=== PATIENT | male | born 1990 | race African-American/Black ===

== ENCOUNTER 2020-02-14 10:02 | Inpatient (IN) | payer OTHER, SELFPAY ==
[2020-02-14] VITALS (10 sets, daily range): BP systolic 96–140; BP diastolic 58–75; PULSE 72–121; RESP 16–28; TEMP 37.3–40.2; O2SAT 95–99
--- NOTE | ~2020-02-14 | XR_ITS ---
EXAMINATION: XR chest 1V portable EXAM DATE: 02/14/2020 11:43 INDICATION: Cough. TECHNIQUE: Portable AP frontal chest x-ray was obtained. Comparison is made to prior examination from 04/13/2018. FINDINGS: Small amount of linear left basilar subsegmental atelectasis. Possible small amount of righ t infrahilar less well-defined airspace disease. The lungs are otherwise clear. There are no pleural effusions. The cardiomediastinal silhouette is within normal limits. There is no pneumothorax susp ected. The bones and soft tissues are unremarkable. IMPRESSION: Small amount of infrahilar atelectasis and possibly developing infection. Reviewed, dictated and finalized at location A. RVISORY CBP OFFICER IMPRESSION: Small amount of infrahilar atelectasis and possibly developing infe ction.
--- NOTE | ~2020-02-14 | XR_ITS ---
EXAMINATION: XR chest 1V portable EXAM DATE: 02/17/2020 09:06 INDICATION: COVID-19, cough. TECHNIQUE: Portable AP frontal chest x-ray was obtained. Comparison is made to prior examination from 02/14/2020. FINDINGS: There is been progression in the mild amount of bilateral infrahilar acute airspace disease , likely acute infectious process. There is no pneumothorax suspected. There are no pleural effusions . Cardiomediastinal silhouette is normal. There are no osseous abnormalities identified. IMPRESSION: Mild bibasilar acute airspace disease, mild interval progression. Reviewed, dictated and finalized at location A. ER SKATES ASSEMBLER
--- NOTE | ~2020-02-14 | CT_ITS ---
EXAMINATION: CTA chest PE protocol DATE: 02/19/2020 15:40 INDICATION: Pleuritic chest pain. Blood tinged sputum. Tachycardia. TECHNIQUE: Computed tomography angiography (CTA) of the chest was performed with 100 mL Omnipaque-350 intravenous contrast timed to evaluate the pulmonary arteries. Coronal maximum intensity projection 3D-reconstructions were created by the technologist. Automated exposure control and iterative reconst ruction technique were employed. Exam dose: 325.64 mGy-cm total exam DLP. COMPARISON: 02/17/2020 portable AP chest FINDINGS: There is moderate opacification of the pulmonary arteries and no evidence of pulmonary embo lism. No thoracic aortic aneurysm or dissection. Normal heart size. The thyroid gland appears of normal size and homogeneous enhancement. Mild bilateral hilar gosia and mediastinal gosia prominence, likely reactive to bilateral pulmonary i nfiltrates. There are are prominent scattered bilateral patchy consolidating infiltrates involving al l lobes, most prominent in the right upper and lower lobes. The findings suggest bilateral pneumonia. Normal morphology of the adrenal glands. Included upper abdominal structures are unremarkable. IMPRESSION: Bilateral pneumonia with probable mild bilateral hilar and mediastinal reactive lymph no de prominence No evidence of pulmonary embolism Reviewed, dictated and finalized at Location A. Reviewed, dictated and finalized at location A. CH OPERATIONS COORDINATOR IMPRESSION: Bilateral pneumonia with probable mild bilateral hilar and mediast inal reactive lymph node prominence No evidence of pulmonary embolism
--- NOTE | ~2020-02-14 | XR_ITS ---
EXAMINATION: XR chest 1V portable INDICATION: Cough, COVID 19 pneumonia TECHNIQUE: Portable AP chest at 1437 hours COMPARISON: 02/19/2020, 02/17/2020 FINDINGS: Patchy bilateral airspace opacities persist with slight worsening in the left lung base. Th ere is no pleural effusion or pneumothorax. The cardiomediastinal silhouette is normal. The visualize d osseous structures are unremarkable. IMPRESSION: 1. Patchy bilateral airspace opacities, with slight worsening in the left lung base, consistent with COVID 19 pneumonia. Reviewed, dictated and finalized at location A. ATION MANAGERS
--- NOTE | 2020-02-14 11:01 | ECG_ITS ---
Measurements Intervals [place] Rate: 116 P: 40 NE: 139 QRS: 37 QRSD: 87 T: 37 QT: 289 QTc: 403 Interpretive Statements SINUS TACHYCARDIA NONSPECIFIC ST & T-WAVE ABNORMALITY- INFERIOR LEADS ABNORMAL ECG Electronically Signed On 02-14-2020 13:29:37 TIE CUTTER by Sarbjit Figueroa D.O.
--- NOTE | 2020-02-14 11:10 | ED.FEVER ---
HPI - Fever General Chief Complaint: Fever Stated Complaint: recurring fever, coughing up mucous Time Seen by Provider: 02/14/20 10:37 Source: patient Mode of arrival: ambulatory Limitations: no limitations History of Present Illness HPI Narrative: This patient is a 29 year old male with history of asthma who presents for evaluation of fever. He has been having a fever for the past 3 days. This morning he had a fever of 103 F at 7 am . He states he took tylenol 1000 mg and elliot seltzer at that time. He reports cough that is productive with yellow and green sputum. He denies chest pain or sob. He reports diarrhea but denies nausea or vomiting. He reports abdominal pain only when he coughs. He had a rapid covid test that was negative 2 days ago. Related Data Home Medications Medication Instructions Recorded Confirmed albuterol sulfate 1 inh INHALATION QID PRN 02/27/19 02/14/20 fluticasone propion-salmeterol 1 puff INHALATION BID 02/27/19 02/14/20 [AirDuo RespiClick] Allergies Allergy/AdvReac Type Severity Reaction Status Date / Time dog dander Allergy Unknown Unknown Verified 02/14/20 15:57 ibuprofen Allergy Unknown LIP Verified 02/14/20 15:57 SWELLING aspirin Allergy Swelling Verified 02/14/20 15:57 of Lip/Tongue/Throat Review of Systems Review of Systems: All systems reviewed & are unremarkable except as noted in HPI and below Constitutional: Constitutional: Reports chills and Reports fever(s) Cardiovascular: Cardiovascular: Denies chest pain Respiratory: Respiratory: Reports cough and Denies dyspnea Gastrointestinal: Gastrointestinal: Reports abdominal pain, Reports diarrhea and Denies nausea Neurologic: Reports headache(s) [facility] Past Medical History Medical History (Updated 02/14/20 @ 19:13 by Hui Villegas MD) Asthma Sickle cell trait Surgical History Surgical History (Updated 02/27/19 @ 18:35 by Pa Sawyer MD) No pertinent past surgical history Social History Social History (Updated 02/14/20 @ 15:23 by Kelly Ho PA-C) Social History: The patient lives in [place] with his . He works at [employer]. No alcohol, tobacco, or illicit substance use. He designates his is his surrogate decision maker and he wishes to be a full code. Smoking status: Never smoker Alcohol intake: current Drinks per week: 1 Substance use: never Substance use type: does not use Gender identity (if verbalized by the patient): Male Sexual Orientation (if Verbalized by the Patient): Straight or Heterosexual Spiritual care concerns: No Exam Const: General: no acute distress and alert Orientation/consciousness: patient oriented x3 HENMT: Head: atraumatic Face and sinus: face symmetric Eyes: EOM: EOMs intact bilaterally Resp: Effort & Inspection: normal respiratory effort and no retractions Auscultation: clear to auscultation bilaterally Cardio: Rate: tachycardic Rhythm: regular rhythm Heart sounds: no murmurs GI: GI Palp: Yes Soft to palpation, No Tenderness to palpation present (GI) and No Guarding due to palpation present (GI) Auscultation: normal bowel sounds Skin: General skin exam: normal color Rashes: no rashes Neuro: General: patient oriented x3 and moves all extremities Extrem: General: normal to inspection and no pedal edema Course Consultations Consultation #1: I Discussed case with Kelly ho who accepts patient to admission with pneumonia, sepsis. PUI covid. Date: 02/14/20 Time: 14:17 Vital Signs Vital signs: Vital Signs Temperature 104.3 F H 02/14/20 10:12 Pulse Rate 114 H 02/14/20 10:12 Respiratory Rate 22 H 02/14/20 10:12 Blood Pressure 140/75 02/14/20 10:12 Pulse Oximetry 97 02/14/20 10:12 Temperature 99.1 F 02/14/20 16:00 Pulse Rate 107 H 02/14/20 16:00 Respiratory Rate 18 02/14/20 16:00 Blood Pressure 124/63 02/14/20 16:00 Pulse Oximetry 99
[2020-02-14] MEDS: ALBUTEROL SULFATE (*SP) AEROSOL 1 PUFF 2 PUFF INHALATION (11:20)
[2020-02-14 11:24] LABS: Alveolar/Arterial O2 Gradient 62.3 mmHg; Base Excess ABG -0.4 mEq/l (+/-2.0); Carboxyhemoglobin 0.5 % THb (0-2.0); Fractional Inspired Oxygen 21 %; HCO3 ABG 21.8 mEq/l (22.0-26.0); Methemoglobin ABG 0.3 %THb (0-1.5); Oxygen Content ABG 18.1 %vol (16.0-22.0); Oxyhemoglobin 90.1 % THb (90.0-100.0); PCO2 ABG 29.4 mmHg (35.0-45.0); PO2 ABG 52.2 mmHg (80.0-100.0); PO2 FiO2 Ratio Arterial Blood 2.49 %; Reduced Hemoglobin 9.1 %THb (0-5.0); Total Hemoglobin 14.3 g/dL (12.0-18.0); pH ABG 7.488 (7.350-7.450)
[2020-02-14 11:25] LABS: Device ROOM AIR; Modified Allen's Test Pass; Site Drawn LEFT RADIAL
[2020-02-14] MEDS: ONDANSETRON INJ 4 MG/2 ML VIAL IV PUSH (11:47)
[2020-02-14] MEDS: SODIUM CHLORIDE 0.9% IV 1,000 ML 999 ML IV CONT ×3 (11:47→14:40)
[2020-02-14 11:50] LABS: Basophils Percent Auto 0.6 % (0.2-1.2); Eosinophils Percent Auto 0.4 % (0-4.4); Hematocrit 44.5 % (42.0-52.0); Hemoglobin 13.8 g/dL (14.0-18.0); Immature Granulocyte Absolute 0.02 K/mm3 (0.00-0.031); Immature Granulocyte Percent A 0.3 % (0-0.5); Lymphocytes Absolute Auto 0.41 K/mm3 (0.9-3.2); Lymphocytes Percent Auto 6.1 % (18.3-44.2); Mean Corpuscular Hemoglobin 22.3 pg (26-34); Mean Corpuscular Volume 71.9 fl (80-100); Mean Platelet Volume 10.3 fl (7.4-10.4); Monocytes Absolute Auto 0.9 K/mm3 (0.1-0.6); Monocytes Percent Auto 12.9 % (2.6-8.5); Neutrophils Absolute Auto 5.3 K/mm3 (1.3-6.7); Neutrophils Percent Auto 79.7 % (45.5-73.1); Platelet Count Result 201 k/mm3 (150-375); Red Blood Count 6.19 M/mm3 (4.6-6.20); Red Cell Distribution Width 15.8 % (11.5-14.5); White Blood Count 6.7 K/mm3 (4.5-10.0)
[2020-02-14 12:04] LABS: Alanine Aminotransferase 23 U/L (4-50); Albumin Level 4.2 g/dL (3.5-5.1); Alkaline Phosphatase 98 U/L (38-126); Anion Gap 9 mmol/L (8-16); Aspartate Amino Transferase 31 U/L (17-59); Bilirubin,Total 0.6 mg/dL (0.2-1.3); Blood Urea Nitrogen 13 mg/dL (9-20); CRP 1.6 mg/dL (<1.0); Carbon Dioxide 27 mmol/L (22-30); Chloride 100 mmol/L (98-107); Estimated CRCL calculation 95 ml/min; Estimated Glomerular Filt Rate > 60; Glucose 104 mg/dL (75-110); Potassium 4.1 mmol/L (3.4-5.0); Sodium 136 mmol/L (137-145)
[2020-02-14 12:28] LABS: Prothrombin Time 14.1 Seconds (11.1-14.7)
[2020-02-14 12:29] LABS: Partial Thromboplastin Time 31.1 SECONDS (22.3-36.8)
[2020-02-14 12:32] LABS: Lactic Acid Reflex 2.2 mmol/L (0.7-2.1)
[2020-02-14 14:59] LABS: Add Urine Microscopic? YES; Appearance Urine Clear (Clear); Bilirubin Urine Negative (Negative); Blood Urine Negative (Negative); Color Urine Yellow (Yellow); Glucose Urine UA Negative (Negative); Ketones Urine Negative (Negative); Leukocyte Esterase Ur Negative LEU/UL (Negative); Mucus Urine Rare /lpf; Nitrate Urine Negative (Negative); Protein Urine 1+ mg/dL (Negative); RBC Urine 0-2 /hpf (0-2); Specific Grav Ur 1.026 (1.001-1.035); Urobilinogen Urine Negative mg/dL (<2.0); WBC Urine 0-3 /hpf
[2020-02-14 15:16] LABS: Reflex Lactic Acid Yes or No Add Lactic
--- NOTE | 2020-02-14 15:48 | ADMGEN ---
This patient, Jose L Rivera, was admitted to 3 [facility] Surg Room 303-01. Patient/family oriented to hospital policies and general routines including ID bracelet, bed and alarms, visiting hours, pain management, procedures, bathroom and other care routines, personal items, smoking policy, room service/diet, and visiting hours. Information on how to activate the Rapid Response Team has been discussed. Patient/Family are encouraged to report perceived risks to care and to ask questions if they do not understand what they are told or what they should do.
[2020-02-14 16:37] LABS: Lactic Acid 1.6 mmol/L (0.7-2.1)
[2020-02-14] MEDS: SODIUM CHLORIDE 0.9% IV 1,000 ML 125 ML IV CONT (16:37)
--- NOTE | 2020-02-14 17:30 | PM.IMHP ---
H&P: HPI History of Present Illness Date/Time: 02/14/20 17:30 Chief Complaint: Fever, productive cough. Narrative: Jose L Rivera is a 29-year-old male with asthma who presented to the emergency department earlier today via private vehicle from home with multiple complaints including fever and productive cough. He began feeling poorly on Tuesday with generalized malaise and low-grade fever. The following day he developed chills, sweats, and cough productive of green/yellow phlegm. He also reports 1 to 2 loose stools per day in addition to fatigue, headache, sinus congestion, and body aches. Acetaminophen and Deanne-Epps have provided him with little benefit. He reportedly had a rapid COVID test at work on Tuesday which was negative although several of his coworkers have had COVID. The patient has been diligent about wearing his mask at work. He lives at home with his , and she has not had similar symptoms. Review of Systems Review of Systems: Narrative: Twelve systems were reviewed with pertinent positives and negatives as per HPI. He denies vomiting. No significant sore throat. No dysuria, urgency, or urinary hesitancy. It sounds as though he has hidradenitis suppurativa and within the last couple of weeks he has had to lumps pop up in the left axilla which are somewhat tender to palpation. There is been no drainage, erythema, or warmth at the site. Asthma is well controlled, he rarely has to use his rescue inhaler. Except as documented, all other systems were reviewed and are negative. [facility] Past Medical History Medical History Asthma Sickle cell trait Surgical History Surgical History No pertinent past surgical history Family History Family History (Updated 02/14/20 @ 22:43 by Kelly Ho PA-C) Father Sickle cell disease Sibling Sickle cell trait Mother Drug overdose Social History Social History (Updated 02/14/20 @ 22:43 by Kelly Ho PA-C) Social History: The patient lives in [place] with his . He has no children. He works at [employer]. Lifelong nonsmoker. Consumes perhaps 1 alcoholic beverage a week. No illicit substance use. He designates his as his surrogate decision maker and he wishes to be a full code. Gender identity (if verbalized by the patient): Male Sexual Orientation (if Verbalized by the Patient): Straight or Heterosexual Spiritual care concerns: No Meds Home Medications and Allergies Home Medications Medication Instructions Recorded Confirmed Type albuterol sulfate 1 inh INHALATION QID PRN 02/27/19 02/14/20 History fluticasone propion-salmeterol 1 puff INHALATION BID 02/27/19 02/14/20 History [AirDuo RespiClick] Allergies Allergy/AdvReac Type Severity Reaction Status Date / Time dog dander Allergy Unknown Unknown Verified 02/14/20 15:57 ibuprofen Allergy Unknown LIP Verified 02/14/20 15:57 SWELLING aspirin Allergy Swelling Verified 02/14/20 15:57 of Lip/Tongue/Throat Vital Signs Vital Signs - 24 hr 02/14/20 10:12 02/14/20 10:15 02/14/20 11:00 Temperature 104.3 F H Pulse Rate 114 H 72 Respiratory Rate 22 H 22 H 18 Blood Pressure 140/75 Pulse Oximetry 97 97 97 02/14/20 13:37 02/14/20 14:00 02/14/20 14:43 Temperature 102.8 F H 100.8 F H Pulse Rate 121 H 112 H Respiratory Rate 17 28 H Blood Pressure 96/63 L 112/58 L Pulse Oximetry 95 97 Exam Narrative: Exam Narrative: General: Mildly ill-appearing male sitting up bed in no distress. Weight: 87.1 kg. BMI: 20.7. HEENT: PERRL, EOMI. Sclerae anicteric. Oral mucosa tacky. Neck: Supple. No lymphadenopathy. Respiratory: Scattered rhonchi which improved with coughing. Cardiovascular: Tachycardic with S1-S2. Heart rate around 105 at the time my evaluation. Gastrointestinal: Abdomen
[2020-02-14] MEDS: ACETAMINOPHEN 325 MG TABLET 650 MG PO ×2 (18:31→22:50)
--- NOTE | 2020-02-14 22:47 | PC.NURSE ---
Ice packs applied to pt armpits, neck, and legs for fever.
[2020-02-15] VITALS (12 sets, daily range): BP systolic 120–139; BP diastolic 57–89; PULSE 85–102; RESP 16–20; TEMP 37.1–38.2; O2SAT 94–100
[2020-02-15] MEDS: SODIUM CHLORIDE 0.9% IV 1,000 ML 125 ML IV CONT (00:19)
[2020-02-15] MEDS: ACETAMINOPHEN 325 MG TABLET 650 MG PO ×4 (03:30→21:10)
[2020-02-15 06:10] LABS: Basophils Percent Auto 0.5 % (0.2-1.2); Hematocrit 39.7 % (42.0-52.0); Hemoglobin 12.4 g/dL (14.0-18.0); Immature Granulocyte Absolute 0.01 K/mm3 (0.00-0.031); Immature Granulocyte Percent A 0.2 % (0-0.5); Lymphocytes Absolute Auto 1.11 K/mm3 (0.9-3.2); Lymphocytes Percent Auto 25.6 % (18.3-44.2); Mean Corpuscular HGB Conc 31.2 g/dl (32-36); Mean Corpuscular Hemoglobin 22.7 pg (26-34); Mean Corpuscular Volume 72.6 fl (80-100); Monocytes Absolute Auto 0.6 K/mm3 (0.1-0.6); Monocytes Percent Auto 14.3 % (2.6-8.5); Neutrophils Absolute Auto 2.6 K/mm3 (1.3-6.7); Neutrophils Percent Auto 59.4 % (45.5-73.1); Platelet Count Result 164 k/mm3 (150-375); Red Blood Count 5.47 M/mm3 (4.6-6.20); White Blood Count 4.3 K/mm3 (4.5-10.0)
[2020-02-15] MEDS: SODIUM CHLORIDE 0.9% IV 1,000 ML 85 ML IV CONT (08:24)
[2020-02-15 08:54] LABS: Alanine Aminotransferase 19 U/L (4-50); Albumin Level 3.2 g/dL (3.5-5.1); Alkaline Phosphatase 59 U/L (38-126); Anion Gap 7 mmol/L (8-16); Aspartate Amino Transferase 33 U/L (17-59); Bilirubin,Total 0.3 mg/dL (0.2-1.3); Blood Urea Nitrogen 10 mg/dL (9-20); Calcium 7.9 mg/dL (8.4-10.2); Carbon Dioxide 25 mmol/L (22-30); Chloride 102 mmol/L (98-107); Estimated CRCL calculation 95 ml/min; Estimated Glomerular Filt Rate > 60; Glucose 95 mg/dL (75-110); Magnesium 1.5 mg/dL (1.6-2.3); Potassium 3.4 mmol/L (3.4-5.0); Sodium 134 mmol/L (137-145)
[2020-02-15 09:20] LABS: CRP 5.6 mg/dL (<1.0); Lactate Dehydrogenase 477 U/L (313-618)
--- NOTE | 2020-02-15 09:43 | PM.IMPN ---
Progress Note: A&P Assessment and Plan (1) Sepsis: Code(s): A41.9 - Sepsis, unspecified organism Status: Acute Assessment and Plan: Patient met criteria for sepsis upon admission supported by fever, tachycardia, tachypnea, and elevated lactic acid level. Source is not entirely clear but CXR demonstrates possible developing infection and he does endorse respiratory symptoms. His lactic acid level normalized following IV fluid rehydration. He has been febrile with T-max of 104.3?. His fever seems to be improving and he had only a low-grade fever this morning. CRP is elevated. He has mild leukopenia. Continue with gentle IV fluids Continue IV antibiotics at this time Blood culture and sputum culture pending Monitor vital signs and electrolytes closely (2) Community acquired pneumonia: Code(s): J18.9 - Pneumonia, unspecified organism Status: Acute Assessment and Plan: CXR concerning for development of infection. Patient is febrile. He reports he yellow sputum production and cough. He is maintaining adequate oxygen saturations on room air. Continue IV ceftriaxone and azithromycin Urine Legionella and pneumococcal antigens are pending Sputum culture is pending Supportive care to include acetaminophen as needed for fever, bronchodilators, expectorants. (3) Suspected COVID-19 virus infection: Code(s): Z20.828 - Contact with and (suspected) exposure to other viral communicable diseases Status: Acute Assessment and Plan: Patient reports contact with coworkers who have had COVID who reports compliance with asking and distance thing. He reportedly had a negative rapid COVID test on 02/10. Continue isolation precautions while awaiting COVID test results If patient is positive for COVID, will discontinue antibiotics. At this time, he is not a candidate for dexamethasone or remdesivir as he has no oxygen requirements. Supportive care as above Trend acute phase reactants. (4) Asthma: Code(s): J45.909 - Unspecified asthma, uncomplicated Status: Inactive Assessment and Plan: Mild. Not in acute exacerbation. He denies wheezing. Lungs are clear to auscultation. Continue bronchodilators as needed Additional Plan Magnesium slightly low and will be supplemented. Will continue to monitor magnesium. Subjective Date/time seen: 02/15/20 09:43 Interval history: Date of service: 02/15/2020 Jose L Rivera is a 29-year-old male with history of asthma and sickle cell trait who is seen in follow-up for sepsis of unspecified origin, likely pneumonia. He reports he is feeling better today. He is still having fevers and endorsing chills but this seems to be improving. Denies sweats. He reports occasional cough productive of yellowish sputum. He denies shortness of breath, chest pain, or palpitations. He denies sore throat, and nausea, or dysgeusia. He has been able to ambulate without difficulty and denies HOLM. He had previously been endorsing headaches and body aches. His headaches have resolved and his body aches seem to be improving. He denies nausea or vomiting. He has been eating well. He denies abdominal pain. He had a loose stool yesterday. He denies any urinary symptoms. He has no additional concerns at this time. Review of Systems Review of Systems: All systems reviewed & are unremarkable except as noted in HPI and below Exam Narrative: Exam Narrative: Mr. Rivera is a well-nourished, well-appearing 29-year-old male who is lying semi-recumbent in bed. He appears comfortable and is in NARD. HR 88, BP 128/61, RR 16, T 99.8?, 96% on room air Neuro: awake, alert and oriented x4, speech clear, no focal neuro deficits noted HEENMT: normocephalic, atraumatic, EOMI, sclerae anicteric, moist oral mucosa, tongue midline, nares patent Neck: supple, no lymphadenopathy Respiratory: clear to auscultation bilaterally without crackl
[2020-02-15] MEDS: MAGNESIUM SULF 1 GM/D5W 100 ML 1 GM/100 ML BAG IVPB (10:41)
[2020-02-15] MEDS: guaiFENesin 12 HR 600 MG TABCR PO ×2 (10:41→21:11)
[2020-02-16] VITALS (7 sets, daily range): BP systolic 111–137; BP diastolic 62–78; PULSE 94–105; RESP 20; TEMP 37.5–39.4; O2SAT 93–100
[2020-02-16] MEDS: SODIUM CHLORIDE 0.9% IV 1,000 ML 85 ML IV CONT (02:22)
[2020-02-16 06:17] LABS: Hematocrit 39.6 % (42.0-52.0); Hemoglobin 12.5 g/dL (14.0-18.0); Mean Corpuscular HGB Conc 31.6 g/dl (32-36); Mean Corpuscular Hemoglobin 22.2 pg (26-34); Mean Corpuscular Volume 70.3 fl (80-100); Mean Platelet Volume 9.6 fl (7.4-10.4); Platelet Count Result 180 k/mm3 (150-375); Red Blood Count 5.63 M/mm3 (4.6-6.20); Red Cell Distribution Width 14.6 % (11.5-14.5); White Blood Count 4.9 K/mm3 (4.5-10.0)
[2020-02-16 07:18] LABS: Alanine Aminotransferase 20 U/L (4-50); Albumin Level 3.5 g/dL (3.5-5.1); Alkaline Phosphatase 61 U/L (38-126); Anion Gap 9 mmol/L (8-16); Aspartate Amino Transferase 39 U/L (17-59); Bilirubin,Total 0.3 mg/dL (0.2-1.3); Blood Urea Nitrogen 10 mg/dL (9-20); CRP 5.3 mg/dL (<1.0); Calcium 8.5 mg/dL (8.4-10.2); Carbon Dioxide 24 mmol/L (22-30); Chloride 103 mmol/L (98-107); Estimated CRCL calculation 113 ml/min; Estimated Glomerular Filt Rate > 60; Glucose 106 mg/dL (75-110); Magnesium 1.7 mg/dL (1.6-2.3); Potassium 3.7 mmol/L (3.4-5.0); Sodium 136 mmol/L (137-145)
[2020-02-16] MEDS: ENOXAPARIN 40 MG/0.4 ML SYRINGE SUB-Q (08:26)
[2020-02-16] MEDS: guaiFENesin 12 HR 600 MG TABCR PO ×2 (08:27→20:15)
--- NOTE | 2020-02-16 11:01 | PM.IMPN ---
Progress Note: A&P Assessment and Plan (1) Sepsis: Code(s): A41.9 - Sepsis, unspecified organism Status: Acute Assessment and Plan: Patient met criteria for sepsis upon admission supported by fever, tachycardia, tachypnea, and elevated lactic acid level. Source is not entirely clear but CXR demonstrates possible developing infection and he does endorse respiratory symptoms. His lactic acid level normalized following IV fluid rehydration. He has been febrile with T-max of 104.3?. He is mildly tachycardic. CRP is elevated. He is feeling well. Will administer 500 ml fluid bolus and then will continue with maintenance fluids. Continue IV antibiotics at this time Blood culture pending. Sputum culture not performed due to oropharyngeal contamination and will be repeated Patient reporting watery stools therefore will check stool culture for C. diff or other GI infection. COVID-19 test pending Monitor vital signs and electrolytes closely Acetaminophen for fever (2) Fever: Code(s): R50.9 - Fever, unspecified Status: Acute Assessment and Plan: Patient presented with fevers; Tmax 104.3. He had low grade fevers yesterday and his temp was 103.0? this morning. Fevers seem to be responding to Tylenol and then return. Related to sepsis as above. Continue PO acetaminophen as needed for fever. Can consider transition to IV ofirmev if needed. Cannot supplement with ibuprofen or other NSAID due to allergy. Monitor temperature closely Ice packs as needed (3) Community acquired pneumonia: Code(s): J18.9 - Pneumonia, unspecified organism Status: Acute Assessment and Plan: CXR concerning for development of infection. Patient is febrile. He reports he has white sputum production and cough. He is maintaining adequate oxygen saturations on room air. Influenza negative. Covid-19 pending. Continue IV ceftriaxone and azithromycin Urine Legionella and pneumococcal antigens are pending Repeat sputum culture has been ordered as above Supportive care to include acetaminophen as needed for fever, bronchodilators, expectorants. (4) Suspected COVID-19 virus infection: Code(s): Z20.828 - Contact with and (suspected) exposure to other viral communicable diseases Status: Acute Assessment and Plan: Patient reports contact with coworkers who have had COVID but reports compliance with masking and distancing. He reportedly had a negative rapid COVID test on 02/10. Continue isolation precautions while awaiting COVID test results If patient is positive for COVID, will discontinue antibiotics. At this time, he is not a candidate for dexamethasone or remdesivir as he has no oxygen requirements. Supportive care as above Trend acute phase reactants. (5) Asthma: Code(s): J45.909 - Unspecified asthma, uncomplicated Status: Inactive Assessment and Plan: Mild. Not in acute exacerbation. He denies wheezing. Lungs are clear to auscultation. Continue bronchodilators as needed Resume home AirDuo inhaler per patient request (6) DVT prophylaxis: Code(s): Z29.9 - Encounter for prophylactic measures, unspecified Status: Acute Assessment and Plan: Patient has refused Lovenox injections. Discussed risk for clotting, especially if patient has COVID-19. He adamantly denies Lovenox or other anticoagulant medications at this time. He states he prefers to wait until the results of COVID test are available. He reports that he would rather ambulate frequently. He has agreed to [facility] which will be employed. Subjective Date/time seen: 02/16/20 11:01 Interval history: Date of service: 02/16/2020 Jose L Rivera is a 29-year-old male with history of asthma and sickle cell trait who is seen in follow-up for sepsis secondary to suspected pneumonia. he is feeling well today. He denies shortness of breath, chest pain, palpitations. He is
[2020-02-16] MEDS: SODIUM CHLORIDE 0.9% IV 500 ML IV CONT (12:00)
[2020-02-16] MEDS: ACETAMINOPHEN 325 MG TABLET 650 MG PO ×2 (15:00→23:40)
[2020-02-16 19:30] LABS: SARS-CoV-2 RNA PCR Positive
[2020-02-17] VITALS (9 sets, daily range): BP systolic 116–135; BP diastolic 70–81; PULSE 82–102; RESP 18–20; TEMP 36.9–38.8; O2SAT 91–99
[2020-02-17 04:54] LABS: Pneumococcal Antigen Urine Not Detected (Not Detected)
[2020-02-17 06:34] LABS: Basophils Percent Auto 0.3 % (0.2-1.2); Hematocrit 44.1 % (42.0-52.0); Hemoglobin 13.9 g/dL (14.0-18.0); Lymphocytes Absolute Auto 0.99 K/mm3 (0.9-3.2); Lymphocytes Percent Auto 30.7 % (18.3-44.2); Mean Corpuscular HGB Conc 31.5 g/dl (32-36); Mean Corpuscular Hemoglobin 22.9 pg (26-34); Mean Corpuscular Volume 72.5 fl (80-100); Mean Platelet Volume 9.8 fl (7.4-10.4); Monocytes Absolute Auto 0.2 K/mm3 (0.1-0.6); Monocytes Percent Auto 7.4 % (2.6-8.5); Neutrophils Percent Auto 61.6 % (45.5-73.1); Platelet Count Result 146 k/mm3 (150-375); Red Blood Count 6.08 M/mm3 (4.6-6.20); Red Cell Distribution Width 15.2 % (11.5-14.5); White Blood Count 3.2 K/mm3 (4.5-10.0)
[2020-02-17 06:52] LABS: Alanine Aminotransferase 22 U/L (4-50); Albumin Level 3.7 g/dL (3.5-5.1); Alkaline Phosphatase 60 U/L (38-126); Anion Gap 10 mmol/L (8-16); Aspartate Amino Transferase 42 U/L (17-59); Bilirubin,Total 0.4 mg/dL (0.2-1.3); Blood Urea Nitrogen 8 mg/dL (9-20); Calcium 8.5 mg/dL (8.4-10.2); Carbon Dioxide 23 mmol/L (22-30); Chloride 103 mmol/L (98-107); Estimated CRCL calculation 113 ml/min; Estimated Glomerular Filt Rate > 60; Glucose 94 mg/dL (75-110); Potassium 4.1 mmol/L (3.4-5.0); Sodium 136 mmol/L (137-145)
[2020-02-17] MEDS: guaiFENesin 12 HR 600 MG TABCR PO ×2 (09:19→20:34)
[2020-02-17 09:24] LABS: Legionella pneumophila Ag Ur Not Detected (Not Detected)
--- NOTE | 2020-02-17 11:09 | P.PNIM_ITS ---
Progress Note: A&P Assessment and Plan (1) Sepsis: Code(s): A41.9 - Sepsis, unspecified organism Status: Acute Assessment and Plan: Patient met criteria for sepsis upon admission supported by fever, tachycardia, tachypnea, and elevated lactic acid level. Suspect secondary to viral infection. His lactic acid level normalized following IV fluid rehydration. He has been febrile with T-max of 104.3?. Tachycardia improving. Tachypnea resolved. He is feeling well. Influenza negative. * Continue normal saline 85 ml/hr * IV antibiotics have been discontinued as this is most likely viral * Blood culture pending with NGTD on prelim results. Sputum culture not performed due to oropharyngeal contamination and will be repeated * Monitor vital signs and electrolytes closely * Acetaminophen for fever (2) Fever: Code(s): R50.9 - Fever, unspecified Status: Acute Assessment and Plan: Patient presented with fevers; Tmax 104.3. He had temps up to 102 yesterday and today low grade 99.7. Fevers seem to be responding to Tylenol. Related to sepsis as above. * Continue PO acetaminophen as needed for fever. Can consider transition to IV ofirmev if needed. Cannot supplement with ibuprofen or other NSAID due to allergy. * Monitor temperature closely * Ice packs as needed (3) Pneumonia due to COVID-19 virus: Code(s): U07.1 - COVID-19; J12.89 - Other viral pneumonia Status: Acute Assessment and Plan: Initial CXR concerning for development of infection. He has been febrile complain of white sputum production and cough. He has been maintaining adequate oxygen saturations on room air. Repeat CXR today shows mild bibasilar acute airspace disease. * Continue isolation precautions * At this time, he is not a candidate for [facility] as he has no oxygen requirements * IV antibiotics have been discontinued as it was highly unlikely is a secondary bacterial pneumonia * Supportive care to include antipyretics, expectorants, and bronchodilators * Trend acute phase reactants (4) Community acquired pneumonia: Code(s): J18.9 - Pneumonia, unspecified organism Status: Acute Assessment and Plan: Symptom onset 02/10/2020. He reports a negative rapid COVID test on 02/10. CXR concerning for development of infection. Patient is febrile. He reports he has white sputum production and cough. He tested positive for COVID on 02/14/20. He is maintaining adequate oxygen saturations on room air. Influenza negative. Covid-19 pending. * Continue IV ceftriaxone and azithromycin * Urine Legionella and pneumococcal antigens are pending * Repeat sputum culture has been ordered as above * Supportive care to include acetaminophen as needed for fever, bronchodilators, expectorants. (5) Asthma: Code(s): J45.909 - Unspecified asthma, uncomplicated Status: Inactive Assessment and Plan: Mild. Not in acute exacerbation. He denies wheezing. Lungs are clear to auscultation. * Continue bronchodilators as needed * Resume home AirDuo inhaler per patient request (6) DVT prophylaxis: Code(s): Z29.9 - Encounter for prophylactic measures, unspecified Status: Acute Assessment and Plan: Patient has refused Lovenox injections. Discussed risk for clotting, especially with COVID-19. He adamantly denies Lovenox or other anticoagulant medications. He reports that he would rather ambulate frequently. He has agreed to [employer] which will be employed. Subjective Date/time seen: 01/22
--- NOTE | 2020-02-17 11:09 | PM.IMPN ---
Progress Note: A&P Assessment and Plan (1) Sepsis: Code(s): A41.9 - Sepsis, unspecified organism Status: Acute Assessment and Plan: Patient met criteria for sepsis upon admission supported by fever, tachycardia, tachypnea, and elevated lactic acid level. Suspect secondary to viral infection. His lactic acid level normalized following IV fluid rehydration. He has been febrile with T-max of 104.3?. Tachycardia improving. Tachypnea resolved. He is feeling well. Influenza negative. Continue normal saline 85 ml/hr IV antibiotics have been discontinued as this is most likely viral Blood culture pending with NGTD on prelim results. Sputum culture not performed due to oropharyngeal contamination and will be repeated Monitor vital signs and electrolytes closely Acetaminophen for fever (2) Fever: Code(s): R50.9 - Fever, unspecified Status: Acute Assessment and Plan: Patient presented with fevers; Tmax 104.3. He had temps up to 102 yesterday and today low grade 99.7. Fevers seem to be responding to Tylenol. Related to sepsis as above. Continue PO acetaminophen as needed for fever. Can consider transition to IV ofirmev if needed. Cannot supplement with ibuprofen or other NSAID due to allergy. Monitor temperature closely Ice packs as needed (3) Pneumonia due to COVID-19 virus: Code(s): U07.1 - COVID-19; J12.89 - Other viral pneumonia Status: Acute Assessment and Plan: Initial CXR concerning for development of infection. He has been febrile complain of white sputum production and cough. He has been maintaining adequate oxygen saturations on room air. Repeat CXR today shows mild bibasilar acute airspace disease. Continue isolation precautions At this time, he is not a candidate for [facility] as he has no oxygen requirements IV antibiotics have been discontinued as it was highly unlikely is a secondary bacterial pneumonia Supportive care to include antipyretics, expectorants, and bronchodilators Trend acute phase reactants (4) Community acquired pneumonia: Code(s): J18.9 - Pneumonia, unspecified organism Status: Acute Assessment and Plan: Symptom onset 02/10/2020. He reports a negative rapid COVID test on 02/10. CXR concerning for development of infection. Patient is febrile. He reports he has white sputum production and cough. He tested positive for COVID on 12/24/20. He is maintaining adequate oxygen saturations on room air. Influenza negative. Covid-19 pending. Continue IV ceftriaxone and azithromycin Urine Legionella and pneumococcal antigens are pending Repeat sputum culture has been ordered as above Supportive care to include acetaminophen as needed for fever, bronchodilators, expectorants. (5) Asthma: Code(s): J45.909 - Unspecified asthma, uncomplicated Status: Inactive Assessment and Plan: Mild. Not in acute exacerbation. He denies wheezing. Lungs are clear to auscultation. Continue bronchodilators as needed Resume home AirDuo inhaler per patient request (6) DVT prophylaxis: Code(s): Z29.9 - Encounter for prophylactic measures, unspecified Status: Acute Assessment and Plan: Patient has refused Lovenox injections. Discussed risk for clotting, especially with COVID-19. He adamantly denies Lovenox or other anticoagulant medications. He reports that he would rather ambulate frequently. He has agreed to SCDs which will be employed. Subjective Date/time seen: 02/17/20 11:09 Interval history: Date of service: 02/17/2020 Jose L Rivera is a 29-year-old male with history of asthma and sickle cell trait who is seen in follow-up for sepsis secondary to suspected pneumonia. He is doing well today. He continues to complain of cough productive of clear/white sputum. He has mild dyspnea but has been able to ambulate to the restroom with no significant HOLM. He de
[2020-02-17] MEDS: ACETAMINOPHEN 325 MG TABLET 650 MG PO (17:41)
[2020-02-18] VITALS (14 sets, daily range): BP systolic 111–130; BP diastolic 68–77; PULSE 82–101; RESP 16–26; TEMP 37.2–39.3; O2SAT 95–100
[2020-02-18] MEDS: SODIUM CHLORIDE 0.9% IV 1,000 ML 85 ML IV CONT ×2 (02:54→12:50)
[2020-02-18] MEDS: LEVALBUTEROL NEB 1.25 MG/3 ML 0.63 MG INHALATION (03:43)
[2020-02-18] MEDS: ACETAMINOPHEN 325 MG TABLET 650 MG PO ×3 (03:57→15:05)
[2020-02-18 06:33] LABS: Hematocrit 41.8 % (42.0-52.0); Hemoglobin 13.4 g/dL (14.0-18.0); Mean Corpuscular HGB Conc 32.1 g/dl (32-36); Mean Corpuscular Hemoglobin 22.6 pg (26-34); Mean Corpuscular Volume 70.6 fl (80-100); Platelet Count Result 171 k/mm3 (150-375); Red Blood Count 5.92 M/mm3 (4.6-6.20); Red Cell Distribution Width 14.8 % (11.5-14.5); White Blood Count 3.6 K/mm3 (4.5-10.0)
[2020-02-18 06:45] LABS: Alanine Aminotransferase 26 U/L (4-50); Albumin Level 3.7 g/dL (3.5-5.1); Alkaline Phosphatase 57 U/L (38-126); Anion Gap 9 mmol/L (8-16); Aspartate Amino Transferase 45 U/L (17-59); Bilirubin,Total 0.5 mg/dL (0.2-1.3); Blood Urea Nitrogen 11 mg/dL (9-20); CRP 4.1 mg/dL (<1.0); Calcium 8.4 mg/dL (8.4-10.2); Carbon Dioxide 24 mmol/L (22-30); Chloride 103 mmol/L (98-107); Estimated CRCL calculation 113 ml/min; Estimated Glomerular Filt Rate > 60; Glucose 101 mg/dL (75-110); Potassium 3.6 mmol/L (3.4-5.0); Sodium 136 mmol/L (137-145)
[2020-02-18] MEDS: guaiFENesin 12 HR 600 MG TABCR PO ×2 (08:35→20:38)
[2020-02-18 10:29] LABS: Lactate Dehydrogenase 656 U/L (313-618)
[2020-02-18 10:42] LABS: Lactate Dehydrogenase 565 U/L (313-618)
[2020-02-18 10:55] LABS: Lactate Dehydrogenase 759 U/L (313-618)
--- NOTE | 2020-02-18 11:01 | PM.IMPN ---
Progress Note: A&P Assessment and Plan (1) Sepsis: Code(s): A41.9 - Sepsis, unspecified organism Status: Acute Assessment and Plan: Patient met criteria for sepsis upon admission supported by fever, tachycardia, tachypnea, and elevated lactic acid level. Suspect secondary to COVID-19. His lactic acid level normalized following IV fluid rehydration. He has been febrile with T-max of 104.3?. Tachycardia improving. Tachypnea resolved. Influenza negative. Continue normal saline 85 ml/hr IV antibiotics discontinued 02/17 as this is most likely secondary to viral illness Blood culture pending with NGTD on prelim results. 1st sputum culture not performed due to oropharyngeal contamination and second shows mckayla of normal jose. Stool cultures collected as patient endorsed watery stool, although unlikely to be infectious. C. diff testing not performed as stool was too formed making this highly unlikely. Monitor vital signs and electrolytes closely Acetaminophen for fever (2) Fever: Code(s): R50.9 - Fever, unspecified Status: Acute Assessment and Plan: Patient presented with fevers; Tmax 104.3. He is still spiking fevers and had temp of 102.3 this morning. Fevers seem to be responding to Tylenol. Related to sepsis as above. Continue PO acetaminophen as needed for fever. Can consider transition to IV ofirmev if needed. Cannot supplement with ibuprofen or other NSAID due to allergy. Monitor temperature closely Ice packs as needed (3) Pneumonia due to COVID-19 virus: Code(s): U07.1 - COVID-19; J12.89 - Other viral pneumonia Status: Acute Assessment and Plan: Initial CXR concerning for development of infection. He has been febrile and complains of sputum production and cough. He has been maintaining adequate oxygen saturations on room air. Repeat CXR today shows mild bibasilar acute airspace disease. He has mild leukopenia. Continue isolation precautions At this time, he is not a candidate for dexamethasone or remdesivir as he has no oxygen requirements IV antibiotics discontinued as it is highly unlikely he has a secondary bacterial pneumonia, Urine legionella and pneumococcal antigens are negative. Supportive care to include antipyretics, expectorants, and bronchodilators Trend acute phase reactants (4) Asthma: Code(s): J45.909 - Unspecified asthma, uncomplicated Status: Inactive Assessment and Plan: Mild. Not in acute exacerbation. He denies wheezing. Lungs are clear to auscultation. Continue bronchodilators as needed Continue home AirDuo inhaler per patient request (5) DVT prophylaxis: Code(s): Z29.9 - Encounter for prophylactic measures, unspecified Status: Acute Assessment and Plan: Patient has refused Lovenox injections. Discussed risk for clotting, especially with COVID-19. He adamantly denies Lovenox or other anticoagulant medications. He reports that he would rather ambulate frequently. He has agreed to SCDs which are currently in use. Subjective Date/time seen: 02/18/20 11:01 Interval history: Date of service: 02/18/2020 Jose L Rivera is a 29-year-old male with history of asthma and sickle cell trait who is seen in follow-up for sepsis secondary to COVID-19 pneumonia. Overall, he is doing well. Today he had some shortness of breath upon awakening that improved following albuterol inhaler use. He is still endorsing mild HOLM with ambulating to the bathroom. He is still coughing frequently with clear to white sputum production. He denies sinus congestion. He is still complaining of a tension type frontal headache that is typically resolved with Tylenol. Today he endorsed sweats but no chills. He is still having fevers. Denies body aches. He reports that he is still having loose stools. His appetite has been fair and he reports he does not like the food here. No nausea or vomiting. No di
[2020-02-18] MEDS: LEVALBUTEROL HFA (*SP) 15 GM INHALER 2 PUFF INHALATION (16:19)
[2020-02-19] VITALS (12 sets, daily range): BP systolic 118–140; BP diastolic 52–77; PULSE 88–122; RESP 20–22; TEMP 37.2–39.5; O2SAT 94–100
[2020-02-19] MEDS: LEVALBUTEROL HFA (*SP) 15 GM INHALER 2 PUFF INHALATION ×3 (00:44→16:00)
[2020-02-19] MEDS: ACETAMINOPHEN 325 MG TABLET 650 MG PO ×4 (01:01→20:18)
[2020-02-19] MEDS: SODIUM CHLORIDE 0.9% IV 1,000 ML 85 ML IV CONT (02:14)
[2020-02-19 06:06] LABS: Hematocrit 39.6 % (42.0-52.0); Hemoglobin 12.3 g/dL (14.0-18.0); Mean Corpuscular HGB Conc 31.1 g/dl (32-36); Mean Corpuscular Volume 70.8 fl (80-100); Mean Platelet Volume 9.8 fl (7.4-10.4); Platelet Count Result 177 k/mm3 (150-375); Red Blood Count 5.59 M/mm3 (4.6-6.20); Red Cell Distribution Width 14.6 % (11.5-14.5); White Blood Count 3.1 K/mm3 (4.5-10.0)
[2020-02-19 06:42] LABS: Alanine Aminotransferase 29 U/L (4-50); Albumin Level 3.6 g/dL (3.5-5.1); Alkaline Phosphatase 54 U/L (38-126); Anion Gap 8 mmol/L (8-16); Aspartate Amino Transferase 61 U/L (17-59); Bilirubin,Total 0.5 mg/dL (0.2-1.3); Blood Urea Nitrogen 8 mg/dL (9-20); CRP 5.1 mg/dL (<1.0); Calcium 8.3 mg/dL (8.4-10.2); Carbon Dioxide 26 mmol/L (22-30); Chloride 102 mmol/L (98-107); Estimated CRCL calculation 113 ml/min; Estimated Glomerular Filt Rate > 60; Glucose 99 mg/dL (75-110); Potassium 3.6 mmol/L (3.4-5.0); Sodium 136 mmol/L (137-145)
[2020-02-19 06:49] LABS: Lactate Dehydrogenase 1203 U/L (313-618)
[2020-02-19] MEDS: guaiFENesin 12 HR 600 MG TABCR PO ×2 (08:48→20:18)
--- NOTE | 2020-02-19 12:26 | PM.IMPN ---
Progress Note: A&P Assessment and Plan (1) Sepsis: Code(s): A41.9 - Sepsis, unspecified organism Status: Acute Assessment and Plan: Patient met criteria for sepsis upon admission supported by fever, tachycardia, tachypnea, and elevated lactic acid level. Suspect secondary to viral infection. His lactic acid level normalized following IV fluid rehydration. He has been febrile with T-max of 104.3?. Tachycardia improving. Tachypnea resolved. He is feeling well. Influenza negative. Discontinue IV fluids since he is tolerating PO intake well and COVID positive IV antibiotics have been discontinued as this is most likely viral Blood culture continue to show NGTD. Sputum culture shows normal oropharyngeal jose. Will repeat blood cultures given persistent fevers. Monitor vital signs and electrolytes closely Acetaminophen for fever (2) Fever: Code(s): R50.9 - Fever, unspecified Status: Acute Assessment and Plan: Patient presented with fevers; Tmax 104.3. He continues to have fevers with Tmax 102.8F early this AM. Fevers seem to be responding to Tylenol. Related to sepsis as above. Continue PO acetaminophen as needed for fever. Cannot supplement with ibuprofen or other NSAID due to allergy. Monitor temperature closely Ice packs as needed (3) Pneumonia due to COVID-19 virus: Code(s): U07.1 - COVID-19; J12.89 - Other viral pneumonia Status: Acute Assessment and Plan: Initial CXR concerning for development of infection. He has been febrile. He remains on room air at this time. Repeat CXR today shows mild bibasilar acute airspace disease. Continue isolation precautions At this time, he is not a candidate for dexamethasone as he has no oxygen requirements IV antibiotics have been discontinued as it was highly unlikely is a secondary bacterial pneumonia Supportive care to include antipyretics, expectorants, and bronchodilators Trend acute phase reactants (4) Asthma: Code(s): J45.909 - Unspecified asthma, uncomplicated Status: Chronic Assessment and Plan: Mild. Not in acute exacerbation. Continue bronchodilators as needed Resume home AirDuo inhaler per patient request (5) DVT prophylaxis: Code(s): Z29.9 - Encounter for prophylactic measures, unspecified Status: Acute Assessment and Plan: Patient has refused Lovenox injections. Discussed risk for clotting, especially with COVID-19. He adamantly denies Lovenox or other anticoagulant medications. He reports that he would rather ambulate frequently. He has agreed to SCDs which will be employed. (6) Pleuritic chest pain: Code(s): R07.81 - Pleurodynia Status: Acute Assessment and Plan: The patient is complaining of pleuritic discomfort and noted blood tinged sputum today. Will order chest CTA to r/o PE Subjective Date/time seen: 02/19/20 12:26 Mr. Rivera is a 29 y.o. male with PMH significant for asthma and sickle cell trait who is seen in follow-up for sepsis secondary to COVID-19 pneumonia. He reports that he is having discomfort with deep breathing and cough with blood-tinged sputum. He does feel his heart rate is a bit fast at times and he is still spiking fevers with associated chills. He is not having any chest pain. He feels better overall since admission. He notes mild dyspnea, worse with exertion, but he is maintaining adequate oxygenation on room air. He has no abdominal pain, nausea or vomiting. His appetite is good. He denies dizziness and lightheadedness. Review of Systems Review of Systems: All systems reviewed & are unremarkable except as noted in HPI and below Exam Narrative: Exam Narrative: General: Very pleasant, well-developed, and well-nourished 29 y.o. male lying semi-recumbent in bed in no acute distress. HEENMT: Normocephalic and atraumatic. Sclera anicteric. Conjunctivae without injection or ex
[2020-02-19] MEDS: BENZONATATE 100 MG CAPSULE PO (17:25)
[2020-02-19] MEDS: ALBUTEROL SULFATE NEB 2.5 MG/3 ML INH 1.25 MG INHALATION (20:40)
[2020-02-20] VITALS (19 sets, daily range): BP systolic 117–140; BP diastolic 65–84; PULSE 63–108; RESP 16–22; TEMP 36.3–38.9; O2SAT 69–100
[2020-02-20] MEDS: ACETAMINOPHEN 325 MG TABLET 650 MG PO ×3 (04:55→18:06)
[2020-02-20 06:37] LABS: Basophils Percent Auto 0.2 % (0.2-1.2); Hemoglobin 12.8 g/dL (14.0-18.0); Immature Granulocyte Absolute 0.01 K/mm3 (0.00-0.031); Immature Granulocyte Percent A 0.2 % (0-0.5); Lymphocytes Absolute Auto 0.62 K/mm3 (0.9-3.2); Lymphocytes Percent Auto 10.5 % (18.3-44.2); Mean Corpuscular HGB Conc 31.2 g/dl (32-36); Mean Corpuscular Hemoglobin 21.7 pg (26-34); Mean Corpuscular Volume 69.6 fl (80-100); Monocytes Absolute Auto 0.5 K/mm3 (0.1-0.6); Monocytes Percent Auto 8.3 % (2.6-8.5); Neutrophils Absolute Auto 4.8 K/mm3 (1.3-6.7); Neutrophils Percent Auto 80.8 % (45.5-73.1); Platelet Count Result 205 k/mm3 (150-375); Red Blood Count 5.89 M/mm3 (4.6-6.20); Red Cell Distribution Width 14.6 % (11.5-14.5); White Blood Count 5.9 K/mm3 (4.5-10.0)
[2020-02-20 07:19] LABS: Alanine Aminotransferase 36 U/L (4-50); Alkaline Phosphatase 53 U/L (38-126); Anion Gap 9 mmol/L (8-16); Aspartate Amino Transferase 90 U/L (17-59); Bilirubin,Total 0.6 mg/dL (0.2-1.3); Blood Urea Nitrogen 10 mg/dL (9-20); Calcium 8.9 mg/dL (8.4-10.2); Carbon Dioxide 27 mmol/L (22-30); Chloride 100 mmol/L (98-107); Estimated CRCL calculation 125 ml/min; Estimated Glomerular Filt Rate > 60; Glucose 104 mg/dL (75-110); Lactate Dehydrogenase 1760 U/L (313-618); Magnesium 2.4 mg/dL (1.6-2.3); Sodium 136 mmol/L (137-145)
[2020-02-20 07:46] LABS: CRP 13.3 mg/dL (<1.0)
[2020-02-20 07:57] LABS: Creatine Kinase 11934 U/L (55-170)
[2020-02-20] MEDS: guaiFENesin 12 HR 600 MG TABCR PO ×2 (08:33→21:36)
[2020-02-20] MEDS: BENZONATATE 100 MG CAPSULE PO ×3 (08:33→18:03)
[2020-02-20] MEDS: SODIUM CHLORIDE 0.9% IV 1,000 ML 125 ML IV CONT ×2 (10:46→21:35)
--- NOTE | 2020-02-20 11:58 | PM.CNPUL ---
Assessment and Plan Additional Plan Complicated situation. He has pneumonia with pleuritic pain in the context of COVID positivity -apparent Covid pneumonia. This is in the context of chronic asthma and recent marked increase in CPK; he may have some ongoing myositis but we will follow this for possible evolving rhabdomyolysis. Fortunately oxygenation has been okay. I gently but firmly recommended A/C in the context of COVID positivity and I hope he will reconsider. Rx Solu-Medrol and nebs. Following CPK. History of Present Illness History of Present Illness Consult date: 02/20/20 Chief complaint: Sepsis, pneumonia, PUI COVID Narrative: 29-year-old black male. COVID positive since 02/14/20 but 1st respiratory symptoms 02/11/20. Fortunately he has not been hypoxic. He has had some variable blood-tinged sputum though and has evidence for bilateral infrahilar pneumonic infiltrates on both CXR and CTA. He has received dexamethasone over the last few days ending today - I continued steroids with Solu-Medrol. History of asthma managed with Air duo and p.r.n. albuterol noted. Complaints include greater dyspnea, some increase in cough and slight wheeze as well as hurts to breathe . There was no clot seen on a CTA. I see that prophylactic blood thinners were recommended but he refused Lovenox. Oxygenation has been satisfactory but his fever has persisted. [facility] Past Medical History Medical History (Updated 02/19/20 @ 13:28 by Eileen Quiroz PA-C) Asthma COVID-19 Sickle cell trait Surgical History Surgical History No pertinent past surgical history Family History Family History (Updated 02/14/20 @ 22:43 by Kelly Ho PA-C) Father Sickle cell disease Sibling Sickle cell trait Mother Drug overdose Social History Social History (Updated 02/14/20 @ 22:43 by Kelly Ho PA-C) Social History: The patient lives in [place] with his . He has no children. He works at [employer]. Lifelong nonsmoker. Consumes perhaps 1 alcoholic beverage a week. No illicit substance use. He designates his as his surrogate decision maker and he wishes to be a full code. Gender identity (if verbalized by the patient): Male Sexual Orientation (if Verbalized by the Patient): Straight or Heterosexual Spiritual care concerns: No Meds Home Medications and Allergies Home Medications Medication Instructions Recorded Confirmed Type albuterol sulfate 1 inh INHALATION QID PRN 02/27/19 02/14/20 History fluticasone propion-salmeterol 1 puff INHALATION BID 02/27/19 02/14/20 History [AirDuo RespiClick] Allergies Allergy/AdvReac Type Severity Reaction Status Date / Time dog dander Allergy Unknown Unknown Verified 02/14/20 15:57 ibuprofen Allergy Unknown LIP Verified 02/14/20 15:57 SWELLING aspirin Allergy Swelling Verified 02/14/20 15:57 of Lip/Tongue/Throat Vital Signs Vital Signs - 24 hr 02/19/20 12:00 02/19/20 16:00 02/19/20 20:00 Temperature 37.7 C H 37.6 C 39.5 C H Pulse Rate 99 100 122 H Respiratory Rate 20 20 20 Blood Pressure 120/66 134/75 140/77 Pulse Oximetry 98 94 97 02/19/20 20:18 02/19/20 20:40 02/19/20 21:18 Temperature 39.5 C H 38.9 C H Pulse Rate 104 H Respiratory Rate 22 H Blood Pressure Pulse Oximetry 02/20/20 00:00 02/20/20 04:00 02/20/20 04:55 Temperature 37.4 C 38.9 C H 38.9 C H Pulse Rate 91 108 H Respiratory Rate 22 H 20 Blood Pressure 122/68 140/84 Pulse Oximetry 98 100 02/20/20 05:55 02/20/20 08:00 02/20/20 08:20 Temperature 38.9 C H 36.9 C Pulse Rate 108 H Respiratory Rate 16 Blood Pressure 124/70 Pulse Oximetry 93 95 Exam Narrative: Exam Narrative: He looks nervous. Breathing comfortably. Chest sounds clear. Heart sounds regular. He has some nonfocal tenderness to the mid anterior chest
[2020-02-20] MEDS: methylPREDNISolone SOD SUCC 125 MG VIAL IV PUSH (12:36)
[2020-02-20] MEDS: ALBUTEROL SULFATE NEB 2.5 MG/0.5 ML INH INHALATION ×2 (13:25→19:42)
--- NOTE | 2020-02-20 15:48 | P.PNIM_ITS ---
Progress Note: A&P Assessment and Plan (1) Sepsis: Code(s): A41.9 - Sepsis, unspecified organism Status: Acute Assessment and Plan: Patient met criteria for sepsis upon admission supported by fever, tachycardia, tachypnea, and elevated lactic acid level. Suspect secondary to viral infection. His lactic acid level normalized following IV fluid rehydration. He remains febrile. Tachycardia improving. Tachypnea resolved. He is feeling well. Influenza negative. * IV antibiotics (ceftriaxone and azithromycin resumed 02/19) * Blood culture continue to show NGTD. Sputum culture shows normal oropharyngeal jose. Repeat blood cultures ordered 02/19 given ongoing fevers and pending. * Monitor vital signs and electrolytes closely * Acetaminophen for fever (2) Fever: Code(s): R50.9 - Fever, unspecified Status: Acute Assessment and Plan: Patient presented with fevers; Tmax 104.3. He continues to have fevers with Tmax 102.1F today. Fevers seem to be responding to Tylenol. Related to sepsis as above. * Continue PO acetaminophen as needed for fever. Cannot supplement with ibuprofen or other NSAID due to allergy. * Monitor temperature closely * Ice packs as needed * IV antibiotics added to cover for possible superimposed bacterial infection. This could still be due to COVID-19 viral syndrome. * Consider infectious disease consult if this does not improve with addition of antibiotics given persistence over several days - since 02/13. Pulmonology is also following. * Check urinalysis (3) Pneumonia due to COVID-19 virus: Code(s): U07.1 - COVID-19; J12.89 - Other viral pneumonia Status: Acute Assessment and Plan: Initial CXR concerning for development of infection with progression on repeat C XR and bilateral infiltrates on chest CTA. He has been febrile. He remains on room air at this time. * Continue isolation precautions * Pulmonology was consulted and recommends IV solu-medrol given underlying asthma. * IV antibiotics ceftriaxone and azithromycin resumed today (02/19 - he did receive 2 doses of ceftriaxone and azithromycin 02/14-02/15 - azithromycin day 3/5) given persistent fever and bilateral infiltrates with concern for possible superimposed bacterial infection * Supportive care to include antipyretics, expectorants, and bronchodilators * Trend acute phase reactant. CRP increased today. (4) Elevated CK: Code(s): R74.8 - Abnormal levels of other serum enzymes Status: Acute Assessment and Plan: CK markedly elevated at 11,934 and ordered to monitor acute phase reactants in setting of COVID infection. This may be due to viral myositis. He is not having any myalgias at this time. Renal function is normal so I do not suspect progression to rhabdomyolysis at this time but will need to trend CK and monitor renal function/symptoms closely. * Will gently hydrate with IV normal saline, judicious fluids given positive COVID status * Repeat CK tomorrow, repeat UA, check urine myoglobin (5) Asthma: Code(s): J45.909 - Unspecified asthma, uncomplicated Status: Chronic Assessment and Plan: Mild. Given underlying asthma and concerns regarding whether or not he should be on steroids, pulmonology was consulted. * Continue bronchodilators as needed * Pulmonology consult is appreciated. Pulmonology recommends Solu-medrol. * Continue home AirDuo inhaler (6) DVT prophylaxis: Code(s): Z29.9 - Encounter for prophylactic measures, unspecified
--- NOTE | 2020-02-20 15:48 | PM.IMPN ---
Progress Note: A&P Assessment and Plan (1) Sepsis: Code(s): A41.9 - Sepsis, unspecified organism Status: Acute Assessment and Plan: Patient met criteria for sepsis upon admission supported by fever, tachycardia, tachypnea, and elevated lactic acid level. Suspect secondary to viral infection. His lactic acid level normalized following IV fluid rehydration. He remains febrile. Tachycardia improving. Tachypnea resolved. He is feeling well. Influenza negative. IV antibiotics (ceftriaxone and azithromycin resumed 02/19) Blood culture continue to show NGTD. Sputum culture shows normal oropharyngeal jose. Repeat blood cultures ordered 02/19 given ongoing fevers and pending. Monitor vital signs and electrolytes closely Acetaminophen for fever (2) Fever: Code(s): R50.9 - Fever, unspecified Status: Acute Assessment and Plan: Patient presented with fevers; Tmax 104.3. He continues to have fevers with Tmax 102.1F today. Fevers seem to be responding to Tylenol. Related to sepsis as above. Continue PO acetaminophen as needed for fever. Cannot supplement with ibuprofen or other NSAID due to allergy. Monitor temperature closely Ice packs as needed IV antibiotics added to cover for possible superimposed bacterial infection. This could still be due to COVID-19 viral syndrome. Consider infectious disease consult if this does not improve with addition of antibiotics given persistence over several days - since 02/13. Pulmonology is also following. Check urinalysis (3) Pneumonia due to COVID-19 virus: Code(s): U07.1 - COVID-19; J12.89 - Other viral pneumonia Status: Acute Assessment and Plan: Initial CXR concerning for development of infection with progression on repeat CXR and bilateral infiltrates on chest CTA. He has been febrile. He remains on room air at this time. Continue isolation precautions Pulmonology was consulted and recommends IV solu-medrol given underlying asthma. IV antibiotics ceftriaxone and azithromycin resumed today (02/19 - he did receive 2 doses of ceftriaxone and azithromycin 02/14-02/15 - azithromycin day 3/5) given persistent fever and bilateral infiltrates with concern for possible superimposed bacterial infection Supportive care to include antipyretics, expectorants, and bronchodilators Trend acute phase reactant. CRP increased today. (4) Elevated CK: Code(s): R74.8 - Abnormal levels of other serum enzymes Status: Acute Assessment and Plan: CK markedly elevated at 11,934 and ordered to monitor acute phase reactants in setting of COVID infection. This may be due to viral myositis. He is not having any myalgias at this time. Renal function is normal so I do not suspect progression to rhabdomyolysis at this time but will need to trend CK and monitor renal function/symptoms closely. Will gently hydrate with IV normal saline, judicious fluids given positive COVID status Repeat CK tomorrow, repeat UA, check urine myoglobin (5) Asthma: Code(s): J45.909 - Unspecified asthma, uncomplicated Status: Chronic Assessment and Plan: Mild. Given underlying asthma and concerns regarding whether or not he should be on steroids, pulmonology was consulted. Continue bronchodilators as needed Pulmonology consult is appreciated. Pulmonology recommends Solu-medrol. Continue home AirDuo inhaler (6) DVT prophylaxis: Code(s): Z29.9 - Encounter for prophylactic measures, unspecified Status: Acute Assessment and Plan: Patient has refused Lovenox injections. Risks of clotting, especially with COVID-19, were discussed. He adamantly denied lovenox until today (02/19). He is now agreeable. Initiate lovenox Continue SCDs (7) Pleuritic chest pain: Code(s): R07.81 - Pleurodynia Status: Resolved Assessment and Plan: Resolved. Chest CTA negative for PE.
[2020-02-20 19:11] LABS: Add Urine Microscopic? YES; Appearance Urine Clear (Clear); Bilirubin Urine Negative (Negative); Blood Urine 2+ (Negative); Color Urine Yellow (Yellow); Glucose Urine UA Negative (Negative); Ketones Urine Trace mg/dL (Negative); Leukocyte Esterase Ur Negative LEU/UL (Negative); Mucus Urine Rare /lpf; Nitrate Urine Negative (Negative); Protein Urine 2+ mg/dL (Negative); RBC Urine 0-2 /hpf (0-2); Specific Grav Ur 1.018 (1.001-1.035); Urobilinogen Urine Negative mg/dL (<2.0); WBC Urine 0-3 /hpf
[2020-02-20] MEDS: methylPREDNISolone SOD SUCC 40 MG VIAL IV PUSH (21:36)
[2020-02-20] MEDS: ENOXAPARIN 40 MG/0.4 ML SYRINGE SUB-Q (21:36)
[2020-02-21] VITALS (18 sets, daily range): BP systolic 126–148; BP diastolic 65–80; PULSE 74–115; RESP 18–22; TEMP 36.6–37; O2SAT 92–99
[2020-02-21] MEDS: ALBUTEROL SULFATE NEB 2.5 MG/0.5 ML INH INHALATION ×4 (02:20→19:42)
[2020-02-21] MEDS: methylPREDNISolone SOD SUCC 40 MG VIAL IV PUSH ×3 (06:20→21:53)
[2020-02-21 07:06] LABS: Hematocrit 44.1 % (42.0-52.0); Immature Granulocyte Absolute 0.01 K/mm3 (0.00-0.031); Immature Granulocyte Percent A 0.4 % (0-0.5); Lymphocytes Absolute Auto 0.42 K/mm3 (0.9-3.2); Lymphocytes Percent Auto 18.1 % (18.3-44.2); Mean Corpuscular HGB Conc 31.7 g/dl (32-36); Mean Corpuscular Hemoglobin 22.4 pg (26-34); Mean Corpuscular Volume 70.6 fl (80-100); Mean Platelet Volume 9.1 fl (7.4-10.4); Monocytes Absolute Auto 0.3 K/mm3 (0.1-0.6); Monocytes Percent Auto 12.1 % (2.6-8.5); Neutrophils Absolute Auto 1.6 K/mm3 (1.3-6.7); Neutrophils Percent Auto 69.4 % (45.5-73.1); Platelet Count Result 266 k/mm3 (150-375); Red Blood Count 6.25 M/mm3 (4.6-6.20); Red Cell Distribution Width 15.5 % (11.5-14.5); White Blood Count 2.3 K/mm3 (4.5-10.0)
[2020-02-21 07:29] LABS: Alanine Aminotransferase 44 U/L (4-50); Albumin Level 4.3 g/dL (3.5-5.1); Alkaline Phosphatase 59 U/L (38-126); Anion Gap 11 mmol/L (8-16); Aspartate Amino Transferase 88 U/L (17-59); Bilirubin,Total 0.6 mg/dL (0.2-1.3); Blood Urea Nitrogen 11 mg/dL (9-20); Calcium 9.3 mg/dL (8.4-10.2); Carbon Dioxide 27 mmol/L (22-30); Chloride 103 mmol/L (98-107); Estimated CRCL calculation 139 ml/min; Estimated Glomerular Filt Rate > 60; Glucose 139 mg/dL (75-110); Lactate Dehydrogenase 1364 U/L (313-618); Magnesium 2.6 mg/dL (1.6-2.3); Potassium 3.9 mmol/L (3.4-5.0); Sodium 141 mmol/L (137-145)
[2020-02-21 07:51] LABS: Creatine Kinase 9266 U/L (55-170)
[2020-02-21 07:56] LABS: Anisocytosis 1+ (NORMAL); Crenated RBC 1+ (NORMAL); Platelet Estimate Adequate (Adequate)
[2020-02-21 08:06] LABS: CRP 11.9 mg/dL (<1.0)
[2020-02-21] MEDS: ENOXAPARIN 40 MG/0.4 ML SYRINGE SUB-Q ×2 (08:26→21:51)
[2020-02-21] MEDS: BENZONATATE 100 MG CAPSULE PO ×2 (08:26→13:20)
[2020-02-21] MEDS: guaiFENesin 12 HR 600 MG TABCR PO (08:27)
--- NOTE | 2020-02-21 08:43 | PM.PNPUL ---
Progress Note: A&P Additional Plan Stable. Continue Rx and careful oxygenation monitoring. Subjective Date/time seen: 02/21/20 08:43 Comfortable. Receiving nebs. Did agree to Lovenox following our talk yesterday. Exam Narrative: Exam Narrative: Looks comfortable. Chest sounds clear. Heart sounds regular. No neck adenopathy. Objective Data Vital Signs Vital Signs: Vital Signs - 24 hr 02/20/20 12:00 02/20/20 12:42 02/20/20 13:25 Temperature 37.8 C H 38.3 C H Pulse Rate 104 H 98 Respiratory Rate 16 20 Blood Pressure 117/67 Pulse Oximetry 96 02/20/20 13:35 02/20/20 13:42 02/20/20 16:00 Temperature 38.4 C H 37.9 C H Pulse Rate 96 98 Respiratory Rate 20 18 Blood Pressure 121/71 Pulse Oximetry 98 02/20/20 18:06 02/20/20 19:06 02/20/20 19:45 Temperature 37.7 C H 37.7 C H Pulse Rate 88 Respiratory Rate 20 Blood Pressure Pulse Oximetry 93 02/20/20 20:00 02/20/20 20:04 02/20/20 20:20 Temperature 36.3 C L Pulse Rate 86 85 63 Respiratory Rate 18 20 16 Blood Pressure 117/68 Pulse Oximetry 69 L 97 02/20/20 23:49 02/21/20 02:25 02/21/20 02:38 Temperature 36.3 C L Pulse Rate 63 77 74 Respiratory Rate 16 20 22 H Blood Pressure 133/65 Pulse Oximetry 97 92 02/21/20 03:07 02/21/20 03:24 02/21/20 04:00 Temperature 36.8 C Pulse Rate 96 Respiratory Rate 19 Blood Pressure 138/72 Pulse Oximetry 97 94 98 02/21/20 07:33 02/21/20 07:50 02/21/20 08:00 Temperature 36.6 C Pulse Rate 92 92 97 Respiratory Rate 20 20 20 Blood Pressure 148/70 H Pulse Oximetry 96 98 02/21/20 08:05 Temperature Pulse Rate Respiratory Rate Blood Pressure Pulse Oximetry 96 Intake/Output Intake/Output: Intake & Output 02/18/20 02/19/20 02/20/20 02/21/20 23:59 23:59 23:59 23:59 Intake Total 2990 1940 2410 300 Output Total 1050 300 350 300 Balance 1940 1640 2060 0 Meds/Results Medications: Active Medications Generic Name Dose Route Start Last Admin Trade Name Freq PRN Reason Stop Dose Admin Acetaminophen 650 mg 02/14/20 22:48 02/20/20 18:06 Acetaminophen 325 Mg Tablet PO 650 mg Q4H PRN Administration Mild Pain (1-3) or Fever Albuterol 2 puff 02/14/20 14:21 Albuterol Sulfate (*Sp) Aerosol 1 Puff INHALATION Q6HRT PRN Shortness Of Breath Albuterol 2.5 mg 02/20/20 11:47 Albuterol Sulfate Neb 2.5 Mg/0.5 Ml Inh INHALATION Q4HRT PRN Shortness Of Breath Albuterol 2.5 mg 02/20/20 20:00 02/21/20 07:28 Albuterol Sulfate Neb 2.5 Mg/0.5 Ml Inh INHALATION 2.5 mg Q6HRT RIANNA Administration Benzonatate 100 mg 02/19/20 17:00 02/21/20 08:26 Benzonatate 100 Mg Capsule PO 100 mg TID RIANNA Administration Enoxaparin Sodium 40 mg 02/20/20 21:00 02/21/20 08:26 Enoxaparin 40 Mg/0.4 Ml Syringe SUB-Q 40 mg Q12HR RIANNA Administration Guaifenesin 600 mg 02/15/20 09:00 02/21/20 08:27 Guaifenesin 12 Hr 600 Mg Tabcr PO 600 mg Q12HR RIANNA Administration Ceftriaxone Sodium/Dextrose 1 gm in 50 mls @ 100 mls/hr 02/20/20 08:00 02/21/20 08:25 Rocephin 1 Gm/D5w 50 Ml IVPB 100 mls/hr Q24H RIANNA Administration Azithromycin 500 mg in 250 mls @ 250 mls/hr 02/20/20 09:00 02/21/20 08:25 Zithromax IVPB 02/23/20 09:01 250 mls/hr Q24H RIANNA Administration Sodium Chloride 1,000 mls @ 125 mls/hr 02/20/20 10:35 02/21/20 06:15 Normal Saline Iv IV CONT 125 mls/hr .Q8H RIANNA Infusion Levalbuterol HCl 2 puff 02/14/20 15:25 02/19/20 16:00 Levalbuterol Hfa (*Sp) 15 Gm Inhaler INHALATION 2 puff Q6HRT PRN Administration Shortness Of Breath Methylprednisolone Sodium Succinate 40 mg 02/20/20 22:00 02/21/20 06:20 Methylprednisolone Sod Succ 40 Mg Vial IV PUSH 40 mg Q8HR RIANNA Administration Radiology Results: ITS Impressions Chest X-Ray 02/17/20 09:21 IMPRESSION: Mild bibasilar acute airspace disease, mild interval progression. Chest CTA 02/19/20 15
--- NOTE | 2020-02-21 10:28 | PCDIET ---
Weekly nutritional screen. Patient is tolerating current diet , regular which is appropriate, with adequate intake, 78% average over last four meals. No weight loss reported. No nutritional needs at this time.
--- NOTE | 2020-02-21 14:48 | P.PNIM_ITS ---
Progress Note: A&P Assessment and Plan (1) Sepsis: Code(s): A41.9 - Sepsis, unspecified organism Status: Acute Assessment and Plan: Patient met criteria for sepsis upon admission supported by fever, tachycardia, tachypnea, and elevated lactic acid level. Suspect secondary to viral infection. His lactic acid level normalized following IV fluid rehydration. remains febrile. Tachycardia improving, except with coughing fits. HR 100 and 104 this afternoon. Tachypnea resolved. Influenza negative. * IV antibiotics (ceftriaxone and azithromycin resumed 02/19) * Agree with pulmonology continuing his IV Solu-Medrol dosing every 8 hours. * Started patient on IV Remdesivir due to the required O2, persistent viral s/s, and worsening CXR. * Tylenol with Codeine PRN for cough. * Continue Mucinex, Tessalon doses increased, added DuoNebs to Albuterol Nebs. * Consider adding Spiriva Inhaler if not better tomorrow. * Blood culture continue to show NGTD. Sputum culture shows normal oropharyngeal jose. Repeat blood cultures ordered 02/19 given ongoing fevers and pending. * Monitor vital signs and electrolytes closely * Acetaminophen for fever (2) Fever: Code(s): R50.9 - Fever, unspecified Status: Acute Assessment and Plan: Patient presented with fevers on 02/13 and fevers have persisted through yesterday evening. Last 24 hours Tmax 37.7 last evening around 7-8pm treating with oral Tylenol high fevers for the last 6-7 days. Related to Viral COVID infection and /or Sickle Cell Crisis. * Continue PO acetaminophen as needed for fever. Cannot supplement with ibuprofen or other NSAID due to allergy. * Monitor temperature closely * Ice packs as needed * Started patient on IV Remdesivir due to the required O2, persistent viral s/s, and worsening CXR. * IV antibiotics added to cover for possible superimposed bacterial infection. This could still be due to COVID-19 viral syndrome. * Discussed with infectious disease provider. Consider consult if fevers not improved with addition of antibiotics and IV Remdesivir. * Appreciate Pulmonology is also following. * Repeat UA on 02/09. UA yesterday was clear. (3) Pneumonia due to COVID-19 virus: Code(s): U07.1 - COVID-19; J12.89 - Other viral pneumonia Status: Acute Assessment and Plan: Initial CXR concerning for development of infection with progression on repeat CXR and bilateral infiltrates on chest CTA. repeated CXR today. results pending. been febrile. * Continue isolation precautions * Pulmonology was consulted. Continue Q 8 H IV solu-medrol given underlying asthma. * Maximize inhalers. Start Spiriva if not improved tomorrow. * IV antibiotics ceftriaxone and azithromycin resumed (02/19 - he did receive 2 doses of ceftriaxone and azithromycin 02/14-02/15 - azithromycin day 04/25) given persistent fever and bilateral infiltrates with concern for possible superimposed bacterial infection * Supportive care to include antipyretics, expectorants, and bronchodilators * Trend acute phase reactant. CRP increased today. * CRP improved from 13.3 to 11.9, Tot Creat [place] 10792 to 9266. LDH improved from 1760 to 1364. * Ferritin increased from 173 to 197. LFTs stable and WNL. * WBC dropped from 5.9 to 2.3. (4) Elevated CK: Code(s): R74.8 - Abnormal levels of other serum enzymes Status: Acute Assessment and Plan: CK markedly elevated at 11,934 improved to 9266 today. Markers for acute phase reactants in setting of COVID infection were all positive and significantly elevated. This may be due to v
--- NOTE | 2020-02-21 14:48 | PM.IMPN ---
Progress Note: A&P Assessment and Plan (1) Sepsis: Code(s): A41.9 - Sepsis, unspecified organism Status: Acute Assessment and Plan: Patient met criteria for sepsis upon admission supported by fever, tachycardia, tachypnea, and elevated lactic acid level. Suspect secondary to viral infection. His lactic acid level normalized following IV fluid rehydration. remains febrile. Tachycardia improving, except with coughing fits. HR 100 and 104 this afternoon. Tachypnea resolved. Influenza negative. IV antibiotics (ceftriaxone and azithromycin resumed 02/19) Agree with pulmonology continuing his IV Solu-Medrol dosing every 8 hours. Started patient on IV Remdesivir due to the required O2, persistent viral s/s, and worsening CXR. Tylenol with Codeine PRN for cough. Continue Mucinex, Tessalon doses increased, added DuoNebs to Albuterol Nebs. Consider adding Spiriva Inhaler if not better tomorrow. Blood culture continue to show NGTD. Sputum culture shows normal oropharyngeal jose. Repeat blood cultures ordered 02/19 given ongoing fevers and pending. Monitor vital signs and electrolytes closely Acetaminophen for fever (2) Fever: Code(s): R50.9 - Fever, unspecified Status: Acute Assessment and Plan: Patient presented with fevers on 02/13 and fevers have persisted through yesterday evening. Last 24 hours Tmax 37.7 last evening around 7-8pm treating with oral Tylenol high fevers for the last 6-7 days. Related to Viral COVID infection and /or Sickle Cell Crisis. Continue PO acetaminophen as needed for fever. Cannot supplement with ibuprofen or other NSAID due to allergy. Monitor temperature closely Ice packs as needed Started patient on IV Remdesivir due to the required O2, persistent viral s/s, and worsening CXR. IV antibiotics added to cover for possible superimposed bacterial infection. This could still be due to COVID-19 viral syndrome. Discussed with infectious disease provider. Consider consult if fevers not improved with addition of antibiotics and IV Remdesivir. Appreciate Pulmonology is also following. Repeat UA on 02/09. UA yesterday was clear. (3) Pneumonia due to COVID-19 virus: Code(s): U07.1 - COVID-19; J12.89 - Other viral pneumonia Status: Acute Assessment and Plan: Initial CXR concerning for development of infection with progression on repeat CXR and bilateral infiltrates on chest CTA. repeated CXR today. results pending. been febrile. Continue isolation precautions Pulmonology was consulted. Continue Q 8 H IV solu-medrol given underlying asthma. Maximize inhalers. Start Spiriva if not improved tomorrow. IV antibiotics ceftriaxone and azithromycin resumed (02/19 - he did receive 2 doses of ceftriaxone and azithromycin 02/14-02/15 - azithromycin day 3/) given persistent fever and bilateral infiltrates with concern for possible superimposed bacterial infection Supportive care to include antipyretics, expectorants, and bronchodilators Trend acute phase reactant. CRP increased today. CRP improved from 13.3 to 11.9, Tot Creat [place] 09[address] to 9266. LDH improved from 1760 to 1364. Ferritin increased from 173 to 197. LFTs stable and WNL. WBC dropped from 5.9 to 2.3. (4) Elevated CK: Code(s): R74.8 - Abnormal levels of other serum enzymes Status: Acute Assessment and Plan: CK markedly elevated at 11,934 improved to 9266 today. Markers for acute phase reactants in setting of COVID infection were all positive and significantly elevated. This may be due to viral myositis. Renal function is normal so I do not suspect progression to rhabdomyolysis at this time but will need to trend CK and monitor renal function/symptoms closely. Was gently hydrated with IV normal saline, stopped IVFs today, CXR slightly wet. Encouraged patient to improve his own oral hydration. Repeat UA was clear. Checking urine myoglobin (5
[2020-02-21 15:38] LABS: Alanine Aminotransferase 42 U/L (4-50)
[2020-02-21] MEDS: REMDESIVIR 200 MG/NS 250 ML 200 MG/250 ML BAG 250 MG IVPB (15:49)
[2020-02-21] MEDS: BENZONATATE 100 MG CAPSULE 200 MG PO (17:21)
[2020-02-21] MEDS: IPRATROPIUM BR 0.02% INH SOLN 0.5 MG/2.5 ML VIAL INHALATION (19:42)
[2020-02-21] MEDS: guaiFENesin 12 HR 600 MG TABCR 1200 MG PO (21:53)
[2020-02-22] VITALS (13 sets, daily range): BP systolic 124–138; BP diastolic 73–88; PULSE 74–94; RESP 16–20; TEMP 36.6–37.1; O2SAT 95–98
[2020-02-22] MEDS: ALBUTEROL SULFATE NEB 2.5 MG/0.5 ML INH INHALATION ×4 (01:42→22:47)
[2020-02-22] MEDS: IPRATROPIUM BR 0.02% INH SOLN 0.5 MG/2.5 ML VIAL INHALATION ×4 (01:42→22:48)
[2020-02-22 06:09] LABS: Hematocrit 38.6 % (42.0-52.0); Immature Granulocyte Absolute 0.05 K/mm3 (0.00-0.031); Immature Granulocyte Percent A 0.7 % (0-0.5); Lymphocytes Percent Auto 11.4 % (18.3-44.2); Mean Corpuscular HGB Conc 31.1 g/dl (32-36); Mean Corpuscular Hemoglobin 22.5 pg (26-34); Mean Corpuscular Volume 72.4 fl (80-100); Mean Platelet Volume 9.4 fl (7.4-10.4); Monocytes Absolute Auto 0.7 K/mm3 (0.1-0.6); Monocytes Percent Auto 10.3 % (2.6-8.5); Neutrophils Absolute Auto 5.5 K/mm3 (1.3-6.7); Neutrophils Percent Auto 77.6 % (45.5-73.1); Platelet Count Result 317 k/mm3 (150-375); Red Blood Count 5.33 M/mm3 (4.6-6.20); Red Cell Distribution Width 15.2 % (11.5-14.5)
[2020-02-22 06:28] LABS: Alanine Aminotransferase 54 U/L (4-50); Albumin Level 3.6 g/dL (3.5-5.1); Alkaline Phosphatase 69 U/L (38-126); Anion Gap 7 mmol/L (8-16); Aspartate Amino Transferase 78 U/L (17-59); Bilirubin,Total 0.4 mg/dL (0.2-1.3); Blood Urea Nitrogen 14 mg/dL (9-20); CRP 4.6 mg/dL (<1.0); Calcium 8.9 mg/dL (8.4-10.2); Carbon Dioxide 28 mmol/L (22-30); Chloride 106 mmol/L (98-107); Estimated CRCL calculation 139 ml/min; Estimated Glomerular Filt Rate > 60; Glucose 144 mg/dL (75-110); Potassium 4.1 mmol/L (3.4-5.0); Sodium 141 mmol/L (137-145)
[2020-02-22 06:50] LABS: Lactate Dehydrogenase 895 U/L (313-618)
[2020-02-22 06:54] LABS: Burr Cells 1+ (NORMAL); Ovalocytes 1+ (NORMAL); Platelet Estimate Adequate (Adequate)
[2020-02-22] MEDS: methylPREDNISolone SOD SUCC 40 MG VIAL IV PUSH ×3 (06:58→22:12)
[2020-02-22 07:00] LABS: Creatine Kinase 5370 U/L (55-170)
[2020-02-22 08:01] LABS: CRP 4.6 mg/dL (<1.0)
[2020-02-22] MEDS: guaiFENesin 12 HR 600 MG TABCR 1200 MG PO ×2 (09:22→22:12)
[2020-02-22] MEDS: ENOXAPARIN 40 MG/0.4 ML SYRINGE SUB-Q ×2 (09:22→22:13)
[2020-02-22] MEDS: BENZONATATE 100 MG CAPSULE 200 MG PO ×3 (09:23→17:54)
--- NOTE | 2020-02-22 10:11 | PM.PNPUL ---
Progress Note: A&P Additional Plan Clinically doing very well. Note his CPK has improved from 11,005 1000 and he is now on ambient air! Hope home once remdesivir done. Time Spent With Patient Time with patient: 25 - 35 minutes Subjective Date/time seen: Doing well. O2 weaned to ambient air. On remdesivir. 02/22/20 10:11 Exam Narrative: Exam Narrative: Chest clear-heart regular. No neck adenopathy. Objective Data Vital Signs Vital Signs: Vital Signs - 24 hr 02/21/20 12:00 02/21/20 14:08 02/21/20 14:17 Temperature 36.6 C Pulse Rate 95 104 H 100 Respiratory Rate 20 20 20 Blood Pressure 134/78 Pulse Oximetry 92 02/21/20 16:00 02/21/20 18:55 02/21/20 18:56 Temperature 36.7 C 36.6 C Pulse Rate 94 92 115 H Respiratory Rate 20 20 20 Blood Pressure 134/74 131/67 140/80 Pulse Oximetry 97 99 98 02/21/20 19:45 02/21/20 19:53 02/21/20 20:00 Temperature 37.0 C Pulse Rate 75 80 97 Respiratory Rate 20 20 18 Blood Pressure 134/72 Pulse Oximetry 96 97 02/22/20 00:00 02/22/20 01:42 02/22/20 01:52 Temperature 36.9 C Pulse Rate 81 79 82 Respiratory Rate 18 20 20 Blood Pressure 124/73 Pulse Oximetry 96 02/22/20 04:00 02/22/20 07:58 02/22/20 08:00 Temperature 36.9 C 36.6 C Pulse Rate 94 85 83 Respiratory Rate 18 20 18 Blood Pressure 137/88 138/81 Pulse Oximetry 97 96 Intake/Output Intake/Output: Intake & Output 02/19/20 02/20/20 02/21/20 02/22/20 23:59 23:59 23:59 23:59 Intake Total 1940 2410 1820 550 Output Total 300 350 625 Balance 1640 2060 1195 550 Meds/Results Medications: Active Medications Generic Name Dose Route Start Last Admin Trade Name Freq PRN Reason Stop Dose Admin Acetaminophen 650 mg 02/14/20 22:48 02/20/20 18:06 Acetaminophen 325 Mg Tablet PO 650 mg Q4H PRN Administration Mild Pain (1-3) or Fever Acetaminophen/Codeine Phosphate 5 ml 12/31/20 14:07 Acetaminophen/Codeine Elixir (*Crx) 120-12 Mg/5 Ml Udc PO Q4H PRN Cough Albuterol 2 puff 02/14/20 14:21 Albuterol Sulfate (*Sp) Aerosol 1 Puff INHALATION Q6HRT PRN Shortness Of Breath Albuterol 2.5 mg 02/20/20 11:47 Albuterol Sulfate Neb 2.5 Mg/0.5 Ml Inh INHALATION Q4HRT PRN Shortness Of Breath Albuterol 2.5 mg 02/20/20 20:00 02/22/20 07:57 Albuterol Sulfate Neb 2.5 Mg/0.5 Ml Inh INHALATION 2.5 mg Q6HRT RIANNA Administration Benzonatate 200 mg 02/21/20 17:00 02/22/20 09:23 Benzonatate 100 Mg Capsule PO 200 mg TID RIANNA Administration Enoxaparin Sodium 40 mg 02/20/20 21:00 02/22/20 09:22 Enoxaparin 40 Mg/0.4 Ml Syringe SUB-Q 40 mg Q12HR RIANNA Administration Guaifenesin 1,200 mg 02/21/20 21:00 02/22/20 09:22 Guaifenesin 12 Hr 600 Mg Tabcr PO 1,200 mg Q12HR RIANNA Administration Ceftriaxone Sodium/Dextrose 1 gm in 50 mls @ 100 mls/hr 02/20/20 08:00 02/22/20 09:48 Rocephin 1 Gm/D5w 50 Ml IVPB Infused Q24H RIANNA Infusion Azithromycin 500 mg in 250 mls @ 250 mls/hr 02/20/20 09:00 02/22/20 10:01 Zithromax IVPB 02/23/20 09:01 250 mls/hr Q24H RIANNA Administration Remdesivir 100 mg in 250 mls @ 250 mls/hr 02/22/20 10:00 IVPB 02/25/20 10:59 Q24H RIANNA Ipratropium [place] 0.5 mg 02/21/20 20:00 02/22/20 07:57 Ipratropium Br 0.02% Inh Soln 0.5 Mg/2.5 Ml Vial INHALATION 0.5 mg Q6HRT RIANNA Administration Methylprednisolone Sodium Succinate 40 mg 02/20/20 22:00 02/22/20 06:58 Methylprednisolone Sod Succ 40 Mg Vial IV PUSH 40 mg Q8HR RIANNA Administration Radiology Results: ITS Impressions Chest CTA 02/19/20 15:42 IMPRESSION: Bilateral pneumonia with probable mild bilateral hilar and mediastinal reactive lymph node prominence No evidence of pulmonary embolism Chest X-Ray 02/21/20 18:09 IMPRESSION: 1. Patchy bilateral airspace opacities, with slight worsening in the left lung base, consistent with COVID 19 pneumonia. Labs Labs: Labor
[2020-02-22] MEDS: REMDESIVIR 100 MG/NS 250 ML 100 MG/250 ML BAG 250 MG IVPB (11:42)
--- NOTE | 2020-02-22 13:28 | P.PNIM_ITS ---
Progress Note: A&P Assessment and Plan (1) Sepsis: Code(s): A41.9 - Sepsis, unspecified organism Status: Acute Assessment and Plan: RESOLVED. Patient met criteria for sepsis upon admission supported by fever, tachycardia, tachypnea, and elevated lactic acid level. Suspect secondary to viral infection. His lactic acid level normalized following IV fluid rehydration. Now remaining febrile. Tachycardia resolved. HR 70-90s Tachypnea resolved. RR 18-20. Influenza negative. Covid + on . * IV antibiotics (ceftriaxone and azithromycin resumed 02/19) * continued his IV Solu-Medrol dosing every 8 hours, should likely wean to Daily Dexamethasone tomorrow (Pulmonology). * Tylenol with Codeine PRN for cough. * Continue Mucinex, Tessalon doses increased, added DuoNebs to Albuterol Nebs. * Blood culture continue to show NGTD. Sputum culture shows normal oropharyngeal jose. Repeat blood cultures ordered 02/19 given ongoing fevers and pending. * PRN Acetaminophen for fever * likely come off isolation on TuesdayFeb.23 or . * Ordered PT to work with patient using therapyband and weights to preserve muscle tone. * Continue IV Remdesivir and complete therapy on Tuesday, Feb.24 * Goal: discharge Feb.24 with rest of 10 day steroid course. (2) Fever: Code(s): R50.9 - Fever, unspecified Status: Acute Assessment and Plan: Patient presented with fevers on 02/13 and fevers have persisted through Last 24 hours Tmax 37.7 around 7-8pm treating with oral Tylenol high fevers for 6-7 days. Related to Viral COVID infection, does not appear to be Sickle Cell Crisis related at this time. * Influenza negative. Covid + on . * Repeat UA: 02/09 and 02/20. UA of 02/20 was clear. * None for the last 48 hours. * IV antibiotics (ceftriaxone and azithromycin resumed 02/19) * Tylenol with Codeine PRN for cough. * Blood culture continue to show NGTD. Sputum culture shows normal oropharyngeal jose. Repeat blood cultures ordered 02/19 given ongoing fevers and pending. * PRN Acetaminophen for fever * likely come off isolation on TuesdayFeb.23 or . * Continue IV Remdesivir and complete therapy on Feb.24 (3) Pneumonia due to COVID-19 virus: Code(s): U07.1 - COVID-19; J12.89 - Other viral pneumonia Status: Acute Assessment and Plan: Initial CXR concerning for development of infection with progression on repeat CXR and bilateral infiltrates on chest CTA. repeated CXR today. results pending. been febrile. * Continue isolation precautions * IV antibiotics (ceftriaxone and azithromycin resumed 02/19) * continued his IV Solu-Medrol dosing every 8 hours, should likely wean to Daily Dexamethasone tomorrow (Pulmonology). * Tylenol with Codeine PRN for cough. * Continue Mucinex, Tessalon doses increased, added DuoNebs to Albuterol Nebs. * Blood culture continue to show NGTD. Sputum culture shows normal oropharyngeal jose. Repeat blood cultures ordered 02/19 given ongoing fevers and pending. * PRN Acetaminophen for fever * likely come off isolation on TuesdayFeb.23 or . * Ordered PT to work with patient using therapyband and weights to preserve mu scle tone. * Continue IV Remdesivir and complete therapy on Tuesday, Feb. * Monitor LFTs, only mildly elevated today - stable. * Trending Reactant Labs: Total CK now much improved at 5370, WBC improved from 2.3 to 7.0, Ferritin stable at 170 WNL. LDH improved at 895. CRP improved to 4.6. LFTs stable and WNL. (4) Elevated CK: Code(s): R74.8 - Abnormal levels of other serum enzymes Sta
--- NOTE | 2020-02-22 13:28 | PM.IMPN ---
Progress Note: A&P Assessment and Plan (1) Sepsis: Code(s): A41.9 - Sepsis, unspecified organism Status: Acute Assessment and Plan: RESOLVED. Patient met criteria for sepsis upon admission supported by fever, tachycardia, tachypnea, and elevated lactic acid level. Suspect secondary to viral infection. His lactic acid level normalized following IV fluid rehydration. Now remaining febrile. Tachycardia resolved. HR 70-90s Tachypnea resolved. RR 18-20. Influenza negative. Covid + on . IV antibiotics (ceftriaxone and azithromycin resumed 02/19) continued his IV Solu-Medrol dosing every 8 hours, should likely wean to Daily Dexamethasone tomorrow (Pulmonology). Tylenol with Codeine PRN for cough. Continue Mucinex, Tessalon doses increased, added DuoNebs to Albuterol Nebs. Blood culture continue to show NGTD. Sputum culture shows normal oropharyngeal jose. Repeat blood cultures ordered 02/19 given ongoing fevers and pending. PRN Acetaminophen for fever likely come off isolation on TuesdayFeb.23 or . Ordered PT to work with patient using therapyband and weights to preserve muscle tone. Continue IV Remdesivir and complete therapy on Feb.24 Goal: discharge Feb.24 with rest of 10 day steroid course. (2) Fever: Code(s): R50.9 - Fever, unspecified Status: Acute Assessment and Plan: Patient presented with fevers on 02/13 and fevers have persisted through Last 24 hours Tmax 37.7 around 7-8pm treating with oral Tylenol high fevers for 6-7 days. Related to Viral COVID infection, does not appear to be Sickle Cell Crisis related at this time. Influenza negative. Covid + on . Repeat UA: 02/09 and 02/20. UA of 02/20 was clear. None for the last 48 hours. IV antibiotics (ceftriaxone and azithromycin resumed 02/19) Tylenol with Codeine PRN for cough. Blood culture continue to show NGTD. Sputum culture shows normal oropharyngeal jose. Repeat blood cultures ordered 02/19 given ongoing fevers and pending. PRN Acetaminophen for fever likely come off isolation on TuesdayFeb.23 or . Continue IV Remdesivir and complete therapy on Feb.24 (3) Pneumonia due to COVID-19 virus: Code(s): U07.1 - COVID-19; J12.89 - Other viral pneumonia Status: Acute Assessment and Plan: Initial CXR concerning for development of infection with progression on repeat CXR and bilateral infiltrates on chest CTA. repeated CXR today. results pending. been febrile. Continue isolation precautions IV antibiotics (ceftriaxone and azithromycin resumed 02/19) continued his IV Solu-Medrol dosing every 8 hours, should likely wean to Daily Dexamethasone tomorrow (Pulmonology). Tylenol with Codeine PRN for cough. Continue Mucinex, Tessalon doses increased, added DuoNebs to Albuterol Nebs. Blood culture continue to show NGTD. Sputum culture shows normal oropharyngeal jose. Repeat blood cultures ordered 02/19 given ongoing fevers and pending. PRN Acetaminophen for fever likely come off isolation on TuesdayFeb.23 or . Ordered PT to work with patient using therapyband and weights to preserve muscle tone. Continue IV Remdesivir and complete therapy on Tuesday, Feb.24 Monitor LFTs, only mildly elevated today - stable. Trending Reactant Labs: Total CK now much improved at 5370, WBC improved from 2.3 to 7.0, Ferritin stable at 170 WNL. LDH improved at 895. CRP improved to 4.6. LFTs stable and WNL. (4) Elevated CK: Code(s): R74.8 - Abnormal levels of other serum enzymes Status: Acute Assessment and Plan: IMPROVED. Markers for acute phase reactants in setting of COVID infection were all positive and significantly elevated. This may be due to viral myositis. Renal function is normal so I do not suspect progression to rhabdomyolysis at this time but will need to trend CK and monitor renal function/symptoms closely. Was paxton
[2020-02-23] VITALS (10 sets, daily range): BP systolic 129–153; BP diastolic 69–94; PULSE 80–122; RESP 16–20; TEMP 36.3–37.4; O2SAT 93–99
[2020-02-23] MEDS: ALBUTEROL SULFATE NEB 2.5 MG/0.5 ML INH INHALATION ×3 (03:10→16:05)
[2020-02-23] MEDS: IPRATROPIUM BR 0.02% INH SOLN 0.5 MG/2.5 ML VIAL INHALATION ×3 (03:11→16:05)
[2020-02-23] MEDS: methylPREDNISolone SOD SUCC 40 MG VIAL IV PUSH ×2 (06:22→14:02)
[2020-02-23 06:32] LABS: Basophils Percent Auto 0.2 % (0.2-1.2); Hematocrit 39.2 % (42.0-52.0); Hemoglobin 12.1 g/dL (14.0-18.0); Immature Granulocyte Absolute 0.05 K/mm3 (0.00-0.031); Immature Granulocyte Percent A 0.9 % (0-0.5); Lymphocytes Absolute Auto 0.65 K/mm3 (0.9-3.2); Lymphocytes Percent Auto 11.6 % (18.3-44.2); Mean Corpuscular HGB Conc 30.9 g/dl (32-36); Mean Corpuscular Hemoglobin 22.4 pg (26-34); Mean Corpuscular Volume 72.5 fl (80-100); Mean Platelet Volume 9.6 fl (7.4-10.4); Monocytes Absolute Auto 0.6 K/mm3 (0.1-0.6); Monocytes Percent Auto 9.8 % (2.6-8.5); Neutrophils Absolute Auto 4.3 K/mm3 (1.3-6.7); Neutrophils Percent Auto 77.5 % (45.5-73.1); Platelet Count Result 354 k/mm3 (150-375); Red Blood Count 5.41 M/mm3 (4.6-6.20); Red Cell Distribution Width 15.2 % (11.5-14.5); White Blood Count 5.6 K/mm3 (4.5-10.0)
[2020-02-23 06:48] LABS: Alanine Aminotransferase 50 U/L (4-50); Albumin Level 3.6 g/dL (3.5-5.1); Alkaline Phosphatase 52 U/L (38-126); Anion Gap 7 mmol/L (8-16); Aspartate Amino Transferase 52 U/L (17-59); Bilirubin,Total 0.5 mg/dL (0.2-1.3); Blood Urea Nitrogen 14 mg/dL (9-20); Calcium 8.8 mg/dL (8.4-10.2); Carbon Dioxide 29 mmol/L (22-30); Chloride 104 mmol/L (98-107); Estimated CRCL calculation 139 ml/min; Estimated Glomerular Filt Rate > 60; Glucose 123 mg/dL (75-110); Potassium 3.8 mmol/L (3.4-5.0); Sodium 140 mmol/L (137-145)
[2020-02-23 08:25] LABS: Creatine Kinase 2541 U/L (55-170)
[2020-02-23] MEDS: ENOXAPARIN 40 MG/0.4 ML SYRINGE SUB-Q (08:45)
[2020-02-23] MEDS: guaiFENesin 12 HR 600 MG TABCR 1200 MG PO (08:45)
[2020-02-23] MEDS: BENZONATATE 100 MG CAPSULE 200 MG PO ×3 (08:45→16:48)
[2020-02-23 09:58] LABS: CRP 2.7 mg/dL (<1.0)
[2020-02-23] MEDS: REMDESIVIR 100 MG/NS 250 ML 100 MG/250 ML BAG 250 MG IVPB (11:03)
--- NOTE | 2020-02-23 14:58 | PM.PNPUL ---
Progress Note: A&P Assessment and Plan (1) Pneumonia due to COVID-19 virus: Code(s): U07.1 - COVID-19; J12.89 - Other viral pneumonia Status: Acute Assessment and Plan: 29 yo man with sickle cell trait without any symptoms in the past has asthma, admitted Feb 13 with hypoxemia and (+) SARS-CoV-2 RNA Feb 13 Required O2 for a day, and has been on room air since. CXR with increased infiltrates last image Feb 20, still on room air, sat 93-98% Started remdesivir 100 mg IV Q day Feb 21; has had 2 doses; this can be stopped as he is clinically better, and does not need to stay inpatient. Solumedrol 40 mg IV Q 8 hours; can convert to prednisone 60 mg a day x 2 days and decrease by 10 mg Q 2 days Will request walk study prior to discharge to assure his saturation remains normal with exertion. He has a primary care doctor, does not need to follow up in our pulmonary clinic unless he wishes to do so. Subjective Date/time seen: 02/23/20 14:58 This 29 year old male is seen in follow up for COVID pneumonia with asthma and sickle cell trait. he is on room air, eating. Says that he feels fine, not short of breath at present, feels fine to go home. He has no sputum production, and denies wheezing. He had several days of spiking fevers, now resolved; he was started on antibiotics ceftriaxone and azithromycin empirically for these fevers with negative urine antigens for Legionella and pneumococcus Review of Systems Review of Systems: All systems reviewed & are unremarkable except as noted in HPI and below Constitutional: Constitutional: Denies body ache(s) and Denies chills Cardiovascular: Cardiovascular: Denies chest pain and Denies leg edema Respiratory: Respiratory: Denies dyspnea and Denies wheezing Musculoskeletal: Musculoskeletal: Denies myalgias, Denies arthralgias and Denies joint swelling Exam Const: General: comfortable and no acute distress Eyes: General: appearance normal, both eyes and all related structures Neck: Neck: no JVD Resp: Effort & Inspection: normal respiratory effort Cardio: Rate: regular rate Rhythm: regular rhythm GI: GI Palp: Yes Soft to palpation Skin: General skin exam: normal color Neuro: Speech: normal speech Psych: Mental Status: mental status grossly normal Objective Data Vital Signs Vital Signs: Vital Signs - 24 hr 02/22/20 16:00 02/22/20 20:00 02/22/20 22:45 Temperature 36.9 C 36.6 C Pulse Rate 83 74 Respiratory Rate 18 16 Blood Pressure 136/86 134/88 Pulse Oximetry 98 96 96 02/22/20 22:50 02/22/20 23:00 02/23/20 00:00 Temperature 36.3 C L Pulse Rate 82 86 86 Respiratory Rate 18 18 16 Blood Pressure 138/69 Pulse Oximetry 95 02/23/20 03:17 02/23/20 04:00 02/23/20 08:00 Temperature 36.5 C 37.3 C Pulse Rate 80 90 93 Respiratory Rate 18 18 18 Blood Pressure 141/87 H 153/94 H Pulse Oximetry 99 96 02/23/20 09:39 02/23/20 09:57 02/23/20 12:00 Temperature 37.1 C Pulse Rate 88 96 112 H Respiratory Rate 20 20 18 Blood Pressure 150/79 H Pulse Oximetry 93 98 Intake/Output Intake/Output: Intake & Output 02/20/20 02/21/20 02/22/20 02/23/20 23:59 23:59 23:59 23:59 Intake Total 2410 1820 2190 760 Output Total 350 625 425 300 Balance 2060 1195 1765 460 Meds/Results Medications: Active Medications Generic Name Dose Route Start Last Admin Trade Name Freq PRN Reason Stop Dose Admin Acetaminophen 650 mg 02/14/20 22:48 02/20/20 18:06 Acetaminophen 325 Mg Tablet PO 650 mg Q4H PRN Administration Mild Pain (1-3) or Fever Acetaminophen/Codeine Phosphate 5 ml 02/21/20 14:07 Acetaminophen/Codeine Elixir (*Crx) 120-12 Mg/5 Ml Udc PO Q4H PRN Cough Albuterol 2 puff 02/14/20 14:21 Albuterol Sulfate (*Sp) Aerosol 1 Puff INHALATION Q6HRT PRN Shortness Of Breath Albuterol 2.5 mg 02/20/20 11:47 Albuterol Sulfate Neb 2.5 Mg/0.5 Ml Inh INHALATION Q4HRT PRN Shortness Of B
--- NOTE | 2020-02-23 16:24 | PM.DS ---
DS: Admitting Diagnosis Admitting Diagnosis Admitting Diagnosis: Pneumonia suspected secondary to viral infection DS: Discharge Diagnosis Discharge Diagnosis (1) Pneumonia due to COVID-19 virus: Code(s): U07.1 - COVID-19; J12.89 - Other viral pneumonia Status: Acute Assessment and Plan: Discharge Summary (Date of service 02/23/20): Mr. Rivera is a 29 y.o. male with PMH significant for asthma and sickle cell trait who presented to the emergency department 02/14/20 for the evaluation of fever, productive cough, malaise, chills, and diarrhea. He reported that he had a rapid COVID test at work on Tuesday which was negative although several of his coworkers were positive for COVID. Initial workup in the emergency department included negative influenza A&B screen and CXR concerning for developing infection. He was treated with IV ceftriaxone and admitted to the hospitalist service under isolation. SARS-CoV-2 testing was positive 02/15 so IV antibiotics were discontinued 02/15. Chest CTA was ordered 02/19 given guarding with deep inspiration and negative for pulmonary embolism. Chest CTA did show progression of pneumonia with bilateral infiltrates. IV ceftriaxone and azithromycin were resumed 02/19 given persistent fevers. IV solu-medrol was initiated per pulmonology given his comorbid asthma on 02/19. He remained on room air until 02/21/20. On 02/20, he developed hypoxia with 3 liter per nasal cannula oxygen requirement so IV remdesivir was initiated. Hypoxia resolved/he was weaned to room air later that day. Fevers subsided as well after 02/19. Dyspnea and cough improved significantly and he felt much better overall. He was felt stable for discharge from a pulmonology standpoint. He did not require oxygen when the nurse evaluated his pulse oxygenation with ambulation. He understood concerning signs and symptoms which would warrant return to the emergency department. He was advised to follow-up with his primary care doctor in 1 week for a hospital follow-up visit. He was discharged in hemodynamically stable condition on the evening of 02/23/20. He was discharged on a prednisone taper per pulmonology recommendations. Please see additional diagnoses for further information. (2) Elevated CK: Code(s): R74.8 - Abnormal levels of other serum enzymes Status: Acute Assessment and Plan: CK was markedly elevated at 11,934 02/20/20. CK was ordered to monitor acute phase reactants in setting of COVID infection. This may have been secondary to viral myositis. He did not have any myalgias. He received gentle IV fluids given significant CK elevation. CK improved to 2541 02/23/20. Renal function remained normal. (3) Sepsis: Code(s): A41.9 - Sepsis, unspecified organism Status: Acute Assessment and Plan: Resolved. The patient met SIRS criteria with fever, tachycardia, and tachypnea. The suspected source was pneumonia due to viral infection. Lactic acid was elevated initially at 2.2 but normalized to 1.6 with gentle IV fluids. SARS-CoV-2 testing was positive 02/13. Fevers persisted through 02/19 so blood cultures were repeated but both sets showed no growth. He was treated with IV ceftriaxone and azithromycin given concern for superimposed bacterial infection given persistent fever. Fevers subsided after initiation of IV antibiotics. (4) Fever: Code(s): R50.9 - Fever, unspecified Status: Resolved Assessment and Plan: Resolved. Patient presented with fevers on 02/13 which persisted through 02/19. Fevers were treated with tylenol. Fevers were felt secondary to COVID-19 infection vs superimposed bacterial pneumonia. IV ceftriaxone and azithromycin were resumed 02/19 given persistent fevers. Fevers subsided with last fever 101.1F on 02/19. Clinical presentation did not suggest sickle cell crisis. Blood cultures x2 were negative for growth. Sputum culture showed normal oropharyngeal jose. (5) A
[2020-02-24 19:30] LABS: Myoglobin, Urine 3160 mcg/L (<28)
== END 2020-02-23 17:25 | disposition home or self-care (01) | DRG 871 ==
LOC: ANHED 10:41 → ANH3MEDSUR 14:45
PROVIDERS: Nurse Practitioner; Physician Assistant; Admitting Provider Family Medicine; Emergency Provider General Practice; PCP Emergency Medicine; Visit Provider Physician Assistant
DX: A41.89 Other specified sepsis (principal); U07.1 COVID-19; J12.82 Pneumonia due to coronavirus disease 2019; J45.909 Unspecified asthma, uncomplicated; D57.3 Sickle-cell trait
CPT/HCPCS: 36415; 36600; 71045; 71275; 80053; 81001; 82375; 82550; 82728; 82805; 83050; 83605; 83615; 83735; 83874; 84460; 85025; 85027; 85610; 85730; 86140; 87040; 87045; 87046; 87070; 87205; 87427; 87449; 87635; 87804; 87899; 93005; 94618; 94640; 96360; 96361; 96365; 96367; 96372; 96375; 97110; 97161; 99285; A9270; C9803; G0378; J0131; J0456; J0696; J1650; J2405; J2920; J2930; J3475; J7030; J7040; Q9967; U0003

== ENCOUNTER → 2020-02-28 14:23 | Outpatient (CLI) | payer OTHER, SELFPAY ==
--- NOTE | ~2020-02-28 | XR_ITS ---
XR chest 2V DATE: 02/28/2020 14:36 INDICATION: Cough. Recent hospitalization for Covid TECHNIQUE: PA and lateral views COMPARISON: 02/21/2020 portable AP chest FINDINGS: Normal heart size. No hilar or mediastinal enlargement. Bilateral pulmonary infiltrates hav e virtually completely cleared since 02/21/2020. No pleural effusion or pulmonary vascular congestion or pneumothorax. IMPRESSION: No active cardiopulmonary disease Reviewed, dictated and finalized at location B. [employer]
== END ==
PROVIDERS: PCP Emergency Medicine; Visit Provider Emergency Medicine
DX: R05 Cough (principal); Z86.16 Personal history of COVID-19
CPT/HCPCS: 71046

== ENCOUNTER 2020-04-10 00:41 | Day surgery (SDC) | payer OTHER, MEDICAID, SELFPAY ==
[2020-04-07 09:58] VITALS: BMI 24.5
[2020-04-10] VITALS (8 sets, daily range): BP systolic 105–129; BP diastolic 58–84; PULSE 52–72; RESP 16–19; TEMP 36.2–36.9; O2SAT 100
--- NOTE | 2020-04-10 06:08 | WPDHPUPDATE1 ---
History and Physical Update Update Date/Time: 04/10/20 06:08 History and Physical has been reviewed, including an updated exam of the patient. There are NO changes in the patient's condition. Risks, benefits, and alternatives have been discussed and questions answered. Patient agrees to proceed with procedure.
[2020-04-10] MEDS: LACTATED RINGERS 1,000 ML 30 ML IV CONT ×2 (11:41→14:11)
--- NOTE | 2020-04-10 12:23 | WPDANESEPPF ---
Anes - Initial Pre Proc Eval Procedure: Operation Date: 04/10/20 13:00 Proposed Procedures p Circumcision - Pato Aly MD Date/Time: 04/10/20 12:23 Surgeon: Pato Aly MD Pre Op Diagnosis: phimosis Patient Data Age: 29 Gender: M Height: 6 ft 1.5 in Weight: 84.6 kg Last Vital Signs Temp 36.9 C 04/10/20 11:44 Pulse 63 04/10/20 11:44 Resp 18 04/10/20 11:44 BP 123/60 04/10/20 11:44 Pulse Ox 100 04/10/20 11:44 Allergies Allergy/AdvReac Type Severity Reaction Status Date / Time aspirin Allergy Intermediate Swelling Verified 04/10/20 11:10 of Lip/Tongue/Throat ibuprofen Allergy Intermediate LIP Verified 04/10/20 11:10 SWELLING dog dander Allergy Unknown Unknown Verified 04/10/20 11:10 Home Medications Medication Instructions Recorded Confirmed Type albuterol sulfate 1 inh INHALATION QID PRN 02/27/19 04/10/20 History fluticasone propion-salmeterol 1 puff INHALATION BID 02/27/19 04/10/20 History [AirDuo RespiClick] Patient hx anesthesia problems: none Family hx anesthesia problems: none PMFSH Past Medical History Medical History Asthma COVID-19 Sickle cell trait Surgical History Surgical History No pertinent past surgical history Family History Family History Father Sickle cell disease Sibling Sickle cell trait Mother Drug overdose Social History Social History Social History: The patient lives in [place] with his . He has no children. He works at [employer] Lifelong nonsmoker. Consumes perhaps 1 alcoholic beverage a week. No illicit substance use. He designates his as his surrogate decision maker and he wishes to be a full code. Smoking packs per day: 10 Smoking cigarettes per day: 200.0 Years smoked: 3 Smoking pack-years: 30.00 Smoking status: Former smoker Smoking end date: 04/07/13 Living arrangements: with family Gender identity (if verbalized by the patient): Male Spiritual care concerns: No Anes - Eval Final PreProcedure Day of Procedure 04/10/20 12:23 Patient weight: normal Heart: regular rate and rhythm Lungs: clear to auscultation Airway: Mallampati scale class II Neurological: alert and oriented Last oral intake: >/= 8 hours ASA classification: II Emergent: no Anesthetic plan: proceed Anesthesia type and monitoring: general LMA and standard monitoring Informed Consent: The patient's anesthetic plan and its attendant risks and benefits were discussed with the patient/family/POA. Questions were solicited and answers provided to the satisfaction of the patient/family/POA.
[2020-04-10] MEDS: ceFAZolin 2 GM/D5W 50 ML 2 GM/50 ML BAG IVPB (13:16)
[2020-04-10] MEDS: BUPIVACAINE HCL 0.5% PF 30 ML VIAL INFILTRATE (13:39)
--- NOTE | 2020-04-10 14:06 | P.OP_ITS ---
Procedure Note - Detailed Date of procedure: 04/10/20 Pre-op diagnosis: Phimosis Post-op diagnosis: same Procedure performed: Circumcision Description of procedure: The patient is brought to the operative suite areas prepped and draped in a routine sterile fashion while in a supine position. The lines of circumcision are outlined using a sterile marking pen. 2 circumferential circumcising incisions were made and carried down to [facility]'s f ascia. The penile foreskin is circumferentially excised. Hemostasis is obtained with electric cautery. The edges of the penile skin reapproximated using a combination of running and interrupted 4-0 chromic. A penile block is administered at the base of the penis with 0.5% bupivacaine. The patient was taken to the recovery room in good condition. EBL was approximately 10cc. Anesthesia: GLMA Surgeon: Pato Aly MD Estimated blood loss (mL): 10 Drains: No Packing: No Pathology: yes (Foreskin) Condition: stable Disposition: PACU
== END 2020-04-10 16:29 | disposition home or self-care (01) ==
PROVIDERS: PCP Emergency Medicine; Visit Provider Urology
PROC: (CPT 54161; principal; 2020-04-10 13:00)
DX: N47.1 Phimosis (principal); Z79.51 Long term (current) use of inhaled steroids; J45.909 Unspecified asthma, uncomplicated; Z86.16 Personal history of COVID-19; D57.3 Sickle-cell trait; Z87.891 Personal history of nicotine dependence
CPT/HCPCS: 54161; 88304; 88305; A9270; J0690; J1100; J2250; J2405; J2704; J3010; J7120

== ENCOUNTER → 2020-09-27 12:46 | Outpatient (CLI) | payer OTHER, MEDICAID, SELFPAY ==
[2020-09-27 21:59] LABS: SARS-CoV-2 RNA PCR Negative
== END ==
PROVIDERS: PCP Emergency Medicine; Visit Provider Emergency Medicine
DX: Z20.822 Contact with and (suspected) exposure to COVID-19 (principal)
CPT/HCPCS: C9803; U0003; U0005

== ENCOUNTER 2021-08-11 12:26 | Emergency (ER) | payer OTHER, SELFPAY ==
[2021-08-11 12:40] VITALS: BP 119/69; PULSE 60; RESP 18; TEMP 37.2; O2SAT 100
--- NOTE | 2021-08-11 12:50 | ED.URI ---
HPI - URI/Sore Throat General Chief Complaint: Upper Respiratory Infection Stated Complaint: Congestion,Sore Throat Time Seen by Provider: 08/11/21 12:50 Source: patient and RN notes reviewed Mode of arrival: ambulatory Limitations: no limitations History of Present Illness HPI Narrative: 30-year-old male presents to the [facility] with complaints of congestion, clogged ears and a sore throat for 2 days. Has taken Sudafed with no relief. Denies fevers. Denies chest pain or abdominal pain. No cough. has the same symptoms, except she has had no longer Related Data Home Medications Medication Instructions Recorded Confirmed No Home Medications 08/11/21 08/11/21 Allergies Allergy/AdvReac Type Severity Reaction Status Date / Time aspirin Allergy Intermediate Swelling Verified 04/10/20 11:10 of Lip/Tongue/Throat ibuprofen Allergy Intermediate LIP Verified 04/10/20 11:10 SWELLING dog dander Allergy Unknown Unknown Verified 04/10/20 11:10 Review of Systems Review of Systems: All systems reviewed & are unremarkable except as noted in HPI and below Constitutional: Constitutional: Reports no additional constitutional complaints, Denies chills and Denies fever(s) Eyes: Eyes: Reports no additional eye complaints ENT: Reports as per HPI, Reports nasal congestion and Reports sore throat Cardiovascular: Cardiovascular: Reports no additional cardiovascular complaints Respiratory: Respiratory: Reports no additional respiratory complaints Gastrointestinal: Gastrointestinal: Reports no additional gastrointestinal complaints Musculoskeletal: Musculoskeletal: Reports no additional musculoskeletal complaints Integumentary/Breasts: Skin/Breast: Reports system reviewed and no additional complaints, except as docu Neurologic: Reports system reviewed and no additional complaints, except as documented Psychiatric: Psychiatric: Reports no additional psychiatric complaints Allergic/Immunologic: Allergic/Immunologic: Reports no additional allergic/immunologic complaints [facility] Past Medical History Medical History Asthma COVID-19 Sickle cell trait Surgical History Surgical History No pertinent past surgical history Family History Family History Father Sickle cell disease Sibling Sickle cell trait Mother Drug overdose Social History Social History Social History: The patient lives in [place] with his . He has no children. He works at [employer]. Lifelong nonsmoker. Consumes perhaps 1 alcoholic beverage a week. No illicit substance use. He designates his as his surrogate decision maker and he wishes to be a full code. Smoking packs per day: 10 Smoking cigarettes per day: 200.0 Years smoked: 3 Smoking pack-years: 30.00 Smoking status: Former smoker Smoking end date: 04/07/13 Gender identity (if verbalized by the patient): Male Sexual Orientation (if Verbalized by the Patient): Straight or Heterosexual Spiritual care concerns: No Comments At the time of my signature, I reviewed and agree with the nursing past medical, surgical, social, and family history. There is no relevant family history pertinent to the patient complaint. Exam Const: General: healthy appearing, no acute distress and alert Nutritional Appearance: well nourished Orientation/consciousness: patient oriented x3 Limitations: no limitations HENMT: Head: normal to inspection Ears: external ears normal, EAC's normal and TM abnormal bulging bilateral and with fluid behind the TM bilateral; not with effusion, not erythematous, with no loss of landmarks, with no myringotomy tubes present and not perforated General nose exam: Normal external nose present and No
== END 2021-08-11 13:23 | disposition home or self-care (01) ==
PROVIDERS: Emergency Provider Nurse Practitioner; PCP Emergency Medicine
DX: J06.9 Acute upper respiratory infection, unspecified (principal); R09.82 Postnasal drip; H65.03 Acute serous otitis media, bilateral; Z87.891 Personal history of nicotine dependence; J45.909 Unspecified asthma, uncomplicated; D57.3 Sickle-cell trait; Z86.16 Personal history of COVID-19
CPT/HCPCS: 87081; 87880; 99213; G0463

== ENCOUNTER 2021-10-03 18:16 | Emergency (ER) | payer BC, SELFPAY ==
[2021-10-03 18:22] VITALS: BP 109/81; PULSE 94; RESP 18; TEMP 37.4; O2SAT 98
--- NOTE | 2021-10-03 18:30 | ED.URI ---
HPI - URI/Sore Throat General Chief Complaint: Upper Respiratory Infection Stated Complaint: Headache, chills Time Seen by Provider: 10/03/21 18:30 History of Present Illness HPI Narrative: Jose L Rivera is a 30 yo male with a PMH of asthma and phimosis who comes to express care with headache fever cough, chills, some shortness of breath started 3 to 4 days ago. He has had COVID in the past , hospitalized for almost 2 weeks with pneumonia; but he is being rechecked again Related Data Home Medications Medication Instructions Recorded Confirmed Symbicort 10/03/21 albuterol 10/03/21 Allergies Allergy/AdvReac Type Severity Reaction Status Date / Time aspirin Allergy Intermediate Swelling Verified 10/03/21 18:22 of Lip/Tongue/Throat ibuprofen Allergy Intermediate LIP Verified 10/03/21 18:22 SWELLING dog dander Allergy Unknown Unknown Verified 10/03/21 18:22 Review of Systems Review of Systems: CONSTITUTIONAL: Has fever, chills, sweats. Headache EYES: Denies visual changes, redness, discharge. ENT: Denies rhinorrhea, congestion, sore throat, otalgia. CARDIOVASCULAR: Denies chest pain, palpitations, edema. RESPIRATORY: Denies dyspnea, wheezing, has cough GASTROINTESTINAL: Denies abdominal pain, nausea, vomiting, diarrhea. GENITOURINARY: Denies dysuria, hematuria, abnormal discharge SKIN: Denies rash or itching. NEUROLOGIC: Denies numbness, or focal weakness. PSYCHIATRIC: Denies anxiety or depression. [facility] Past Medical History Medical History Asthma COVID-19 Sickle cell trait Surgical History Surgical History No pertinent past surgical history Family History Family History Father Sickle cell disease Sibling Sickle cell trait Mother Drug overdose Social History Social History Social History: The patient lives in [place] with his . He has no children. He works at [employer]. Lifelong nonsmoker. Consumes perhaps 1 alcoholic beverage a week. No illicit substance use. He designates his as his surrogate decision maker and he wishes to be a full code. Smoking packs per day: 10 Smoking cigarettes per day: 200.0 Years smoked: 3 Smoking pack-years: 30.00 Smoking status: Former smoker Smoking end date: 04/07/13 Gender identity (if verbalized by the patient): Male Sexual Orientation (if Verbalized by the Patient): Straight or Heterosexual Spiritual care concerns: No Comments At time of signature, I agree with nursing past medical, surgical, social and family history. There is no relevant family history pertinent to the presenting complaint. Exam Narrative: GENERAL: This is a well-nourished, well-developed patient, in mild distress. Sweats at night HEAD: normocephalic, atraumatic. EYES: . Sclera clear/white. Vision is grossly intact. EARS: External ears normal, Hearing grossly intact. NOSE: External nose normal without nasal discharge, nares without redness, no rhinorrhea. THROAT: Mucous membranes moist, NECK: Neck supple, non-tender CARDIOVASCULAR: Tachycardic rate and rhythm without murmurs, gallops, or rubs. RESPIRATORY: Clear to auscultation. Breath sounds equal bilaterally. No wheezes, rales, or rhonchi. GASTROINTESTINAL: Not done SKIN: warm, intact with no suspicious lesions or rash, good texture and turgor. NEURO: awake, alert, and oriented to person, place and time. There were no obvious focal neurologic abnormalities. Steady gait EXTREMITIES: Normal range of motion. BACK: Nontender without deformity Course Course Emergency Course: Patient comes with symptoms of fever headache chills sweats at night x4 days-patient has a history of COVID and was hospitalized for almost 2 weeks with pneumoni
== END 2021-10-03 19:14 | disposition home or self-care (01) ==
PROVIDERS: Emergency Provider Nurse Practitioner; PCP Emergency Medicine
DX: J06.9 Acute upper respiratory infection, unspecified (principal); J01.10 Acute frontal sinusitis, unspecified; Z20.822 Contact with and (suspected) exposure to COVID-19; Z87.891 Personal history of nicotine dependence; J45.909 Unspecified asthma, uncomplicated; D57.3 Sickle-cell trait; Z86.16 Personal history of COVID-19
CPT/HCPCS: 87426; 99213; C9803; G0463

== ENCOUNTER 2024-04-16 12:11 | Outpatient (CLI) | payer OTHER, SELFPAY ==
[2024-04-16 13:37] LABS: Influenza A QL RT-PCR Negative (Negative); Influenza B QL RT-PCR Negative (Negative); SARS-CoV-2 RNA PCR Negative (Negative)
--- OUTSIDE RECORDS SUMMARY | 2024-04-16 13:54 | XMS_ITS | CONTINUITY OF CARE DOCUMENT ---
Author Name carolin coe Address Unknown Organization [facility] Address [address] [place] [address] Phone [phone] Care Team Providers Care Travel Agency Manager Name Role Phone Tien Calero MD Unavailable SANJUANITA MENDOZA MD Unavailable [phone] SANJUANITA MENDOZA MD Unavailable [phone] INSURANCE PROVIDERS Payer name Policy type / Coverage type [place] red green party ID [id number]
--- OUTSIDE RECORDS SUMMARY | 2024-04-16 13:54 | XMS_ITS | Continuity of Care Document ---
Author Name Eileen Beckman Address [address] [place] [address] Organization Unknown Address [address] [place] [address] Medications No known medications Problems No known problems
--- OUTSIDE RECORDS SUMMARY | 2024-04-16 13:55 | XMS_ITS | Referral Summary ---
Author Organization [facility] Address [address] [place] [address] Care Team Providers Care Specification Manager Name Role Phone Avelino Rico MD Primary Care Provider [phone] Source Comments [facility],non-owned Affiliates and Associated Physician Practices is amultiple site organization consisting of ambulatory clinics and hospital sitesin [place], [place], [place] and [place]. This disclosure is being madepursuant to the Care Everywhere program and may not contain all information available regarding this patient. Last updated 17.[facility] Allergies Active Allergy Reactions Criticality Noted Date Comments Ibuprofen Swelling Low 05/06/2014 lips swell up a little every time I take ibuprofen no shortness of breath or rashes Medications * Be aware that medications may not be up to date on this document. Alwaysverify current medications with the patient. Medication Sig Dispensed Refills Start Date End Date Status VENTOLIN HFA 108 (90 BASE) MCG/ACT inhaler Inhale 1 puff by mouth every 6 hours as needed 11/28/2017 Active fluticasone-salmeterol 113-14 MCG/ACT inhaler Inhale 1 puff by mouth 2 times daily 02/08/2018 Active Active Problems Problem Noted Date Diagnosed Date Ankle pain, right 01/27/2011 Social History Tobacco Use Types Packs/Day Years Used Date Smoking Tobacco: Never Smokeless Tobacco: Never Tobacco Cessation:Counseling Given: Yes Alcohol Use Standard Drinks/Week Comments No 0 (1 standard drink = 0.6 oz pur e alcohol) Sex and Gender Information Value Date Recorded Sex Assigned at Not on file Gender Identity Not on file Sexual Orientation Not on file Last Filed Vital Signs Vital Sign Reading Time Taken Comments Blood Pressure 126/78 03/23/2018 9:04 AM MANAGER METAL Pulse 83 03/23/2018 9:04 AM MANAGER METAL Temperature 37.1 C (98.8 F) 03/23/2018 9:04 AM MANAGER METAL Respiratory Rate 18 03/23/2018 9:04 AM MANAGER METAL Oxygen Saturation 99% 03/23/2018 9:04 AM MANAGER METAL Inhaled Oxygen Concentration - - Weight 80.5 kg (177 lb 6.4 oz) 03/23/2018 9:04 A M MANAGER METAL Height 185.4 cm (6' 1 ) 03/07/2018 9:28 AM MANAGER METAL Body Mass Index 23.41 03/07/2018 9:28 AM MANAGER METAL Plan of Treatment Not on file Care Teams Specification Manager Relationship Specialty Start Date End Date Avelino Rico MD [address] [facility] [address] [place] [address] PCP - General 03/23/18
--- OUTSIDE RECORDS SUMMARY | 2024-04-16 13:55 | XMS_ITS | Continuity of Care Document ---
Author Name [facility] Address [address] [place] [address] Organization Unknown Address [address] [place], [place] [id number] [place] [address] Medications No known medications Problems No known problems
--- OUTSIDE RECORDS SUMMARY | 2024-04-16 13:55 | XMS_ITS | Clinical Summary ---
Author Organization [facility] Address [address] [place] [address] Care Team Providers Care Bottle Labeler Name Role Phone Unavailable Primary Care Provider Unavailabl e Allergies Active Allergy Reactions Criticality Noted Date Comments Ibuprofen Swelling Low 05/06/2014 lips swell up a little every time I take ibuprofen no shortness of breath or rashes Medications budesonide-form oteroL (SYMBICORT) 160-4.5 mcg/actuation HFA Aerosol Inhaler Take 2 Puffs by inhalation 2 times daily. Active ALBUTEROL SULFATE ORAL Take by mouth. Ac tive Active Problems Problem Noted Date Diagnosed Date Erythrocytosis 03/02/2021 Family History Medical History Relation Name Comments Sickle Cell Anemia Father Relation Name Status Comments Brother 1 Alive Brother 2 Alive Brother 3 Alive Brother 4 Alive Brother 5 Alive Brother 6 Alive Father Mother Sister 1 Alive Sister 2 Alive Sister 3 Alive Sister 4 Alive Sister 5 Alive Sister 6 Alive Sister 7 Alive Son Alive Social History Tobacco Use Types Packs/Day Years Used Date Smoking Tobacco: Never Smokeless Tobacco: Never Alcohol Use Standard Drinks/Week Comments Never 0 (1 standard drink = 0.6 oz pur e alcohol) Sex and Gender Information Value Date Recorded Sex Assigned at Not on file Legal Sex Male 9:22 AM CDT Gender Identity Not on file Sexual Orientation Not on file Last Filed Vital Signs Vital Sign Reading Time Taken Comments Blood Pressure 121/80 03/02/2021 3:37 PM MEDICAL ASSISTANT INSTRUCTOR Pulse 72 03/02/2021 3:37 PM MEDICAL ASSISTANT INSTRUCTOR Temperature - - Respiratory Rate - - Oxygen Saturation 98% 03/02/2021 3:37 PM MEDICAL ASSISTANT INSTRUCTOR Inhaled Oxygen Concentration - - Weight 85 kg (187 lb 8 oz) 03/02/2021 3:37 PM CS T Height 188 cm (6' 2 ) 03/02/2021 3:37 PM MEDICAL ASSISTANT INSTRUCTOR Body Mass Index 24.07 03/02/2021 3:37 PM MEDICAL ASSISTANT INSTRUCTOR Plan of Treatment Health Maintenance Due Date Last Done Comments DTAP/TDAP/TD VACCINES (1 - Tdap) 11/11/2010 HEPATITIS B VACCINES (1 of 3 - 19+ 3-dose series) 11/11/2010 INFLUENZA VACCINE (#1) 2023 HPV VACCINES Aged Out No longer eligi ble based on patient's age to complete this topic Insurance OPEN ACCESS
--- OUTSIDE RECORDS SUMMARY | 2024-04-16 13:55 | XMS_ITS | Encounter Summary ---
Author Organization [facility] Address [address] [place] [address] Care Team Providers Care Equipment Sterilizer Name Role Phone Avelino Rico MD Primary Care Provider [phone] Reason for Visit * Reason Onset Date Comments Pulmonary Function Test 09/21/2018 Encounter Details Date Type Department Care Team (Late st Contact Info) Description 09/21/2018 Telephone [facility] [address] [place] [address] Alyssa Garcia Pulmonary Function Test Social History Tobacco Use Types Packs/Day Years Used Date Smoking Tobacco: Never Smokeless Tobacco: Never Alcohol Use Standard Drinks/Week Comments No 0 (1 standard drink = 0.6 oz pur e alcohol) Sex and Gender Information Value Date Recorded Sex Assigned at Not on file Gender Identity Not on file Sexual Orientation Not on file documented as of this encounter Miscellaneous Notes * Telephone Encounter - Alyssa Garcia - 09/21/2018 2:52 PM CDT Re:COMPLETE PFT W/WO BRONCHODILATOR Hi Dr. Tiwari... After 3 attempts, I have been unable to contact patient to reschedule this test he missed on 09/11/18 ... We have been instructed to close referral and refer back to office documented in this encounter Plan of Treatment Not on file documented as of this encounter Visit Diagnoses Not on filedocumented in this encounter Care Teams Equipment Sterilizer Relationship Specialty Start Date End Date Avelino Rico MD [address] [place] [id number] PCP - General 03/23/18 documented as of this encounter
--- OUTSIDE RECORDS SUMMARY | 2024-04-16 13:55 | XMS_ITS | Clinical Summary ---
Author Organization [facility] Address [address] [place] [id number] Care Team Providers Care Tax Compliance Officer Name Role Phone Avelino Rico MD Primary Care Provider [phone] Allergies Active Allergy Reactions Criticality Noted Date Comments Ibuprofen Anaphylaxis High 10/27/2021 Medications lidocaine (XYLOCAINE) 5 % ointment Apply topically as needed for pain 35.44 g 2 Active cyclobenzaprine (FLEXERIL) 10 mg tablet Take 1 tablet (10 mg total) by mouth nightly as needed for muscle spasms 12 tablet 2 Active Medical History Medical History Date Comments Asthma Family History Medical History Relation Name Comments Sickle cell anemia Other Relation Name Status Comments Other Social History Tobacco Use Types Packs/Day Years Used Date Smoking Tobacco: Never Tobacco Cessation:Counseling Given: Not Answered Alcohol Use Standard Drinks/Week Comments Not Currently 0 (1 standard drink = 0.6 oz pur e alcohol) Personal Safety Answer Date Recorded Have you ever been in or are you currently in a harmful physical or emotional relationship or is someone making you feel afraid or unsafe? Denies 09/09/2022 Sex and Gender Information Value Date Recorded Sex Assigned at Not on file Legal Sex Male 8:19 AM CDT Gender Identity Not on file Sexual Orientation Not on file Obstetrics History Last Filed Vital Signs Vital Sign Reading Time Taken Comments Blood Pressure 115/102 09/10/2022 10:00 AM CDT Pulse 90 09/10/2022 10:00 AM CDT Temperature 36.5 C (97.7 F) 09/10/2022 4:48 AM CDT Respiratory Rate 16 09/10/2022 7:19 AM CDT Oxygen Saturation 100% 09/10/2022 10:00 AM CDT Inhaled Oxygen Concentration - - Weight 87.1 kg (192 lb) 09/09/2022 11:17 PM CDT Height 185.4 cm (6' 1 ) 09/09/2022 11:17 PM CDT Body Mass Index 25.33 09/09/2022 11:17 PM CDT Plan of Treatment Health Maintenance Due Date Last Done Comments Depression Screening 1991 Hepatitis C Screening 1991 Regular Well Visit/Exam 18-64 11/11/2009 Covid-19 Vaccine ( season) 2023 02/06/2021, 01/09/2021 Influenza Vaccine (#1) 2023 7, 12/28/2005, 12/15/2004, Additional history exists DTaP/Tdap/Td Vaccine (7 - Td or Tdap) 08/17/2027 08/16/2017, 12/28/2005, 12/20/1995, Additional history exists Hepatitis B Screening Completed 03/18/1992 , 01/14/1992, 1991 Varicella Vaccines Completed 12/28/2005, 07/14/1998 HPV Vaccines Aged Out No longer eligi ble based on patient's age to complete this topic Pneumococcal vaccine <65 Aged Out No longer eligible based on patient's age to complete this topic Insurance [facility] AETNA SIGNATURE [facility] Care Teams Tax Compliance Officer Relationship Specialty Start Date End Date Avelino Rico MD PCP - General Emergency Medicine 09/03/20
--- OUTSIDE RECORDS SUMMARY | 2024-04-16 13:55 | XMS_ITS | Continuity of Care Document ---
Author Name Eileen Beckman Address [address] [place] [address] Organization Unknown Address [address] [place] [address] Medications No known medications Problems No known problems
--- OUTSIDE RECORDS SUMMARY | 2024-04-16 13:55 | XMS_ITS | Referral Summary ---
Author Organization [facility] Address [address] [place] [phone] Care Team Providers Care Business Services Administrator Name Role Phone Avelino Rico MD Primary Care Provider [phone] Allergies Active Allergy Reactions Criticality Noted Date Comments Ibuprofen Anaphylaxis High 10/27/2021 Medications lidocaine (XYLOCAINE) 5 % ointment Apply topically as needed for pain 35.44 g 2 Active cyclobenzaprine (FLEXERIL) 10 mg tablet Take 1 tablet (10 mg total) by mouth nightly as needed for muscle spasms 12 tablet 2 Active Social History Tobacco Use Types Packs/Day Years [...] 09/09/2022 11:17 PM CDT Plan of Treatment Not on file Insurance [facility] AETNA SIGNATURE [facility] [place] [facility] [place] Care Teams Business Services Administrator Relationship Specialty Start Date End Date Avelino Rico MD PCP - General Emergency Medicine 09/03/20
--- OUTSIDE RECORDS SUMMARY | 2024-04-16 13:55 | XMS_ITS | Patient Health Summary ---
Author Organization [facility] Address [address] [place] [address] Care Team Providers Care Fiber Optic Splicer Name Role Phone Avelino Rico MD Primary Care Provider [phone] Note [address] [facility],non-owned Affiliates and Associated Physician Practices is amultiple site organization consisting of ambulatory clinics and hospital sitesin [place], [place], [place] and [place]. This disclosure is being madepursuant to the Care Everywhere program and may not contain all information available regarding this patient. Last updated 17.[facility] Allergies * Ibuprofen(Swelling) -Low Criticality Medications * Be aware that medications may not be up to date on this document. Alwaysverify current medications with the patient. * VENTOLIN HFA 108 (90 BASE) MCG/ACT inhaler(Started 11/28/2017) Inhale 1 puff by mouth every 6 hours as needed * fluticasone-salmeterol 113-14 MCG/ACT inhaler(Started 02/08/2018) Inhale 1 puff by mouth 2 times daily Active Problems Problem Noted Date Diagnosed Date [...] Comments Blood Pressure 126/78 03/23/2018 9:04 AM [employer]INTING PLATE [employer]TER Pulse 83 03/23/2018 9:04 AM [employer]INTING PLATE [employer]TER Temperature 37.1 C (98.8 F) 03/23/2018 9:04 AM [employer]INTING PLATE SETTER Respiratory Rate 18 03/23/2018 9:04 AM [employer]INTING PLATE SETTER Oxygen Saturation 99% 03/23/2018 9:04 AM [employer]INTING PLATE SETTER Inhaled Oxygen Concentration - - Weight 80.5 kg (177 lb 6.4 oz) 03/23/2018 9:04 A M [employer]ING PLATE [employer]TER Height 185.4 cm (6' 1 ) 03/07/2018 9:28 AM [employer]INTING PLATE SETTER Body Mass Index 23.41 03/07/2018 9:28 AM [employer]INTING PLATE SETTER Procedures * PFT MAXIMAL INSPIRATORY/EXPIRATORY PRES(Performed 03/28/2018) Performed for Restrictive lung disease * XR CHEST 2VW(Performed 03/23/2018) Performed for Restrictive lung disease * FRACTIONAL EXHALED NITRIC OXIDE(Performed 03/20/2018) * COMPLETE PFT W/WO BRONCHODILATOR(Performed 03/13/2018) Performed for Mild persistent asthma without complication (HCC) * IMMUNOSCORE IGE INTERP(Performed 03/07/2018) Performed for Mild persistent asthma without complication (HCC) * ALLERGEN RESPIRATORY PNL REGION 8 ([place])(Performed 03/07/2018) Performed for Mild persistent asthma without complication (HCC) * IGE BLOOD(Performed 03/07/2018) Performed for Mild persistent asthma without complication (HCC) * MAGNESIUM BLOOD(Performed 05/07/2014) * BASIC METABOLIC PANEL (CALCIUM TOTAL)(Performed 05/07/2014) * CBC W AUTO DIFFERENTIAL(Performed 05/07/2014) * CBC W AUTO DIFFERENTIAL(Performed 05/07/2014) * INFLUENZA A+B PCR(Performed 05/05/2014) * INFLUENZA A+B ANTIGEN RAPID(Performed 05/05/2014) * LACTIC ACID WHOLE BLOOD(Performed 05/05/2014) * CULTURE BLOOD(Performed 05/05/2014) * CULTURE BLOOD(Performed 05/05/2014) * BASIC METABOLIC PANEL (CALCIUM TOTAL)(Performed 05/05/2014) * CBC W/O DIFFERENTIAL(Performed 05/05/2014) * XR CHEST 2VW(Performed 05/05/2014) * CULTURE STREP GROUP A(Performed 05/03/2014) * STREP A SCREEN DIRECT(Performed 05/03/2014) * XR CHEST 2VW(Performed 12/25/2013) * BASIC METABOLIC PANEL (CALCIUM TOTAL)(Performed 07/04/2013) * HEPATIC FUNCTION PANEL(Performed 07/04/2013) * PHOSPHORUS BLOOD(Performed 07/04/2013) * MAGNESIUM BLOOD(Performed 07/04/2013) * CBC W AUTO DIFFERENTIAL(Performed 07/04/2013) * CBC W AUTO DIFFERENTIAL(Performed 07/04/2013) * EKG 12-LEAD(Performed 07/04/2013) * MAGNESIUM BLOOD(Performed 07/03/2013) * COMPREHENSIVE METABOLIC PANEL(Performed 07/03/2013) * CBC W AUTO DIFFERENTIAL(Performed 07/03/2013) * CBC W AUTO DIFFERENTIAL(Performed 07/03/2013) * XR CHEST 2VW(Performed 07/03/2013) * XR ANKLE RIGHT 3VW OR MORE(Performed 01/27/2011) Performed for Ankle pain, right Results * PFT MAXIMAL INSPIRATORY/EXPIRATORY PRES (03/28/2018 10:03 PM PRINTING PLATE SETTER) Impressions Allan Coronado MD - 03/28/2018 10:03 PM PRINTING PLATE SETTER [facility] DEPARTMENT OF PULMONARY, CRITICAL CARE, AND SLEEP MEDICINE PFT MAXIMAL INSPIRATORY/EXPIRATORY PRESSURES Please see technologist's comments mentioned in the report. INTERPRETATION: MIP is -129 cmH2O which is higher than LLN of -82. MEP is 151 cmH2O which is higher than LLN of 147. Shreyas Leija MD Pulmonary & Critical Care Fellow Division of Pulmonary, Critical Care and Sleep Medicine [facility] [employer] [facility] [employer] Pager: [phone] I have personally reviewed and agree with the fellow's interpretation. Allan Coronado MD Narrative Allan Coronado MD - 03/28/2018 10:03 PM PRINTING PLATE SETTER Shreyas Leija MD 03/28/2018 4:20 PM Gerson Tiwari MD PFT ORDERABLES * XR CHEST 2VW (03/23/2018 9:52 AM PRINTING PLATE SETTER) Only the most recent of4 resultswithin the time period is included. Anatomical Region Laterality Modality Chest Radiographic Lizbet ging 03/23/2018 9:56 AM PRINTING PLATE SETTER Impressions 03/23/2018 1:13 PM PRINTING PLATE SETTER IMPRESSION: No acute pulmonary process. Dictated by Vinod Walsh MD (radiology asst). Dr. EN Bassett have personally reviewed and interpreted this examination/study. This report was electronically signed by EN PATEL on 03/23/2018 1:13 PM . Narrative 03/23/2018 1:13 PM PRINTING PLATE SETTER EXAMINATION: XR CHEST 2VW HISTORY: 27-year-old with restrictive lung disease. COMPARISON: Chest x-ray dated 05/05/2014. FINDINGS: The lungs are persistently hyperinflated with mild flattening of the hemidiaphragms. There is no focal consolidation, pleural effusion, or pneumothorax. The cardiomediastinal silhouette is normal. The visible bony thorax is intact. Procedure Note En Patel DO - 03/23/2018 EXAMINATION: XR CHEST 2VW HISTORY: 27-year-old with restrictive lung disease. COMPARISON: Chest x-ray dated 05/05/2014. FINDINGS: The lungs are persistently hyperinflated with mild flattening of the hemidiaphragms. There is no focal consolidation, pleural effusion, or pneumothorax. The cardiomediastinal silhouette is normal. The visiblebony thorax is intact. IMPRESSION: No acute pulmonary process. Dictated by Vinod Walsh MD (radiology asst). Dr. EN Bassett have personally reviewed and interpreted this examination/study. This report was electronically signed by EN PATEL on 03/23/2018 1:13 PM . Gerson Tiwari MD DIAGNOSTIC IMAGING O RDERABLES * FRACTIONAL EXHALED NITRIC OXIDE (03/20/2018 12:08 PM PRINTING PLATE SETTER) Impressions Natan Lu MD - 03/20/2018 12:08 PM PRINTING PLATE SETTER [facility] DEPARTMENT OF PULMONARY, CRITICAL CARE, AND SLEEP MEDICINE EXHALED NITRIC OXIDE (FeNO) Jose L Rivera 03/15/2018 INTERPRETATION The measurement of fractional exhaled nitric oxide (FENO) was 84 ppb. IMPRESSION: 1. High fractional exhaled nitric oxide. 2. No prior study to compare. Brenda Cota MD Pulmonary / Critical Care Fellow Division of Pulmonary, Critical Care, & Sleep Medicine [facility] I have personally reviewed the test data and agree with 's findings. Natan Lu MD 03/20/2018 Narrative Natan Lu MD - 03/20/2018 12:08 PM PRINTING PLATE SETTER Brenda Cota MD 03/15/2018 5:18 PM Procedure Note Brenda Cota MD - 03/15/2018 1:00 PM CST Images from the original note were not included. Gerson Tiwari MD RESPIRATORY THERAPY ORDERABLES * COMPLETE PFT W/WO BRONCHODILATOR (03/13/2018 9:35 PM PRINTING PLATE SETTER) Impressions Natan Lu MD - 03/13/2018 9:35 PM PRINTING PLATE SETTER [facility] DEPARTMENT OF PULMONARY, CRITICAL CARE, AND SLEEP MEDICINE PULMONARY FUNCTION TESTS Jose L Rivera 27 y.o. black BMI 23.2 03/13/2018 INTERPRETATION Please see technologist's comments mentioned above. SPIROMETRY: FEV1/FVC ratio is Decreased . FEV1 is Decreased. Forced vital capacity is Normal. There is no significant response to bronchodilator administration. Inspection of the patient's flow-volume loops shows normal configuration of the inspiratory and expiratory limbs. LUNG VOLUMES: Lung volumes by body plethysmography show mildly reduced TLC. DLCO: Diffusing capacity unadjusted for Hb and COHb is within normal limits. AIRWAY RESISTANCE: The airway resistance is increased and the specific conductance is decreased which become normal after bronchodilators. IMPRESSION: 1. Combined Moderate obstructive and mild restrictive ventilatory limitation 2. There is no significant response to bronchodilator administration. This does not preclude the use of bronchodilator therapy if clinically indicated. 3. Diffusing capacity unadjusted for Hb and COHb is within normal limits. There is no previous study available for comparison. Brenda Cota MD ( Fellow) Division of Pulmonary, Critical Care, & Sleep Medicine [facility] [employer] I have personally reviewed the test data and agree with 's findings. Natna Lu MD 03/13/2018 Narrative Natan Lu MD - 03/13/2018 9:35 PM PRINTING PLATE SETTER Brenda Cota MD 03/13/2018 1:42 PM Gerson Tiwari MD RESPIRATORY THERAPY ORDERABLES * IMMUNOSCORE IGE INTERP (03/07/2018 10:37 AM PRINTING PLATE SETTER) [facility] Signature Immunocap Score See Note 9 1:35 PM PRINTING PLATE SETTER [employer] ([facility]) Comment: REFERENCE INTERVAL: Allergen, Interpretation Less than 0.10 kU/L......Class 0.....No significant level detected 0.10-0.34 kU/L...........Class 0/1...Clinical relevance undetermined 0.35-0.70 kU/L...........Class 1.....Low 0.71-3.50 kU/L...........Class 2.....Moderate 3.51-17.50 kU/L..........Class 3.....High 17.51-50.00 kU/L.........Class 4.....Very High 50.01-100.00 kU/L........Class 5.....Very High Greater than 100.00kU/L..Class 6.....Very High Allergen results of 0.10-0.34 kU/L are intended for specialist use as the clinical relevance is undetermined. Even though increasing ranges are reflective of increasing concentrations of allergen-specific IgE, these concentrations may not correlate with the degree of clinical response or skin testing results when challenged with a specific allergen. The correlation of allergy laboratory results with clinical history and in vivo reactivity to specific allergens is essential. A negative test may not rule out clinical allergy or even anaphylaxis. Performed by [facility], [address] [place] [address],[place] [address] [email or web address], Minor Meraz MD, Lab. Director Blood BLOOD SPECIMEN / Unknown Lab Venipuncture / Unknown 03/07/2018 10:37 AM PRINTING PLATE SETTER 03/07/2018 10:46 AM PRINTING PLATE SETTER Gerson Tiwari MD LAB - SEROLOGY ORDER [facility] [employer] [facility]) [address] [id number] * (ABNORMAL) ALLERGEN RESPIRATORY PROFILE ([place]) (03/07/2018 10:37 AM PRINTING PLATE SETTER) IgE Total 78 <=214 kU/L 03/11/2018 5:05 AM [facility] [employer] ([facility]) Comment: REFERENCE INTERVAL: Immunoglobulin E, Serum Access complete set of age- and/or gender-specific reference intervals for this test in the [facility] Laboratory Test Directory ([employer]). Allergen Dermatophagoides farinae 0.43(H) <=0.34 kU/L 03/11/2018 5:05 AM [facility] [employer] [facility]) Allergen Dermatophagoides pteronyssinus 0.13 <=0.34 kU/L 03/11/2018 5:05 AM [facility]) Allergen Cat Dander <0.10 <=0.34 kU/L 03/11/2018 5:05 AM [facility]) Allergen Dog Dander 0.13 <=0.34 kU/L 03/11/2018 5:05 AM [facility]) Allergen Bermuda Grass 0.13 <=0.34 kU/L 03/11/2018 5:05 AM [facility]) Allergen Ilir Grass 0.23 <=0.34 kU/L 03/11/2018 5:05 AM [facility] [employer] [facility]) Allergen Cockroach Setswana <0.10 <=0.34 kU/L 03/11/2018 5:05 AM [facility]) Allergen Alternaria alternata 13.30(H) <=0.34 kU/L 03/11/2018 5:05 AM [facility]) Allergen A fumigatus IgE 4.92(H) <=0.34 kU/L 03/11/2018 5:05 AM [facility]) Allergen Hormodendrum 1.56(H) <=0.34 kU/L 03/11/2018 5:05 AM [employer] [facility]) Allergen P. Notatum 3.01(H) <=0.34 kU/L 03/11/2018 5:05 AM [employer] [facility]) Allergen Baraga Maple 0.23 <=0.34 kU/L 03/11/2018 5:05 AM PR[employer]ING PLATE [employer]TER [facility]) Allergen Duncan Tree 0.24 <=0.34 kU/L 03/11/2018 5:05 AM [employer]ATE [employer] [facility]) Allergen Elm 0.38(H) <=0.34 kU/L 03/11/2018 5:05 AM PR[employer]ING PLATE SETTER [facility]) Allergen [place] Tree 0.29 <=0.34 kU/L 03/11/2018 5:05 AM PR[employer]ING PLATE [employer]TER [facility]) Allergen Mountain Sw[place] 0.44(H) <=0.34 kU/L 03/11/2018 5:05 AM PRINTING PLATE SETTER [facility]) Allergen White Gary Tree IgE <0.10 <=0.34 kU/L 03/11/2018 5:05 AM PRINTING PLATE SETTER [facility]) Allergen Dickinson Center 0.19 <=0.34 kU/L 03/11/2018 5:05 AM PRINTING PLATE SETTER [facility]) Allergen Pecan Tree 0.10 <=0.34 kU/L 03/11/2018 5:05 AM PRINTING PLATE SETTER [facility]) Allergen Palermo Tree 0.83(H) <=0.34 kU/L 03/11/2018 5:05 AM PRINTING PLATE [employer]TER [facility]) Allergen White Chu 1.43(H) <=0.34 kU/L 03/11/2018 5:05 AM PRINTING PLATE SETTER [facility]) Allergen Rough Pigweed 0.40(H) <=0.34 kU/L 03/11/2018 5:05 AM PRINTING PLATE SETTER [facility]) Allergen Common Ragweed 0.39(H) <=0.34 kU/L 03/11/2018 5:05 AM PRINTING PLATE [employer]TER [facility]) Allergen Scott Elder 0.22 <=0.34 kU/L 03/11/2018 5:05 AM PRINTING PLATE [employer]TER [facility]) Allergen Montenegrin Thistle 0.15 <=0.34 kU/L 03/11/2018 5:05 AM PRINTING PLATE SETTER [facility] ([facility]) Allergen Mouse <0.10 <=0.34 kU/L 03/11/2018 5:05 AM PRINTING PLATE SETTER [facility] ([facility]) Allergen Mucor racemosus 0.20 <=0.34 kU/L 03/11/2018 5:05 AM PRINTING PLATE SETTER [facility] ([facility]) Allergen Peanut <0.10 <=0.34 kU/L 03/11/2018 5:05 AM PRINTING PLATE SETTER [facility] ([facility]) Allergen Milk (Cow) <0.10 <=0.34 kU/L 03/11/2018 5:05 AM PRINTING PLATE SETTER [facility] ([facility]) Comment: Performed by [facility], [address] [place] [address] [email or web address], Minor Meraz MD, Lab. Director Blood BLOOD SPECIMEN / Unknown Lab Venipuncture / Unknown 03/07/2018 10:37 AM PRINTING PLATE SETTER 03/07/2018 10:46 AM PRINTING PLATE SETTER Gerson Tiwari MD LAB - CHEMISTRY SHAMAR HERMOSILLO Performing Organization Address City/[facility]/ZIP Co de Phone Number [facility] [employer] ([facility]) [address] [place] [address] * IGE BLOOD (03/07/2018 10:37 AM PRINTING PLATE SETTER) [facility] IgE 74 0 - 100 IU/mL 03/10/2018 4:25 PM PRINTING PLATE SETTER [facility] ([facility]) Blood BLOOD SPECIMEN / Unknown Lab Venipuncture / Unknown 03/07/2018 10:37 AM PRINTING PLATE SETTER 03/07/2018 10:46 AM PRINTING PLATE SETTER Narrative [facility] ([facility]) - 03/10/2018 4:25 PM PRINTING PLATE SETTER Performed at: 01 - [address] [id number] Rn Clinical Documentation Specialist: Gloria Wilkerson MD, Phone: [phone] Gerson Tiwari MD LAB - CHEMISTRY SHAMAR HERMOSILLO [facility] ([facility]) [address] [place] [address], [facility] * (ABNORMAL) CBC W AUTO DIFFERENTIAL (05/07/2014 6:10 AM CDT) Only the most recent of6 resultswithin the time period is included. WBC 7.8 3.5 - 10.5 10 3/uL [facility] RBC 5.62 4.30 - 5.70 10 6/uL [facility] Hemoglobin 13.3(L) 13.5 - 17.5 g/dL [facility] Hematocrit 40.5 39.0 - 50.0 % [facility] MCV 72.1(L) 81.0 - 97.0 fL [facility] MCH 23.7(L) 28.0 - 34.0 pg [facility] MCHC 32.8 32.0 - 36.0 g/dL [facility] Platelet Count 185 150 - 400 10 3/uL [facility] RDW-SD 38.3 36.0 - 50.0 fL [facility] RDW-CV 14.8 11.2 - 14.8 % [facility] MPV 9.8 9.3 - 12.8 fL [facility] Neutrophils % 63.3 35.0 - 70.0 % [facility] Lymphocytes % 25.4 19.7 - 55.1 % [facility] Monocytes % 10.2 3.0 - 15.0 % [facility] Eosinophils % 1.0 0.0 - 6.0 % [facility] Basophil % 0.1 0.0 - 1.5 % [facility] Neutrophils Absolute 4.9 1.6 - 7.0 10 3/uL [facility] Lymphocyte Absolute 2.0 0.8 - 2.9 10 3/uL [facility] Monocytes Absolute 0.79(H) 0.14 - 0.66 10 3/uL [facility] Eosinophils Absolute 0.08 0.00 - 0.22 10 3/uL [facility] Basophils Absolute 0.01 0.00 - 0.06 10 3/uL [facility] Immature Granulocytes % 0.1 0.0 - 1.0 % [facility] Blood specimen (specimen) BLOOD SPECIMEN / Unknown 05/07/2014 6:10 AM CDT 05/07/2014 6:16 AM CDT Mook Sweet MD LAB - HEMATOLOGY OR DERABLES [address] [phone] * BASIC METABOLIC PANEL (CALCIUM TOTAL) (05/07/2014 6:10 AM CDT) Only the most recent of3 resultswithin the time period is included. BUN 12 7 - 26 mg/dL [facility] Creatinine 0.9 0.6 - 1.2 mg/dL [facility] Sodium 140 136 - 145 mmol/L [facility] Potassium 3.8 3.5 - 4.5 mmol/L [facility] Chloride 106 98 - 107 mmol/L [facility] CO2 24 22 - 29 mmol/L [facility] Glucose 104 70 - 115 mg/dL [facility] Calcium 9.1 8.4 - 10.2 mg/dL [facility] Anion Gap 14 8 - 18 [facility] BUN/Creatinine Ratio 13 7 - 23 [facility] Osmolality Calculated 275 270 - 300 mOsm/kg [facility] eGFR >60 >60 mL/min/1.7 3 m2 [facility] Blood specimen (specimen) BLOOD SPECIMEN / Unknown 05/07/2014 6:10 AM CDT 05/07/2014 6:16 AM CDT Mook Sweet MD LAB - CHEMISTRY ORD ERABLES Performing Organization Address City/[facility] Co de Phone Number [address] [phone] * MAGNESIUM BLOOD (05/07/2014 6:10 AM CDT) Only the most recent of3 resultswithin the time period is included. Magnesium 1.9 1.6 - 2.6 mg/dL [facility] Blood specimen (specimen) BLOOD SPECIMEN / Unknown 05/07/2014 6:10 AM CDT 05/07/2014 6:16 AM CDT Mook Sweet MD LAB - CHEMISTRY ORD ERABLES Performing Organization Address City/[facility] [place] [address], [facility] [phone] * INFLUENZA A+B PCR (05/05/2014 10:17 PM CDT) [facility] Influenza A Non subtyped Not Detected Not Detected [facility] Influenza B Not Detected Not Detected [facility] Respiratory Syncytial Virus Not Detected Not Detected [facility] RSV B Not Detected Not Detected [facility] Nasopharyngeal NASOPHARYNGEAL SWAB / Unknown 05/05/2014 10:17 PM CDT 05/06/2014 10:21 PM CDT Narrative [facility] - 05/07/2014 1:03 AM CDT Assay performed by [employer]. NOTE: Negative results for Influenza A, Influenza B or RSV do not preclude influenza virus or RSV infection and should not be used as the sole basis for diagnosis, treatment or patient management decisions. Mook Sweet MD LAB - MICROBIOLOGY ORDERABLES Performing Organization Address [facility] [place] [address], [facility] [phone] * INFLUENZA A+B ANTIGEN RAPID (05/05/2014 10:17 PM CDT) [facility] Influenza A Rapid Test Negative Negative [facility] Influenza B Rapid Test Negative Negative [facility] Nasopharyngeal SPECIMEN FROM NASOPHARYNGEAL STRUCTURE / Unknown 05/05/2014 10:17 PM CDT 05/05/2014 10:32 PM CDT Narrative [facility] - 05/05/2014 10:54 PM CDT Specimen Type->Nasopharyngeal If clinical conditions warrant, molecular testing for Influenza offers superior sensitivity (>98%) and is available by ordering INFLUENZA/RSV MAY [[id number]]. To add to current sample within [address] an electronic or signed manual requisition order and call the [facility] Microbiology Lab at [phone] with your request. The positive and negative predictive values of rapid influenza testing vary considerably depending upon the prevalence on influenza in the community. *False-positive results are more likely to occur when disease prevalence is low. *False-negative results are more likely to occur when disease prevalence is high. *Current local influenza prevalence can be obtained by calling the Director of Microbiology at [phone]. Herminia Simon MD LAB - MICROBIOLOGY O KULDEEP Performing Organization Address City/[facility]/[place] [address], [facility] [phone] * LACTIC ACID WHOLE BLOOD (05/05/2014 9:57 PM CDT) Lactic Acid Whole Blood 2.7 0.5 - 3.4 mmol/L [facility] Blood specimen (specimen) BLOOD SPECIMEN / Unknown 05/05/2014 9:57 PM CDT 05/05/2014 9:57 PM CDT Herminia Simon MD LAB - CHEMISTRY SHAMAR HERMOSILLO Performing Organization Address [facility] Co de Phone Number [address] [phone] * CULTURE BLOOD (05/05/2014 9:33 PM CDT) Only the most recent of2 resultswithin the time period is included. Pathologist [facility] Culture Blood No Growth at 5 days [facility] Blood specimen (specimen) BLOOD SPECIMEN / Unknown 05/05/2014 9:33 PM CDT 05/05/2014 10:13 PM CDT Narrative [facility] - 05/10/2014 10:15 PM CDT Draw 15 minutes after Culture 1 from a different site Specimen Type->Blood Herminia Simon MD LAB - MICROBIOLOGY O KULDEEP Performing Organization Address [facility]/[place] [address], [facility] [phone] * (ABNORMAL) CBC W/O DIFFERENTIAL (05/05/2014 9:29 PM CDT) WBC 9.7 3.5 - 10.5 10 3/uL [facility] RBC 6.29(H) 4.30 - 5.70 10 6/uL [facility] Hemoglobin 14.8 13.5 - 17.5 g/dL [facility] Hematocrit 45.8 39.0 - 50.0 % [facility] MCV 72.8(L) 81.0 - 97.0 fL [facility] MCH 23.5(L) 28.0 - 34.0 pg [facility] MCHC 32.3 32.0 - 36.0 g/dL [facility] Platelet Count 211 150 - 400 10 3/uL [facility] RDW-SD 38.2 36.0 - 50.0 fL [facility] RDW-CV 14.6 11.2 - 14.8 % [facility] MPV 10.2 9.3 - 12.8 fL [facility] nRBC Absolute 0.00 0 10 3/uL [facility] nRBC Auto 0.0 0 /100 WBC [facility] Blood specimen (specimen) BLOOD SPECIMEN / Unknown 05/05/2014 9:29 PM CDT 05/05/2014 9:40 PM CDT Herminia Simon MD LAB - HEMATOLOGY ORD ERABLES Performing Organization Address City/State/[facility] Co de Phone Number [address] [phone] * STREP A SCREEN DIRECT (05/03/2014 12:52 PM CDT) [facility] Rapid Strep A Screen Negative Negative [facility] Throat swab (specimen) ENTIRE THROAT (SURFACE REGION OF NECK) / Unknown 05/03/2014 12:52 PM CDT 05/03/2014 12:54 PM CDT Narrative [facility] - 05/03/2014 1:06 PM CDT Specimen Type->Throat Swab Rapid test for Group A Beta Streptococcus is NEGATIVE. A Negative, Direct Test for Group A Streptococcus will be followed with a confirmatory Throat Culture when 2 swabs have been submitted. Roro Holguin MD LAB - MICROBIOLOGY ORDERABLES Performing Organization Address City/[facility]/ZIP Co de Phone Number [address] [phone] * CULTURE STREP GROUP A (05/03/2014 12:52 PM CDT) Pathologist [facility] Culture Beta Strep No Growth of Groups A, C or G Beta Streptococc us. [facility] Throat swab (specimen) ENTIRE THROAT (SURFACE REGION OF NECK) / Unknown 05/03/2014 12:52 PM CDT 05/03/2014 1:06 PM CDT Roro Holguin MD LAB - MICROBIOLOGY ORDERABLES [address] [phone] * PHOSPHORUS BLOOD (07/04/2013 2:30 AM CDT) [facility] Phosphorus 3.2 2.3 - 4.7 mg/dL [facility] Blood specimen (specimen) BLOOD SPECIMEN / Unknown 07/04/2013 2:30 AM CDT 07/04/2013 3:09 AM CDT Sara More MD LAB - CHEMISTRY [place] Performing Organization Address [facility]/ZIP Co de Phone Number [address] [phone] * (ABNORMAL) HEPATIC FUNCTION PANEL (07/04/2013 2:30 AM CDT) [facility] Bilirubin Conjugated 0.3 0.0 - 0.5 mg/dL [facility] Bilirubin Unconjugated 0.3 Unconjugated Bilirubin is a calculated value: Reference ranges have not been established. mg/dL [facility] Albumin/Globulin Ratio 1.0(L) 1.1 - 2.3 [facility] Protein Total 7.5 6.0 - 8.3 g/dL [facility] Albumin 3.7 3.4 - 5.0 g/dL [facility] Bilirubin Total 0.6 0.2 - 1.2 mg/dL [facility] Alkaline Phosphatase 94 40 - 150 Units/L [facility] ALT 20 0 - 55 Units/L [facility] AST 23 5 - 34 Units/L [facility] Blood specimen (specimen) BLOOD SPECIMEN / Unknown 07/04/2013 2:30 AM CDT 07/04/2013 3:09 AM CDT Sara More MD LAB - CHEMISTRY SHAMAR HERMOSILLO [facility] [address] [phone] * EKG 12-LEAD (07/04/2013 12:00 AM CDT) [facility] EKG [facility] Comment: Exam Date/Time: Jul 04 2013 08:52:14 Test Reason : tachycardia Blood Pressure : / mmHG Vent. Rate : 070 BPM Atrial Rate : 070 BPM P-R Int : 146 ms QRS Dur : 088 ms QT Int : 368 ms P-R-T Axes : 045 072 052 degrees QTc Int : 397 ms Sinus rhythm with marked sinus arrythmia Otherwise normal ECG No previous ECGs available Confirmed by MD Carole, Penny ([id number]), senior editor Sylvia Lester ([id number]) on 07/10/2013 2:56:54 PM Referred By: MARIAM Confirmed By:Penny Lam MD 07/04/2013 Sara More MD ECG ORDERABLES Performing Organization Address [facility]/ZIP Co de Phone Number [facility] * (ABNORMAL) COMPREHENSIVE METABOLIC PANEL (07/03/2013 2:10 PM CDT) Pathologist [facility] BUN 11 7 - 26 mg/dL [facility] Anion Gap 17 8 - 18 [facility] BUN/Creatinine Ratio 11 7 - 23 [facility] Osmolality Calculated 275 270 - 300 mOsm/kg [facility] Albumin/Globulin Ratio 1.0(L) 1.1 - 2.3 [facility] Creatinine 1.0 0.6 - 1.2 mg/dL [facility] Sodium 141 136 - 145 mmol/L [facility] Potassium 4.4 3.5 - 4.5 mmol/L [facility] Chloride 104 98 - 107 mmol/L [facility] CO2 24 22 - 29 mmol/L [facility] Glucose 60(L) 70 - 115 mg/dL [facility] Calcium 9.4 8.4 - 10.2 mg/dL [facility] Protein Total 7.8 6.0 - 8.3 g/dL [facility] Albumin 3.9 3.4 - 5.0 g/dL [facility] Bilirubin Total 1.4(H) 0.2 - 1.2 mg/dL [facility] Alkaline Phosphatase 90 40 - 150 Units/L [facility] ALT 19 0 - 55 Units/L [facility] AST 28 5 - 34 Units/L [facility] eGFR >60 >60 mL/min/1.7 3 m2 [facility] Blood specimen (specimen) BLOOD SPECIMEN / Unknown 07/03/2013 2:10 PM CDT 07/03/2013 2:12 PM CDT Ed Peres MD LAB - CHEMISTRY SHAMAR HERMOSILLO [facility] Organization Address City/State/[facility] Co de Phone Number [address] [phone] * XR ANKLE 3+ VW RIGHT (01/27/2011 6:54 PM PRINTING PLATE SETTER) Anatomical Region Laterality Modality Lower Extremity Radiographic Lizbet ging 01/27/2011 6:58 PM PRINTING PLATE SETTER Narrative 01/27/2011 6:58 PM PRINTING PLATE SETTER RIGHT ANKLE INDICATION: Right ankle pain after fall on ice Three views demonstrate a small bony density just superior to the talonavicular joint which probably represents the os supranaviculare. Please correlate clinically in order to definitely exclude a small avulsion fracture. The right ankle is otherwise negative. There is no narrowing or irregularity of the tibiotalar joint. There is no definite evidence of a fracture or other significant bony abnormality. Procedure Note Moses Tejada MD - 01/27/2011 RIGHT ANKLE INDICATION: Right ankle pain after fall on ice Three views demonstrate a small bony density just superior to the talonavicular joint which probably represents the os supranaviculare. Please correlate clinically in order to definitely exclude a small avulsion fracture. The right ankle is otherwise negative. There is no narrowing or irregularity of the tibiotalar joint. There is no definite evidence of a fracture or other significant bony abnormality. Orlin Duval MD DIAGNOSTIC IMAGING [facility] Care Teams Fiber Optic Splicer Relationship Specialty Start Date End Date Avelino Rico MD [facility] [address] [facility] [address] [place] [address] PCP - General 03/23/18
--- OUTSIDE RECORDS SUMMARY | 2024-04-16 13:55 | XMS_ITS | Clinical Summary ---
Author Organization [facility] Address [address] [facility] [place] [address] Care Team Providers Care General Neurologist Name Role Phone Avelino Rico MD Primary Care Provider [phone] Source Comments [facility],non-owned Affiliates and Associated Physician Practices is amultiple site organization consisting of ambulatory clinics and hospital sitesin [place], [place], [place] and [place]. This disclosure is being madepursuant to the Care Everywhere program and may not contain all information available regarding this patient. Last updated 17.[facility] Allergies Active Allergy Reactions Criticality Noted Date [...] Comments Blood Pressure 126/78 03/23/2018 9:04 AM PAVING SUPERVISOR Pulse 83 03/23/2018 9:04 AM PAVING SUPERVISOR Temperature 37.1 C (98.8 F) 03/23/2018 9:04 AM PAVING SUPERVISOR Respiratory Rate 18 03/23/2018 9:04 AM PAVING SUPERVISOR Oxygen Saturation 99% 03/23/2018 9:04 AM PAVING SUPERVISOR Inhaled Oxygen Concentration - - Weight 80.5 kg (177 lb 6.4 oz) 03/23/2018 9:04 A M PAVING SUPERVISOR Height 185.4 cm (6' 1 ) 03/07/2018 9:28 AM PAVING SUPERVISOR Body Mass Index 23.41 03/07/2018 9:28 AM PAVING SUPERVISOR Plan of Treatment Health Maintenance Due Date Last Done Comments HIV SCREENING 11/11/2006 HEPATITIS C SCREENING 11/07/2009 DTAP/TDAP/TD VACCINES (1 - Tdap) 11/11/2010 HEPATITIS B VACCINE (1 of 3 - 19+ 3-dose series) 11/11/2010 COVID-19 VACCINE ( - 2023-2 5 season) 2023 INFLUENZA VACCINE (#1) 2023 DEPRESSION SCREENING 02/22/2024 ZOSTER VACCINE (1 of 2) 11/11/2041 HIB VACCINE Aged Out No longer eligi ble based on patient's age to complete this topic HPV VACCINE Aged Out No longer eligi ble based on patient's age to complete this topic MENINGOCOCCAL (Group B) VACCINE Aged Out No longer eligible based on patient's age to complete this topic MENINGOCOCCAL VACCINE Aged Out No andre kelly eligible based on patient's age to complete this topic PNEUMOCOCCAL VACCINE Aged Out No long er eligible based on patient's age to complete this topic Care Teams General Neurologist Relationship Specialty Start Date End Date Avelino Rico MD [address] [facility] [address] [place] [address] PCP - General 03/23/18
== END 2024-04-16 12:12 | disposition home or self-care (01) ==
LOC: ANHLAB 12:15
PROVIDERS: PCP Emergency Medicine; Visit Provider Emergency Medicine
DX: J06.9 Acute upper respiratory infection, unspecified (principal)
CPT/HCPCS: 87502; 87635

== ENCOUNTER 2024-05-05 17:54 | Emergency (ER) | payer OTHER, SELFPAY ==
--- NOTE | ~2024-05-05 | XR_ITS ---
EXAMINATION: XR chest 2V Exam Date/Time: 05/05/2024 18:10 CDT HISTORY: SOB, Cogh Comparison: 02/28/2020. RESULT: Lines, tubes, and devices: None. Lungs and pleura: Clear. Cardiomediastinal silhouette: Stable. Other: No acute osseous or upper abdominal finding. IMPRESSION: No acute cardiopulmonary process. Reviewed, dictated and finalized at location K.
--- OUTSIDE RECORDS SUMMARY | 2024-05-05 17:56 | XMS_ITS | Referral Summary ---
Author Organization [facility] Address [address] [place] [phone] Care Team Providers Care Pivot End Polisher Name Role Phone Avelino Rico MD Primary Care Provider [phone] Allergies Active Allergy Reactions Criticality Noted Date [...] Plan of Treatment Not on file Insurance [facility] AETNA SIGNATURE [facility] [place] [facility] [place] Care Teams Pivot End Polisher Relationship Specialty Start Date End Date Avelino Rico MD PCP - General Emergency Medicine 09/03/20
--- OUTSIDE RECORDS SUMMARY | 2024-05-05 17:56 | XMS_ITS | Clinical Summary ---
Author Organization [facility] Address [address] [place] [address] Care Team Providers Care Steamboat Pilot Name Role Phone Unavailable Primary Care Provider [...] Comments Blood Pressure 121/80 03/02/2021 3:37 PM LINTING MACHINE OPERATOR Pulse 72 03/02/2021 3:37 PM LINTING MACHINE OPERATOR Temperature - - Respiratory Rate - - Oxygen Saturation 98% 03/02/2021 3:37 PM LINTING MACHINE OPERATOR Inhaled Oxygen Concentration - - Weight 85 kg (187 lb 8 oz) 03/02/2021 3:37 PM CS T Height 188 cm (6' 2 ) 03/02/2021 3:37 PM LINTING MACHINE OPERATOR Body Mass Index 24.07 03/02/2021 3:37 PM LINTING MACHINE OPERATOR Plan of Treatment Health Maintenance Due Date Last Done Comments DTAP/TDAP/TD VACCINES (1 - Tdap) 11/11/2010 HEPATITIS B VACCINES (1 of 3 - 19+ 3-dose series) 11/11/2010 INFLUENZA VACCINE (#1) 2023 HPV VACCINES Aged Out No longer eligi ble based on patient's age to complete this topic Insurance OPEN ACCESS
--- OUTSIDE RECORDS SUMMARY | 2024-05-05 17:56 | XMS_ITS | CONTINUITY OF CARE DOCUMENT ---
Author Name carolin coe Address Unknown Organization [facility] Address [address] [place] [address] Phone [phone] Care Team Providers Care Integrity Analyst Name Role Phone Tien Calero MD Unavailable [phone] SANJUANITA MENDOZA MD Unavailable [phone] SANJUANITA MENDOZA MD Unavailable [phone] INSURANCE PROVIDERS Payer name Policy type / Coverage type Sharon red libertarian ID [id number]
--- OUTSIDE RECORDS SUMMARY | 2024-05-05 17:56 | XMS_ITS | Patient Health Summary ---
Author Organization [facility] Address [address] [place] [address] Care Team Providers Care Hand Ornament Maker Name Role Phone Avelino Rico MD Primary Care Provider [phone] Note from [facility],non-owned Affiliates and Associated Physician Practices is amultiple site organization consisting of ambulatory clinics and hospital sitesin [place], [place], [place] and [place]. This disclosure is being madepursuant to the Care Everywhere program and may not contain all information available regarding this patient. Last updated 17.[facility] Allergies * Ibuprofen(Swelling) -Low Criticality Medications * [...] Comments Blood Pressure 126/78 03/23/2018 9:04 AM LINGO CLEANER Pulse 83 03/23/2018 9:04 AM LINGO CLEANER Temperature 37.1 C (98.8 F) 03/23/2018 9:04 AM LINGO CLEANER Respiratory Rate 18 03/23/2018 9:04 AM LINGO CLEANER Oxygen Saturation 99% 03/23/2018 9:04 AM LINGO CLEANER Inhaled Oxygen Concentration - - Weight 80.5 kg (177 lb 6.4 oz) 03/23/2018 9:04 A M LINGO CLEANER Height 185.4 cm (6' 1 ) 03/07/2018 9:28 AM LINGO CLEANER Body Mass Index 23.41 03/07/2018 9:28 AM LINGO CLEANER Procedures * PFT MAXIMAL INSPIRATORY/EXPIRATORY PRES(Performed 03/28/2018) [...] PFT MAXIMAL INSPIRATORY/EXPIRATORY PRES (03/28/2018 10:03 PM LINGO CLEANER) Impressions Allan Coronado MD - 03/28/2018 10:03 PM LINGO CLEANER DEPARTMENT OF PULMONARY, CRITICAL CARE, AND SLEEP MEDICINE PFT MAXIMAL INSPIRATORY/EXPIRATORY PRESSURES Please see technologist's comments mentioned in the report. INTERPRETATION: MIP is -129 cmH2O which is higher than LLN of -82. MEP is 151 cmH2O which is higher than LLN of 147. Shreyas Leija MD Pulmonary & Critical Care Fellow Division of Pulmonary, Critical Care and Sleep Medicine [facility] Pager: [phone] I have personally reviewed and agree with the fellow's interpretation. Allan Coronado MD Narrative Allan Coronado MD - 03/28/2018 10:03 PM LINGO CLEANER Shreyas Leija MD 03/28/2018 4:20 PM Gerson Tiwari MD PFT ORDERABLES * XR CHEST 2VW (03/23/2018 9:52 AM LINGO CLEANER) Only the most recent of4 resultswithin the time period is included. Anatomical Region Laterality Modality Chest Radiographic Lizbet ging 03/23/2018 9:56 AM LINGO CLEANER Impressions 03/23/2018 1:13 PM LINGO CLEANER IMPRESSION: No acute pulmonary process. Dictated by Vinod Walsh MD (resident care coordinator). Dr. EN Bassett have personally reviewed and interpreted this examination/study. This report was electronically signed by EN PATEL on 03/23/2018 1:13 PM . Narrative 03/23/2018 1:13 PM LINGO CLEANER EXAMINATION: XR CHEST 2VW HISTORY: 27-year-old with [...] pulmonary process. Dictated by Vinod Walsh MD (resident care coordinator). Dr. EN Bassett have personally reviewed and interpreted this examination/study. This report was electronically signed by EN PATEL on 03/23/2018 1:13 PM . Gerson Tiwari MD DIAGNOSTIC IMAGING O RDERABLES * FRACTIONAL EXHALED NITRIC OXIDE (03/20/2018 12:08 PM LINGO CLEANER) Impressions Natan Lu MD - 03/20/2018 12:08 PM LINGO CLEANER DEPARTMENT OF PULMONARY, CRITICAL CARE, AND SLEEP MEDICINE EXHALED NITRIC OXIDE (FeNO) Jose L Rivera 03/15/2018 INTERPRETATION The measurement of fractional exhaled nitric oxide (FENO) was 84 ppb. IMPRESSION: 1. High fractional exhaled nitric oxide. 2. No prior study to compare. Brenda Cota MD Pulmonary / Critical Care Fellow Division of Pulmonary, Critical Care, & Sleep Medicine [facility] I have personally reviewed the test data and agree with 's findings. Natan Lu MD 03/20/2018 Narrative Natan Lu MD - 03/20/2018 12:08 PM LINGO CLEANER Brenda Cota MD 03/15/2018 5:18 PM Procedure Note Brenda Cota MD - 03/15/2018 1:00 PM CST Images from the original note were not included. Gerson Tiwari MD RESPIRATORY THERAPY ORDERABLES * COMPLETE PFT W/WO BRONCHODILATOR (03/13/2018 9:35 PM LINGO CLEANER) Impressions Natan Lu MD - 03/13/2018 9:35 PM LINGO CLEANER DEPARTMENT OF PULMONARY, CRITICAL CARE, AND SLEEP [...] of Pulmonary, Critical Care, & Sleep Medicine [facility] I have personally reviewed the test data and agree with 's findings. Natan Lu MD 03/13/2018 Narrative Natan Lu MD - 03/13/2018 9:35 PM LINGO CLEANER Brenda Cota MD 03/13/2018 1:42 PM Gerson Tiwari MD RESPIRATORY THERAPY ORDERABLES * IMMUNOSCORE IGE INTERP (03/07/2018 10:37 AM LINGO CLEANER) [facility] Signature Immunocap Score See Note 9 1:35 PM LINGO CLEANER [employer] ([facility]) Comment: REFERENCE INTERVAL: Allergen, Interpretation Less than [...] clinical allergy or even anaphylaxis. Performed by [facility], [address] [place] [address],[place] [address] www.Done In :60 Seconds, Minor Meraz MD, Lab. Director Blood BLOOD SPECIMEN / Unknown Lab Venipuncture / Unknown 03/07/2018 10:37 AM LINGO CLEANER 03/07/2018 10:46 AM LINGO CLEANER Gerson Tiwari MD LAB - SEROLOGY ORDER [place] Character Booster [facility]) [address] [id number] * (ABNORMAL) ALLERGEN RESPIRATORY PROFILE ([place]) (03/07/2018 10:37 AM LINGO CLEANER) IgE Total 78 <=214 kU/L 03/11/2018 5:05 AM [facility] Character Booster ([facility]) Comment: REFERENCE INTERVAL: Immunoglobulin E, Serum Access complete set of age- and/or gender-specific reference intervals for this test in the [facility] Laboratory Test Directory (Done In :60 Seconds). Allergen Dermatophagoides farinae 0.43(H) <=0.34 kU/L 03/11/2018 5:05 AM [facility] Character Booster [facility]) Allergen Dermatophagoides pteronyssinus 0.13 <=0.34 kU/L 03/11/2018 5:05 AM [facility]) Allergen Cat Dander <0.10 <=0.34 kU/L 03/11/2018 5:05 AM [facility]) Allergen Dog Dander 0.13 <=0.34 kU/L 03/11/2018 5:05 AM [facility]) Allergen Bermuda Grass 0.13 <=0.34 kU/L 03/11/2018 5:05 AM [facility]) Allergen Ilir Grass 0.23 <=0.34 kU/L 03/11/2018 5:05 AM [facility] Character Booster [facility]) Allergen Cockroach St Lucian <0.10 <=0.34 kU/L 03/11/2018 5:[address] [facility]) Allergen Alternaria alternata 13.30(H) <=0.34 kU/L 03/11/2018 5:05 AM [facility]) Allergen A fumigatus IgE 4.92(H) <=0.34 kU/L 03/11/2018 5:[address] [facility]) Allergen Hormodendrum 1.56(H) <=0.34 kU/L 03/11/2018 5:05 AM [employer] [facility]ER [facility]) Allergen P. Notatum 3.01(H) <=0.34 kU/L 03/11/2018 5:05 AM LINGO CLEANER [facility]) Allergen [place] Maple 0.23 <=0.34 kU/L 03/11/2018 5:05 AM LINGO CLEANER [facility]) Allergen Lares Tree 0.24 <=0.34 kU/L 03/11/2018 5:05 AM LINGO CLEANER [facility]) Allergen Elm 0.38(H) <=0.34 kU/L 03/11/2018 5:05 AM LINGO CLEANER [facility]) Allergen [place] Tree 0.29 <=0.34 kU/L 03/11/2018 5:05 AM LINGO CLEANER [facility]) Allergen Mountain Simon 0.44(H) <=0.34 kU/L 03/11/2018 5:05 AM LINGO CLEANER [facility]) Allergen White [place] Tree IgE <0.10 <=0.34 kU/L 03/11/2018 5:05 AM LINGO CLEANER [facility]) Allergen Dix 0.19 <=0.34 kU/L 03/11/2018 5:05 AM LINGO CLEANER [facility]) Allergen Pecan Tree 0.10 <=0.34 kU/L 03/11/2018 5:05 AM LINGO CLEANER [facility]) Allergen [place] Tree 0.83(H) <=0.34 kU/L 03/11/2018 5:05 AM LINGO CLEANER [facility]) Allergen White Chu 1.43(H) <=0.34 kU/L 03/11/2018 5:05 AM LINGO CLEANER [facility]) Allergen Rough Pigweed 0.40(H) <=0.34 kU/L 03/11/2018 5:05 AM LINGO CLEANER [facility]) Allergen Common Ragweed 0.39(H) <=0.34 kU/L 03/11/2018 5:05 AM LINGO CLEANER [facility]) Allergen Scott Elder 0.22 <=0.34 kU/L 03/11/2018 5:05 AM LINGO CLEANER [facility]) Allergen English Thistle 0.15 <=0.34 kU/L 03/11/2018 5:05 AM LINGO CLEANER [facility] ([facility]) Allergen Mouse <0.10 <=0.34 kU/L 03/11/2018 5:05 AM LINGO CLEANER [facility] ([facility]) Allergen Mucor racemosus 0.20 <=0.34 kU/L 03/11/2018 5:05 AM LINGO CLEANER [facility] ([facility]) Allergen Peanut <0.10 <=0.34 kU/L 03/11/2018 5:05 AM LINGO CLEANER [facility] ([facility]) Allergen Milk (Cow) <0.10 <=0.34 kU/L 03/11/2018 5:05 AM LINGO CLEANER [facility] ([facility]) Comment: Performed by [facility], [address] [place] [address] www.Done In :60 Seconds, Minor Meraz MD, Lab. Director Blood BLOOD SPECIMEN / Unknown Lab Venipuncture / Unknown 03/07/2018 10:37 AM LINGO CLEANER 03/07/2018 10:46 AM LINGO CLEANER Gerson Tiwari MD LAB - CHEMISTRY SHAMAR HERMOSILLO Performing Organization Address City/[facility]/ZIP Co de Phone Number [facility] Character [employer] ([facility]) [address] [place] [address] * IGE BLOOD (03/07/2018 10:37 AM LINGO CLEANER) [facility] IgE 74 0 - 100 IU/mL 03/10/2018 4:25 PM LINGO CLEANER [facility] ([facility]) Blood BLOOD SPECIMEN / Unknown Lab Venipuncture / Unknown 03/07/2018 10:37 AM LINGO CLEANER 03/07/2018 10:46 AM LINGO CLEANER Narrative [facility] ([facility]) - 03/10/2018 4:25 PM LINGO CLEANER Performed at: [address] [id number] Lithographic Proofer: Gloria Wilkerson MD, Phone: [phone] Gerson Tiwari MD LAB - CHEMISTRY SHAMAR HERMOSILLO [facility] ([facility]) [address] [place] [address], [facility] * (ABNORMAL) CBC W AUTO DIFFERENTIAL (05/07/2014 6:10 AM CDT) Only the most recent of6 resultswithin the time period is included. WBC 7.8 3.5 - 10.5 10 3/uL [facility] RBC 5.62 4.30 - 5.70 10 6/uL [facility] Hemoglobin 13.3(L) 13.5 - 17.5 g/dL [facility] Hematocrit 40.5 39.0 - 50.0 % [facility] MCV 72.1(L) 81.0 - 97.0 fL [facility] MCH 23.7(L) 28.0 - 34.0 pg [facility] MCHC 32.8 32.0 - 36.0 g/dL [facility] Platelet Count 185 150 - 400 10 3/uL [facility] RDW-SD 38.3 36.0 - 50.0 fL [facility] RDW-CV 14.8 11.2 - 14.8 % [facility] MPV 9.8 9.3 - 12.8 fL [facility] Neutrophils % 63.3 35.0 - 70.0 % [facility] Lymphocytes % 25.4 19.7 - 55.1 % [facility] Monocytes % 10.2 3.0 - 15.0 % [facility] Eosinophils % 1.0 0.0 - 6.0 % [facility] Basophil % 0.1 0.0 - 1.5 % [facility] Neutrophils Absolute 4.9 1.6 - 7.0 10 3/uL [facility] Lymphocyte Absolute 2.0 0.8 - 2.9 10 3/uL [facility] Monocytes Absolute 0.79(H) 0.14 - 0.66 10 3/uL [facility] Eosinophils Absolute 0.08 0.00 - 0.22 10 3/uL [facility] Basophils Absolute 0.01 0.00 - 0.06 10 3/uL [facility] Immature Granulocytes % 0.1 0.0 - 1.0 % [facility] Blood specimen (specimen) BLOOD SPECIMEN / Unknown 05/07/2014 6:10 AM CDT 05/07/2014 6:16 AM CDT Mook Sweet MD LAB - HEMATOLOGY OR DERABLES [address] [phone] * BASIC METABOLIC PANEL (CALCIUM TOTAL) (05/07/2014 6:10 AM CDT) Only the most recent of3 resultswithin the time period is included. BUN 12 7 - 26 mg/dL [facility] Creatinine 0.9 0.6 - 1.2 mg/dL [facility] Sodium 140 136 - 145 mmol/L [facility] Potassium 3.8 3.5 - 4.5 mmol/L [facility] Chloride 106 98 - 107 mmol/L [facility] CO2 24 22 - 29 mmol/L [facility] Glucose 104 70 - 115 mg/dL [facility] Calcium 9.1 8.4 - 10.2 mg/dL [facility] Anion Gap 14 8 - 18 [facility] BUN/Creatinine Ratio 13 7 - 23 [facility] Osmolality Calculated 275 270 - 300 mOsm/kg [facility] eGFR >60 >60 mL/min/1.7 3 m2 [facility] Blood specimen (specimen) BLOOD SPECIMEN / Unknown 05/07/2014 6:10 AM CDT 05/07/2014 6:16 AM CDT Mook Sweet MD LAB - CHEMISTRY ORD ERABLES Performing Organization Address City/[facility] Co de Phone Number [address] [phone] * MAGNESIUM BLOOD (05/07/2014 6:10 AM CDT) Only the most recent of3 resultswithin the time period is included. Magnesium 1.9 1.6 - 2.6 mg/dL [facility] Blood specimen (specimen) BLOOD SPECIMEN / Unknown 05/07/2014 6:10 AM CDT 05/07/2014 6:16 AM CDT Mook Sweet MD LAB - CHEMISTRY ORD ERABLES Performing Organization Address City/[facility] [place] [address], [facility] [phone] * INFLUENZA A+B PCR (05/05/2014 10:17 PM CDT) [facility] Influenza A Non subtyped Not Detected Not Detected [facility] Influenza B Not Detected Not Detected [facility] Respiratory Syncytial Virus Not Detected Not Detected [facility] RSV B Not Detected Not Detected [facility] Nasopharyngeal NASOPHARYNGEAL SWAB / Unknown 05/05/2014 10:17 PM CDT 05/06/2014 10:21 PM CDT Narrative [facility] - 05/07/2014 1:03 AM CDT Assay performed by [employer]. NOTE: Negative results for Influenza A, Influenza B or RSV do not preclude influenza virus or RSV infection and should not be used as the sole basis for diagnosis, treatment or patient management decisions. Mook Sweet MD LAB - MICROBIOLOGY ORDERABLES Performing Organization Address [facility] [place] [address], [facility] [phone] * INFLUENZA A+B ANTIGEN RAPID (05/05/2014 10:17 PM CDT) [facility] Influenza A Rapid Test Negative Negative [facility] Influenza B Rapid Test Negative Negative [facility] Nasopharyngeal SPECIMEN FROM NASOPHARYNGEAL STRUCTURE / Unknown 05/05/2014 10:17 PM CDT 05/05/2014 10:32 PM CDT Narrative [facility] - 05/05/2014 10:54 PM CDT Specimen Type->Nasopharyngeal If clinical conditions warrant, molecular testing for Influenza offers superior sensitivity (>98%) and is available by ordering INFLUENZA/RSV MAY [[id number]]. To add to current sample within [address] an electronic or signed manual requisition order and call the [facility] at [phone] with your request. The positive and negative predictive values of rapid influenza testing vary considerably depending upon the prevalence on influenza in the community. *False-positive results are more likely to occur when disease prevalence is low. *False-negative results are more likely to occur when disease prevalence is high. *Current local influenza prevalence can be obtained by calling the Director of Microbiology at [phone]. Herminia Simon MD LAB - MICROBIOLOGY O KULDEEP Performing Organization Address City/[facility]/[place] [address], [facility] [phone] * LACTIC ACID WHOLE BLOOD (05/05/2014 9:57 PM CDT) Lactic Acid Whole Blood 2.7 0.5 - 3.4 mmol/L [facility] Blood specimen (specimen) BLOOD SPECIMEN / Unknown 05/05/2014 9:57 PM CDT 05/05/2014 9:57 PM CDT Herminia Simon MD LAB - CHEMISTRY SHAMAR HERMOSILLO Performing Organization Address [facility] Co de Phone Number [address] [phone] * CULTURE BLOOD (05/05/2014 9:33 PM CDT) Only the most recent of2 resultswithin the time period is included. Pathologist [facility] Culture Blood No Growth at 5 days [facility] Blood specimen (specimen) BLOOD SPECIMEN / Unknown 05/05/2014 9:33 PM CDT 05/05/2014 10:13 PM CDT Narrative [facility] - 05/10/2014 10:15 PM CDT Draw 15 minutes after Culture 1 from a different site Specimen Type->Blood Herminia Simon MD LAB - MICROBIOLOGY O [place] Performing Organization Address [facility]/[place] [address], [facility] [phone] * (ABNORMAL) CBC W/O DIFFERENTIAL (05/05/2014 9:29 PM CDT) WBC 9.7 3.5 - 10.5 10 3/uL [facility] RBC 6.29(H) 4.30 - 5.70 10 6/uL [facility] Hemoglobin 14.8 13.5 - 17.5 g/dL [facility] Hematocrit 45.8 39.0 - 50.0 % [facility] MCV 72.8(L) 81.0 - 97.0 fL [facility] MCH 23.5(L) 28.0 - 34.0 pg [facility] MCHC 32.3 32.0 - 36.0 g/dL [facility] Platelet Count 211 150 - 400 10 3/uL [facility] RDW-SD 38.2 36.0 - 50.0 fL [facility] RDW-CV 14.6 11.2 - 14.8 % [facility] MPV 10.2 9.3 - 12.8 fL [facility] nRBC Absolute 0.00 0 10 3/uL [facility] nRBC Auto 0.0 0 /100 WBC [facility] Blood specimen (specimen) BLOOD SPECIMEN / Unknown 05/05/2014 9:29 PM CDT 05/05/2014 9:40 PM CDT Herminia Simon MD LAB - HEMATOLOGY ORD ERABLES Performing Organization Address City/State/[facility] Co de Phone Number [address] [phone] * STREP A SCREEN DIRECT (05/03/2014 12:52 PM CDT) [facility] Rapid Strep A Screen Negative Negative [facility] Throat swab (specimen) ENTIRE THROAT (SURFACE REGION OF NECK) / Unknown 05/03/2014 12:52 PM CDT 05/03/2014 12:54 PM CDT Narrative [facility] - 05/03/2014 1:06 PM CDT Specimen Type->Throat Swab Rapid test for Group A Beta Streptococcus is NEGATIVE. A Negative, Direct Test for Group A Streptococcus will be followed with a confirmatory Throat Culture when 2 swabs have been submitted. Roro Holguin MD LAB - MICROBIOLOGY ORDERABLES Performing Organization Address City/[facility]/ZIP Co de Phone Number [address] [phone] * CULTURE STREP GROUP A (05/03/2014 12:52 PM CDT) Pathologist [facility] Culture Beta Strep No Growth of Groups A, C or G Beta Streptococc us. [facility] Throat swab (specimen) ENTIRE THROAT (SURFACE REGION OF NECK) / Unknown 05/03/2014 12:52 PM CDT 05/03/2014 1:06 PM CDT Roro Holguin MD LAB - MICROBIOLOGY ORDERABLES [address] [phone] * PHOSPHORUS BLOOD (07/04/2013 2:30 AM CDT) [facility] Phosphorus 3.2 2.3 - 4.7 mg/dL [facility] Blood specimen (specimen) BLOOD SPECIMEN / Unknown 07/04/2013 2:30 AM CDT 07/04/2013 3:09 AM CDT Sara More MD LAB - CHEMISTRY [place] Performing Organization Address [facility]/ZIP Co de Phone Number [address] [phone] * (ABNORMAL) HEPATIC FUNCTION PANEL (07/04/2013 2:30 AM CDT) [facility] Bilirubin Conjugated 0.3 0.0 - 0.5 mg/dL [facility] Bilirubin Unconjugated 0.3 Unconjugated Bilirubin is a calculated value: Reference ranges have not been established. mg/dL [facility] Albumin/Globulin Ratio 1.0(L) 1.1 - 2.3 [facility] Protein Total 7.5 6.0 - 8.3 g/dL [facility] Albumin 3.7 3.4 - 5.0 g/dL [facility] Bilirubin Total 0.6 0.2 - 1.2 mg/dL [facility] Alkaline Phosphatase 94 40 - 150 Units/L [facility] ALT 20 0 - 55 Units/L [facility] AST 23 5 - 34 Units/L [facility] Blood specimen (specimen) BLOOD SPECIMEN / Unknown 07/04/2013 2:30 AM CDT 07/04/2013 3:09 AM CDT Sara More MD LAB - CHEMISTRY SHAMAR HERMOSILLO [facility] [address] [phone] * EKG 12-LEAD (07/04/2013 12:00 AM CDT) [facility] EKG [facility] RADIOLOG[facility] Comment: Exam Date/Time: Jul 04 2013 [...] available Confirmed by MD Carole, Penny ([id number]), editorial specialist Sylvia Lester ([id number]) on 07/10/2013 2:56:54 PM Referred By: MARIAM Confirmed By:Penny Lam MD 07/04/2013 Sara More MD ECG ORDERABLES Performing Organization Address [facility]/ZIP Co de Phone Number [facility] * (ABNORMAL) COMPREHENSIVE METABOLIC PANEL (07/03/2013 2:10 PM CDT) Pathologist [facility] BUN 11 7 - 26 mg/dL [facility] Anion Gap 17 8 - 18 [facility] BUN/Creatinine Ratio 11 7 - 23 [facility] Osmolality Calculated 275 270 - 300 mOsm/kg [facility] Albumin/Globulin Ratio 1.0(L) 1.1 - 2.3 [facility] Creatinine 1.0 0.6 - 1.2 mg/dL [facility] Sodium 141 136 - 145 mmol/L [facility] Potassium 4.4 3.5 - 4.5 mmol/L [facility] Chloride 104 98 - 107 mmol/L [facility] CO2 24 22 - 29 mmol/L [facility] Glucose 60(L) 70 - 115 mg/dL [facility] Calcium 9.4 8.4 - 10.2 mg/dL [facility] Protein Total 7.8 6.0 - 8.3 g/dL [facility] Albumin 3.9 3.4 - 5.0 g/dL [facility] Bilirubin Total 1.4(H) 0.2 - 1.2 mg/dL [facility] Alkaline Phosphatase 90 40 - 150 Units/L [facility] ALT 19 0 - 55 Units/L [facility] AST 28 5 - 34 Units/L [facility] eGFR >60 >60 mL/min/1.7 3 m2 [facility] Blood specimen (specimen) BLOOD SPECIMEN / Unknown 07/03/2013 2:10 PM CDT 07/03/2013 2:12 PM CDT Ed Peres MD LAB - CHEMISTRY SHAMAR HERMOSILLO [facility] Organization Address City/State/[facility] Co de Phone Number [address] [phone] * XR ANKLE 3+ VW RIGHT (01/27/2011 6:54 PM LINGO CLEANER) Anatomical Region Laterality Modality Lower Extremity Radiographic Lizbet ging 01/27/2011 6:58 PM LINGO CLEANER Narrative 01/27/2011 6:58 PM LINGO CLEANER RIGHT ANKLE INDICATION: Right ankle pain after [...] abnormality. Orlin Duval MD DIAGNOSTIC IMAGING O [facility] Care Teams Hand Ornament Maker Relationship Specialty Start Date End Date Avelino Rico MD [facility] [address] [place] [address] PCP - General 03/23/18
--- OUTSIDE RECORDS SUMMARY | 2024-05-05 17:56 | XMS_ITS | Referral Summary ---
Author Organization [facility] Address [address] [place] [address] Care Team Providers Care Preparer Samples And Repairs Name Role Phone Avelino Rico MD Primary Care Provider [phone] Source Comments [facility],non-owned Affiliates and Associated Physician Practices is amultiple site organization consisting of ambulatory clinics and hospital sitesin [place], [place], [place] and [place]. This disclosure is being madepursuant to the Care Everywhere program and may not contain all information available regarding this patient. Last updated 17.[facility] Allergies Active Allergy Reactions Criticality Noted Date [...] Comments Blood Pressure 126/78 03/23/2018 9:04 AM CLERICAL AIDE Pulse 83 03/23/2018 9:04 AM CLERICAL AIDE Temperature 37.1 C (98.8 F) 03/23/2018 9:04 AM CLERICAL AIDE Respiratory Rate 18 03/23/2018 9:04 AM CLERICAL AIDE Oxygen Saturation 99% 03/23/2018 9:04 AM CLERICAL AIDE Inhaled Oxygen Concentration - - Weight 80.5 kg (177 lb 6.4 oz) 03/23/2018 9:04 A M CLERICAL AIDE Height 185.4 cm (6' 1 ) 03/07/2018 9:28 AM CLERICAL AIDE Body Mass Index 23.41 03/07/2018 9:28 AM CLERICAL AIDE Plan of Treatment Not on file Care Teams Preparer Samples And Repairs Relationship Specialty Start Date End Date Avelino Rico MD [address] [place] [address] PCP - General 03/23/18
--- OUTSIDE RECORDS SUMMARY | 2024-05-05 17:56 | XMS_ITS | Encounter Summary ---
Author Organization [facility] Address [address] [address] Care Team Providers Care Creative Specialist Name Role Phone Avelino Rico MD Primary Care Provider [phone] Reason for Visit * Reason Onset Date Comments Pulmonary Function Test 09/21/2018 Encounter Details Date Type Department Care Team (Late st Contact Info) Description 09/21/2018 Telephone [facility] [address] [place] [address] Alyssa Garcia Pulmonary Function Test Social History [...] on filedocumented in this encounter Care Teams Creative Specialist Relationship Specialty Start Date End Date Avelino Rico MD [address] [place] [id number] PCP - General 03/23/18 documented as of this encounter
--- OUTSIDE RECORDS SUMMARY | 2024-05-05 17:56 | XMS_ITS | Clinical Summary ---
Author Organization [facility] Address [address] [place] [address] Care Team Providers Care Crepe Box Tender Name Role Phone Avelino Rico MD Primary Care Provider [phone] Source Comments [facility],non-owned Affiliates and Associated Physician Practices is amultiple site organization consisting of ambulatory clinics and hospital sitesin [place], [place], [place] and [place]. This disclosure is being madepursuant to the Care Everywhere program and may not contain all information available regarding this patient. Last updated 17.[facility] Allergies Active Allergy Reactions Criticality Noted Date [...] Comments Blood Pressure 126/78 03/23/2018 9:04 AM GARDEN LABOURER Pulse 83 03/23/2018 9:04 AM GARDEN LABOURER Temperature 37.1 C (98.8 F) 03/23/2018 9:04 AM GARDEN LABOURER Respiratory Rate 18 03/23/2018 9:04 AM GARDEN LABOURER Oxygen Saturation 99% 03/23/2018 9:04 AM GARDEN LABOURER Inhaled Oxygen Concentration - - Weight 80.5 kg (177 lb 6.4 oz) 03/23/2018 9:04 A M GARDEN LABOURER Height 185.4 cm (6' 1 ) 03/07/2018 9:28 AM GARDEN LABOURER Body Mass Index 23.41 03/07/2018 9:28 AM GARDEN LABOURER Plan of Treatment Health Maintenance Due Date [...] to complete this topic MENINGOCOCCAL (Group B) VACC INE SHARED DECISION-MAKING Aged Out No longer eligibl e based on patient's age to complete this topic MENINGOCOCCAL GROUPS A/C/Y/W VACCINE Aged Out No longer eligible b ased on patient's age to complete this topic PNEUMOCOCCAL VACCINE Aged Out No long er eligible based on patient's age to complete this topic Care Teams Crepe Box Tender Relationship Specialty Start Date End Date Avelino Rico MD [address] [place] [address] PCP - General 03/23/18
--- OUTSIDE RECORDS SUMMARY | 2024-05-05 17:56 | XMS_ITS | Clinical Summary ---
Author Organization [facility] Address [address] [place] [id number] Care Team Providers Care Inspector Plating Name Role Phone Avelino Rico MD Primary Care Provider [phone] Allergies Active Allergy Reactions Criticality Noted Date [...] patient's age to complete this topic Insurance [facility] AETNA SIGNATURE [facility] PLAN [facility] Care Teams Inspector Plating Relationship Specialty Start Date End Date Avelino Rico MD PCP - General Emergency Medicine 09/03/20
[2024-05-05 18:06] VITALS: BP 125/83; PULSE 100; RESP 20; TEMP 37.2; O2SAT 97
[2024-05-05 18:53] LABS: Influenza A QL RT-PCR Positive (Negative); Influenza B QL RT-PCR Negative (Negative); RSV RNA, RT-PCR Negative (Negative); SARS-CoV-2 RNA PCR Negative (Negative)
--- OUTSIDE RECORDS SUMMARY | 2024-05-05 19:22 | XMS_ITS | CONTINUITY OF CARE DOCUMENT ---
Author Name carolin coe Address Unknown Organization [facility] Address [address] [place] [address] Phone [phone] Care Team Providers Care Life Insurance Sales Name Role Phone Tien Calero MD Unavailable [phone] SANJUANITA MENDOZA MD Unavailable [phone] SANJUANITA MENDOZA MD Unavailable [phone] INSURANCE PROVIDERS Payer name Policy type / Coverage type [place] red constitution party ID [id number]
--- OUTSIDE RECORDS SUMMARY | 2024-05-05 19:23 | XMS_ITS | Referral Summary ---
Author Organization [facility] Address [address] [place] [id number] Care Team Providers Care Terrazzo Worker Name Role Phone Avelino Rico MD Primary Care Provider [phone] Allergies Active Allergy Reactions Criticality Noted Date [...] Plan of Treatment Not on file Insurance [facility] AETNA SIGNATURE [facility] [place] [facility] [place] [place] Care Teams Terrazzo Worker Relationship Specialty Start Date End Date Avelino Rico MD PCP - General Emergency Medicine 09/03/20
--- OUTSIDE RECORDS SUMMARY | 2024-05-05 19:23 | XMS_ITS | Clinical Summary ---
Author Organization [facility] Address [address] [place] [address] Care Team Providers Care Grounds Worker Name Role Phone Unavailable Primary Care Provider [...] Comments Blood Pressure 121/80 03/02/2021 3:37 PM OIL WELL SERVICES SUPERVISOR Pulse 72 03/02/2021 3:37 PM OIL WELL SERVICES SUPERVISOR Temperature - - Respiratory Rate - - Oxygen Saturation 98% 03/02/2021 3:37 PM OIL WELL SERVICES SUPERVISOR Inhaled Oxygen Concentration - - Weight 85 kg (187 lb 8 oz) 03/02/2021 3:37 PM CS T Height 188 cm (6' 2 ) 03/02/2021 3:37 PM OIL WELL SERVICES SUPERVISOR Body Mass Index 24.07 03/02/2021 3:37 PM OIL WELL SERVICES SUPERVISOR Plan of Treatment Health Maintenance Due Date Last Done Comments DTAP/TDAP/TD VACCINES (1 - Tdap) 11/11/2010 HEPATITIS B VACCINES (1 of 3 - 19+ 3-dose series) 11/11/2010 INFLUENZA VACCINE (#1) 2023 HPV VACCINES Aged Out No longer eligi ble based on patient's age to complete this topic Insurance OPEN ACCESS
--- OUTSIDE RECORDS SUMMARY | 2024-05-05 19:23 | XMS_ITS | Patient Health Summary ---
Author Organization [facility] Address [address] [place] [address] Care Team Providers Care Textile Colorist Dyer Name Role Phone Avelino Rico MD Primary Care Provider [phone] Note from [facility],non-owned Affiliates and Associated Physician Practices is amultiple site organization consisting of ambulatory clinics and hospital sitesin [place], [place], [place] and [place]. This disclosure is being madepursuant to the Care Everywhere program and may not contain all information available regarding this patient. Last updated 17.[facility] Allergies * Ibuprofen(Swelling) -Low Criticality Medications [...] Comments Blood Pressure 126/78 03/23/2018 9:04 AM SHOWER ATTENDANT Pulse 83 03/23/2018 9:04 AM SHOWER ATTENDANT Temperature 37.1 C (98.8 F) 03/23/2018 9:04 AM SHOWER ATTENDANT Respiratory Rate 18 03/23/2018 9:04 AM SHOWER ATTENDANT Oxygen Saturation 99% 03/23/2018 9:04 AM SHOWER ATTENDANT Inhaled Oxygen Concentration - - Weight 80.5 kg (177 lb 6.4 oz) 03/23/2018 9:04 A M SHOWER ATTENDANT Height 185.4 cm (6' 1 ) 03/07/2018 9:28 AM SHOWER ATTENDANT Body Mass Index 23.41 03/07/2018 9:28 AM SHOWER ATTENDANT Procedures * PFT MAXIMAL INSPIRATORY/EXPIRATORY PRES(Performed 03/28/2018) [...] PFT MAXIMAL INSPIRATORY/EXPIRATORY PRES (03/28/2018 10:03 PM SHOWER ATTENDANT) Impressions Allan Coronado MD - 03/28/2018 10:03 PM SHOWER ATTENDANT [facility] DEPARTMENT OF PULMONARY, CRITICAL CARE, AND SLEEP MEDICINE PFT MAXIMAL INSPIRATORY/EXPIRATORY PRESSURES Please see technologist's comments mentioned in the report. INTERPRETATION: MIP is -129 cmH2O which is higher than LLN of -82. MEP is 151 cmH2O which is higher than LLN of 147. Shreyas Leija MD Pulmonary & Critical Care Fellow Division of Pulmonary, Critical Care and Sleep Medicine [facility] Pager: [phone] I have personally reviewed and agree with the fellow's interpretation. Allan Coronado MD Narrative Allan Coronado MD - 03/28/2018 10:03 PM SHOWER ATTENDANT Shreyas Leija MD 03/28/2018 4:20 PM Gerson Tiwari MD PFT ORDERABLES * XR CHEST 2VW (03/23/2018 9:52 AM SHOWER ATTENDANT) Only the most recent of4 resultswithin the time period is included. Anatomical Region Laterality Modality Chest Radiographic Lizbet ging 03/23/2018 9:56 AM SHOWER ATTENDANT Impressions 03/23/2018 1:13 PM SHOWER ATTENDANT IMPRESSION: No acute pulmonary process. Dictated by Vinod Walsh MD (residential program director). Dr. EN Bassett have personally reviewed and interpreted this examination/study. This report was electronically signed by EN PATEL on 03/23/2018 1:13 PM . Narrative 03/23/2018 1:13 PM SHOWER ATTENDANT EXAMINATION: XR CHEST 2VW HISTORY: 27-year-old with [...] pulmonary process. Dictated by Vinod Walsh MD (residential program director). Dr. EN Bassett have personally reviewed and interpreted this examination/study. This report was electronically signed by EN PATEL on 03/23/2018 1:13 PM . Gerson Tiwari MD DIAGNOSTIC IMAGING O RDERABLES * FRACTIONAL EXHALED NITRIC OXIDE (03/20/2018 12:08 PM SHOWER ATTENDANT) Impressions Natan Lu MD - 03/20/2018 12:08 PM SHOWER ATTENDANT [facility] DEPARTMENT OF PULMONARY, CRITICAL CARE, AND SLEEP MEDICINE EXHALED NITRIC OXIDE (FeNO) Jose L Rivera 03/15/2018 INTERPRETATION The measurement of fractional exhaled nitric oxide (FENO) was 84 ppb. IMPRESSION: 1. High fractional exhaled nitric oxide. 2. No prior study to compare. Brenda Cota MD Pulmonary / Critical Care Fellow Division of Pulmonary, Critical Care, & Sleep Medicine [facility] I have personally reviewed the test data and agree with 's findings. Natan Lu MD 03/20/2018 Narrative Natan Lu MD - 03/20/2018 12:08 PM SHOWER ATTENDANT Brenda Cota MD 03/15/2018 5:18 PM Procedure Note Brenda Cota MD - 03/15/2018 1:00 PM CST Images from the original note were not included. Gerson Tiwari MD RESPIRATORY THERAPY ORDERABLES * COMPLETE PFT W/WO BRONCHODILATOR (03/13/2018 9:35 PM SHOWER ATTENDANT) Impressions Natan Lu MD - 03/13/2018 9:35 PM SHOWER ATTENDANT [facility] DEPARTMENT OF PULMONARY, CRITICAL CARE, AND SLEEP [...] of Pulmonary, Critical Care, & Sleep Medicine [facility] I have personally reviewed the test data and agree with 's findings. Natan Lu MD 03/13/2018 Narrative Natan Lu MD - 03/13/2018 9:35 PM SHOWER ATTENDANT Brenda Cota MD 03/13/2018 1:42 PM Gerson Tiwari MD RESPIRATORY THERAPY ORDERABLES * IMMUNOSCORE IGE INTERP (03/07/2018 10:37 AM SHOWER ATTENDANT) [facility] Signature Immunocap Score See Note 9 1:35 PM SHOWER ATTENDANT [employer] ([facility]) Comment: REFERENCE INTERVAL: Allergen, Interpretation [...] clinical allergy or even anaphylaxis. Performed by [employer], [address] [place] [address],[place] [id number] [email or web address], Minor Meraz MD, Lab. Director Blood BLOOD SPECIMEN / Unknown Lab Venipuncture / Unknown 03/07/2018 10:37 AM SHOWER ATTENDANT 03/07/2018 10:46 AM SHOWER ATTENDANT Gerson Tiwari MD LAB - SEROLOGY ORDER [facility] Social Project [facility]) [address] [id number] * (ABNORMAL) ALLERGEN RESPIRATORY PROFILE ([place]) (03/07/2018 10:37 AM SHOWER ATTENDANT) IgE Total 78 <=214 kU/L 03/11/2018 5:05 AM [facility] [employer] ([facility]) Comment: REFERENCE INTERVAL: Immunoglobulin E, Serum Access complete set of age- and/or gender-specific reference intervals for this test in the [facility] Laboratory Test Directory ([employer]). Allergen Dermatophagoides farinae 0.43(H) <=0.34 kU/L 03/11/2018 5:05 AM [facility] Social Project [facility]) Allergen Dermatophagoides pteronyssinus 0.13 <=0.34 kU/L 03/11/2018 5:05 AM [facility]) Allergen Cat Dander <0.10 <=0.34 kU/L 03/11/2018 5:05 AM [facility]) Allergen Dog Dander 0.13 <=0.34 kU/L 03/11/2018 5:05 AM [facility]) Allergen Bermuda Grass 0.13 <=0.34 kU/L 03/11/2018 5:05 AM [facility]) Allergen Ilir Grass 0.23 <=0.34 kU/L 03/11/2018 5:05 AM [facility] Social Project [facility]) Allergen Cockroach New Zealander <0.10 <=0.34 kU/L 03/11/2018 5:05 AM [facility]) Allergen Alternaria alternata 13.30(H) <=0.34 kU/L 03/11/2018 5:05 AM [facility]) Allergen A fumigatus IgE 4.92(H) <=0.34 kU/L 03/11/2018 5:05 AM [facility]) Allergen Hormodendrum 1.56(H) <=0.34 kU/L 03/11/2018 5:05 AM SHOWER ATTENDANT [facility]) Allergen P. Notatum 3.01(H) <=0.34 kU/L 03/11/2018 5:05 AM SHOWER ATTENDANT [facility]) Allergen Wright Maple 0.23 <=0.34 kU/L 03/11/2018 5:05 AM SHOWER ATTENDANT [facility]) Allergen Bowman Tree 0.24 <=0.34 kU/L 03/11/2018 5:05 AM SHOWER ATTENDANT [facility]) Allergen Elm 0.38(H) <=0.34 kU/L 03/11/2018 5:05 AM SHOWER ATTENDANT [facility]) Allergen [place] Tree 0.29 <=0.34 kU/L 03/11/2018 5:05 AM SHOWER ATTENDANT [facility]) Allergen Mountain [place] 0.44(H) <=0.34 kU/L 03/11/2018 5:05 AM SHOWER ATTENDANT [facility]) Allergen White [place] Tree IgE <0.10 <=0.34 kU/L 03/11/2018 5:05 AM SHOWER ATTENDANT [facility]) Allergen [place] 0.19 <=0.34 kU/L 03/11/2018 5:05 AM SHOWER ATTENDANT [facility]) Allergen Pecan Tree 0.10 <=0.34 kU/L 03/11/2018 5:05 AM SHOWER ATTENDANT [facility]) Allergen [place] Tree 0.83(H) <=0.34 kU/L 03/11/2018 5:05 AM SHOWER ATTENDANT [facility]) Allergen White Chu 1.43(H) <=0.34 kU/L 03/11/2018 5:05 AM SHOWER ATTENDANT [facility]) Allergen Rough Pigweed 0.40(H) <=0.34 kU/L 03/11/2018 5:05 AM SHOWER ATTENDANT [facility]) Allergen Common Ragweed 0.39(H) <=0.34 kU/L 03/11/2018 5:05 AM SHOWER ATTENDANT [facility]) Allergen Scott Elder 0.22 <=0.34 kU/L 03/11/2018 5:05 AM SHOWER ATTENDANT [facility]) Allergen Indian Thistle 0.15 <=0.34 kU/L 03/11/2018 5:05 AM SHOWER ATTENDANT [facility] ([facility]) Allergen Mouse <0.10 <=0.34 kU/L 03/11/2018 5:05 AM SHOWER ATTENDANT [facility] ([facility]) Allergen Mucor racemosus 0.20 <=0.34 kU/L 03/11/2018 5:05 AM SHOWER ATTENDANT [facility] ([facility]) Allergen Peanut <0.10 <=0.34 kU/L 03/11/2018 5:05 AM SHOWER ATTENDANT [facility] ([facility]) Allergen Milk (Cow) <0.10 <=0.34 kU/L 03/11/2018 5:05 AM SHOWER ATTENDANT [facility] ([facility]) Comment: Performed by [employer], [address] [place] [address] [email or web address], Minor Meraz MD, Lab. Director Blood BLOOD SPECIMEN / Unknown Lab Venipuncture / Unknown 03/07/2018 10:37 AM SHOWER ATTENDANT 03/07/2018 10:46 AM SHOWER ATTENDANT Gerson Tiwari MD LAB - CHEMISTRY SHAMAR HERMOSILLO Performing Organization Address City/[facility]/ZIP Co de Phone Number [facility] [employer] ([facility]) [address] [place] [address] * IGE BLOOD (03/07/2018 10:37 AM SHOWER ATTENDANT) [facility] IgE 74 0 - 100 IU/mL 03/10/2018 4:25 PM SHOWER ATTENDANT [facility] ([facility]) Blood BLOOD SPECIMEN / Unknown Lab Venipuncture / Unknown 03/07/2018 10:37 AM SHOWER ATTENDANT 03/07/2018 10:46 AM SHOWER ATTENDANT Narrative [facility] ([facility]) - 03/10/2018 4:25 PM SHOWER ATTENDANT Performed at: [address] - [address] [id number] Culinary Director: Gloria Wilkerson MD, Phone: [phone] Gerson Tiwari MD LAB - CHEMISTRY SHAMAR HERMOSILLO [facility] ([facility]) [address] [place] [address], [facility] * (ABNORMAL) CBC W AUTO DIFFERENTIAL (05/07/2014 6:10 AM CDT) Only the most recent of6 resultswithin the time period is included. WBC 7.8 3.5 - 10.5 10 3/uL [facility] RBC 5.62 4.30 - 5.70 10 6/uL [facility] Hemoglobin 13.3(L) 13.5 - 17.5 g/dL [facility] Hematocrit 40.5 39.0 - 50.0 % [facility] MCV 72.1(L) 81.0 - 97.0 fL [facility] MCH 23.7(L) 28.0 - 34.0 pg [facility] MCHC 32.8 32.0 - 36.0 g/dL [facility] Platelet Count 185 150 - 400 10 3/uL [facility] RDW-SD 38.3 36.0 - 50.0 fL [facility] RDW-CV 14.8 11.2 - 14.8 % [facility] MPV 9.8 9.3 - 12.8 fL [facility] Neutrophils % 63.3 35.0 - 70.0 % [facility] Lymphocytes % 25.4 19.7 - 55.1 % [facility] Monocytes % 10.2 3.0 - 15.0 % [facility] Eosinophils % 1.0 0.0 - 6.0 % [facility] Basophil % 0.1 0.0 - 1.5 % [facility] Neutrophils Absolute 4.9 1.6 - 7.0 10 3/uL [facility] Lymphocyte Absolute 2.0 0.8 - 2.9 10 3/uL [facility] Monocytes Absolute 0.79(H) 0.14 - 0.66 10 3/uL [facility] Eosinophils Absolute 0.08 0.00 - 0.22 10 3/uL [facility] Basophils Absolute 0.01 0.00 - 0.06 10 3/uL [facility] Immature Granulocytes % 0.1 0.0 - 1.0 % [facility] Blood specimen (specimen) BLOOD SPECIMEN / Unknown 05/07/2014 6:10 AM CDT 05/07/2014 6:16 AM CDT Mook Sweet MD LAB - HEMATOLOGY OR DERABLES [address] [phone] * BASIC METABOLIC PANEL (CALCIUM TOTAL) (05/07/2014 6:10 AM CDT) Only the most recent of3 resultswithin the time period is included. BUN 12 7 - 26 mg/dL [facility] Creatinine 0.9 0.6 - 1.2 mg/dL [facility] Sodium 140 136 - 145 mmol/L [facility] Potassium 3.8 3.5 - 4.5 mmol/L [facility] Chloride 106 98 - 107 mmol/L [facility] CO2 24 22 - 29 mmol/L [facility] Glucose 104 70 - 115 mg/dL [facility] Calcium 9.1 8.4 - 10.2 mg/dL [facility] Anion Gap 14 8 - 18 [facility] BUN/Creatinine Ratio 13 7 - 23 [facility] Osmolality Calculated 275 270 - 300 mOsm/kg [facility] eGFR >60 >60 mL/min/1.7 3 m2 [facility] Blood specimen (specimen) BLOOD SPECIMEN / Unknown 05/07/2014 6:10 AM CDT 05/07/2014 6:16 AM CDT Mook Sweet MD LAB - CHEMISTRY ORD ERABLES Performing Organization Address City/[facility] Co de Phone Number [address] [phone] * MAGNESIUM BLOOD (05/07/2014 6:10 AM CDT) Only the most recent of3 resultswithin the time period is included. Magnesium 1.9 1.6 - 2.6 mg/dL [facility] Blood specimen (specimen) BLOOD SPECIMEN / Unknown 05/07/2014 6:10 AM CDT 05/07/2014 6:16 AM CDT Mook Sweet MD LAB - CHEMISTRY ORD ERABLES Performing Organization Address City/[facility] [place] [address], [facility] [phone] * INFLUENZA A+B PCR (05/05/2014 10:17 PM CDT) [facility] Influenza A Non subtyped Not Detected Not Detected [facility] Influenza B Not Detected Not Detected [facility] Respiratory Syncytial Virus Not Detected Not Detected [facility] RSV B Not Detected Not Detected [facility] Nasopharyngeal NASOPHARYNGEAL SWAB / Unknown 05/05/2014 10:17 PM CDT 05/06/2014 10:21 PM CDT Narrative [facility] - 05/07/2014 1:03 AM CDT Assay performed by [employer]. NOTE: Negative results for Influenza A, Influenza B or RSV do not preclude influenza virus or RSV infection and should not be used as the sole basis for diagnosis, treatment or patient management decisions. Mook Sweet MD LAB - MICROBIOLOGY ORDERABLES Performing Organization Address [facility] [place] [address], [facility] [phone] * INFLUENZA A+B ANTIGEN RAPID (05/05/2014 10:17 PM CDT) [facility] Influenza A Rapid Test Negative Negative [facility] Influenza B Rapid Test Negative Negative [facility] Nasopharyngeal SPECIMEN FROM NASOPHARYNGEAL STRUCTURE / Unknown 05/05/2014 10:17 PM CDT 05/05/2014 10:32 PM CDT Narrative [facility] - 05/05/2014 10:54 PM CDT Specimen Type->Nasopharyngeal If clinical conditions warrant, molecular testing for Influenza offers superior sensitivity (>98%) and is available by ordering INFLUENZA/RSV MAY [[id number]]. To add to current sample within [address] an electronic or signed manual requisition order and call the [facility] at [phone] with your request. The positive and negative predictive values of rapid influenza testing vary considerably depending upon the prevalence on influenza in the community. *False-positive results are more likely to occur when disease prevalence is low. *False-negative results are more likely to occur when disease prevalence is high. *Current local influenza prevalence can be obtained by calling the Director of Microbiology at [phone]. Herminia Simon MD LAB - MICROBIOLOGY O [place] Performing Organization Address City/[facility]/[place] [address], [facility] [phone] * LACTIC ACID WHOLE BLOOD (05/05/2014 9:57 PM CDT) Lactic Acid Whole Blood 2.7 0.5 - 3.4 mmol/L [facility] Blood specimen (specimen) BLOOD SPECIMEN / Unknown 05/05/2014 9:57 PM CDT 05/05/2014 9:57 PM CDT Herminia Simon MD LAB - CHEMISTRY SHAMAR HERMOSILLO Performing Organization Address [facility] Co de Phone Number [address] [phone] * CULTURE BLOOD (05/05/2014 9:33 PM CDT) Only the most recent of2 resultswithin the time period is included. Pathologist [facility] Culture Blood No Growth at 5 days [facility] Blood specimen (specimen) BLOOD SPECIMEN / Unknown 05/05/2014 9:33 PM CDT 05/05/2014 10:13 PM CDT Narrative [facility] - 05/10/2014 10:15 PM CDT Draw 15 minutes after Culture 1 from a different site Specimen Type->Blood Herminia Simon MD LAB - MICROBIOLOGY O [place] Performing Organization Address [facility]/[place] [address], [facility] [phone] * (ABNORMAL) CBC W/O DIFFERENTIAL (05/05/2014 9:29 PM CDT) WBC 9.7 3.5 - 10.5 10 3/uL [facility] RBC 6.29(H) 4.30 - 5.70 10 6/uL [facility] Hemoglobin 14.8 13.5 - 17.5 g/dL [facility] Hematocrit 45.8 39.0 - 50.0 % [facility] MCV 72.8(L) 81.0 - 97.0 fL [facility] MCH 23.5(L) 28.0 - 34.0 pg [facility] MCHC 32.3 32.0 - 36.0 g/dL [facility] Platelet Count 211 150 - 400 10 3/uL [facility] RDW-SD 38.2 36.0 - 50.0 fL [facility] RDW-CV 14.6 11.2 - 14.8 % [facility] MPV 10.2 9.3 - 12.8 fL [facility] nRBC Absolute 0.00 0 10 3/uL [facility] nRBC Auto 0.0 0 /100 WBC [facility] Blood specimen (specimen) BLOOD SPECIMEN / Unknown 05/05/2014 9:29 PM CDT 05/05/2014 9:40 PM CDT Herminia Simon MD LAB - HEMATOLOGY ORD ERABLES Performing Organization Address City/State/[facility] Co de Phone Number [address] [phone] * STREP A SCREEN DIRECT (05/03/2014 12:52 PM CDT) [facility] Rapid Strep A Screen Negative Negative [facility] Throat swab (specimen) ENTIRE THROAT (SURFACE REGION OF NECK) / Unknown 05/03/2014 12:52 PM CDT 05/03/2014 12:54 PM CDT Narrative [facility] - 05/03/2014 1:06 PM CDT Specimen Type->Throat Swab Rapid test for Group A Beta Streptococcus is NEGATIVE. A Negative, Direct Test for Group A Streptococcus will be followed with a confirmatory Throat Culture when 2 swabs have been submitted. Roro Holguin MD LAB - MICROBIOLOGY ORDERABLES Performing Organization Address City/[facility]/ZIP Co de Phone Number [address] [phone] * CULTURE STREP GROUP A (05/03/2014 12:52 PM CDT) Pathologist [facility] Culture Beta Strep No Growth of Groups A, C or G Beta Streptococc us. [facility] Throat swab (specimen) ENTIRE THROAT (SURFACE REGION OF NECK) / Unknown 05/03/2014 12:52 PM CDT 05/03/2014 1:06 PM CDT Roro Holguin MD LAB - MICROBIOLOGY ORDERABLES [address] [phone] * PHOSPHORUS BLOOD (07/04/2013 2:30 AM CDT) [facility] Phosphorus 3.2 2.3 - 4.7 mg/dL [facility] Blood specimen (specimen) BLOOD SPECIMEN / Unknown 07/04/2013 2:30 AM CDT 07/04/2013 3:09 AM CDT Sara More MD LAB - CHEMISTRY [place] Performing Organization Address [facility]/ZIP Co de Phone Number [address] [phone] * (ABNORMAL) HEPATIC FUNCTION PANEL (07/04/2013 2:30 AM CDT) [facility] Bilirubin Conjugated 0.3 0.0 - 0.5 mg/dL [facility] Bilirubin Unconjugated 0.3 Unconjugated Bilirubin is a calculated value: Reference ranges have not been established. mg/dL [facility] Albumin/Globulin Ratio 1.0(L) 1.1 - 2.3 [facility] Protein Total 7.5 6.0 - 8.3 g/dL [facility] Albumin 3.7 3.4 - 5.0 g/dL [facility] Bilirubin Total 0.6 0.2 - 1.2 mg/dL [facility] Alkaline Phosphatase 94 40 - 150 Units/L [facility] ALT 20 0 - 55 Units/L [facility] AST 23 5 - 34 Units/L [facility] Blood specimen (specimen) BLOOD SPECIMEN / Unknown 07/04/2013 2:30 AM CDT 07/04/2013 3:09 AM CDT Sara More MD LAB - CHEMISTRY SHAMAR HERMOSILLO [facility] [address] [phone] * EKG 12-LEAD (07/04/2013 12:00 AM CDT) [facility] EKG [facility] Comment: Exam Date/Time: Jul [...] available Confirmed by MD Carole, Penny ([id number]), medical transcription editor Sylvia Lester ([id number]) on 07/10/2013 2:56:54 PM Referred By: MARIAM Confirmed By:Penny Lam MD 07/04/2013 Sara More MD ECG ORDERABLES Performing Organization Address [facility]/ZIP Co de Phone Number [facility] * (ABNORMAL) COMPREHENSIVE METABOLIC PANEL (07/03/2013 2:10 PM CDT) Pathologist [facility] BUN 11 7 - 26 mg/dL [facility] Anion Gap 17 8 - 18 [facility] BUN/Creatinine Ratio 11 7 - 23 [facility] Osmolality Calculated 275 270 - 300 mOsm/kg [facility] Albumin/Globulin Ratio 1.0(L) 1.1 - 2.3 [facility] Creatinine 1.0 0.6 - 1.2 mg/dL [facility] Sodium 141 136 - 145 mmol/L [facility] Potassium 4.4 3.5 - 4.5 mmol/L [facility] Chloride 104 98 - 107 mmol/L [facility] CO2 24 22 - 29 mmol/L [facility] Glucose 60(L) 70 - 115 mg/dL [facility] Calcium 9.4 8.4 - 10.2 mg/dL [facility] Protein Total 7.8 6.0 - 8.3 g/dL [facility] Albumin 3.9 3.4 - 5.0 g/dL [facility] Bilirubin Total 1.4(H) 0.2 - 1.2 mg/dL [facility] Alkaline Phosphatase 90 40 - 150 Units/L [facility] ALT 19 0 - 55 Units/L [facility] AST 28 5 - 34 Units/L [facility] eGFR >60 >60 mL/min/1.7 3 m2 [facility] Blood specimen (specimen) BLOOD SPECIMEN / Unknown 07/03/2013 2:10 PM CDT 07/03/2013 2:12 PM CDT Ed Peres MD LAB - CHEMISTRY SHAMAR HERMOSILLO [facility] Organization Address City/State/[facility] Co de Phone Number [address] [phone] * XR ANKLE 3+ VW RIGHT (01/27/2011 6:54 PM SHOWER ATTENDANT) Anatomical Region Laterality Modality Lower Extremity Radiographic Lizbet ging 01/27/2011 6:58 PM SHOWER ATTENDANT Narrative 01/27/2011 6:58 PM SHOWER ATTENDANT RIGHT ANKLE INDICATION: Right ankle pain after [...] abnormality. Orlin Duval MD DIAGNOSTIC IMAGING [facility] Care Teams Textile Colorist Dyer Relationship Specialty Start Date End Date Avelino Rico MD [facility] [address] [facility] [address] [place] [address] PCP - General 03/23/18
--- OUTSIDE RECORDS SUMMARY | 2024-05-05 19:23 | XMS_ITS | Clinical Summary ---
Author Organization [facility] Address [address] [place] [id number] Care Team Providers Care Miner Name Role Phone Avelino Rico MD Primary Care Provider [phone] Allergies Active Allergy Reactions Criticality Noted Date [...] patient's age to complete this topic Insurance [facility] AETNA S[employer] [facility] Care Teams Miner Relationship Specialty Start Date End Date Avelino Rico MD PCP - General Emergency Medicine 09/03/20
--- OUTSIDE RECORDS SUMMARY | 2024-05-05 19:23 | XMS_ITS | Clinical Summary ---
Author Organization [facility] Address [address] [place] [address] Care Team Providers Care Computer Specialist Name Role Phone Avelino Rico MD Primary Care Provider [phone] Source Comments [facility],non-owned Affiliates and Associated Physician Practices is amultiple site organization consisting of ambulatory clinics and hospital sitesin [place], [place], [place] and [place]. This disclosure is being madepursuant to the Care Everywhere program and may not contain all information available regarding this patient. Last updated 17.[facility] Allergies Active Allergy Reactions Criticality Noted [...] Comments Blood Pressure 126/78 03/23/2018 9:04 AM CHUCK WAGON COOK Pulse 83 03/23/2018 9:04 AM CHUCK WAGON COOK Temperature 37.1 C (98.8 F) 03/23/2018 9:04 AM CHUCK WAGON COOK Respiratory Rate 18 03/23/2018 9:04 AM CHUCK WAGON COOK Oxygen Saturation 99% 03/23/2018 9:04 AM CHUCK WAGON COOK Inhaled Oxygen Concentration - - Weight 80.5 kg (177 lb 6.4 oz) 03/23/2018 9:04 A M CHUCK WAGON COOK Height 185.4 cm (6' 1 ) 03/07/2018 9:28 AM CHUCK WAGON COOK Body Mass Index 23.41 03/07/2018 9:28 AM CHUCK WAGON COOK Plan of Treatment Health Maintenance Due Date [...] age to complete this topic Care Teams Computer Specialist Relationship Specialty Start Date End Date Avelino Rico MD [address] [facility] [place] [address] PCP - General 03/23/18
--- OUTSIDE RECORDS SUMMARY | 2024-05-05 19:23 | XMS_ITS | Referral Summary ---
Author Organization [facility] Address [address] [place] [address] Care Team Providers Care Internet Merchant Name Role Phone Avelino Rico MD Primary Care Provider [phone] Source Comments [facility],non-owned Affiliates and Associated Physician Practices is amultiple site organization consisting of ambulatory clinics and hospital sitesin [place], [place], [place] and [place]. This disclosure is being madepursuant to the Care Everywhere program and may not contain all information available regarding this patient. Last updated 17.[facility] Allergies Active Allergy Reactions Criticality Noted Date [...] Comments Blood Pressure 126/78 03/23/2018 9:04 AM INTERNET SYSTEMS ADMINISTRATOR Pulse 83 03/23/2018 9:04 AM INTERNET SYSTEMS ADMINISTRATOR Temperature 37.1 C (98.8 F) 03/23/2018 9:04 AM INTERNET SYSTEMS ADMINISTRATOR Respiratory Rate 18 03/23/2018 9:04 AM INTERNET SYSTEMS ADMINISTRATOR Oxygen Saturation 99% 03/23/2018 9:04 AM INTERNET SYSTEMS ADMINISTRATOR Inhaled Oxygen Concentration - - Weight 80.5 kg (177 lb 6.4 oz) 03/23/2018 9:04 A M INTERNET SYSTEMS ADMINISTRATOR Height 185.4 cm (6' 1 ) 03/07/2018 9:28 AM INTERNET SYSTEMS ADMINISTRATOR Body Mass Index 23.41 03/07/2018 9:28 AM INTERNET SYSTEMS ADMINISTRATOR Plan of Treatment Not on file Care Teams Internet Merchant Relationship Specialty Start Date End Date Avelino Rico MD [address] [place] [address] PCP - General 03/23/18
--- OUTSIDE RECORDS SUMMARY | 2024-05-05 19:23 | XMS_ITS | Encounter Summary ---
Author Organization [facility] Address [address] [place] [address] Care Team Providers Care Conformal Pad Former Name Role Phone Avelino Rico MD Primary Care Provider [phone] Reason for Visit * Reason Onset Date Comments Pulmonary Function Test 09/21/2018 Encounter Details Date Type Department Care Team (Late st Contact Info) Description 09/21/2018 Telephone [facility] [address] [place] [address] Alyssa Garcia Pulmonary Function Test Social History [...] on filedocumented in this encounter Care Teams Conformal Pad Former Relationship Specialty Start Date End Date Avelino Rico MD [address] [place] [id number] PCP - General 03/23/18 documented as of this encounter
--- NOTE | 2024-05-05 19:48 | ED_ITS ---
HPI - URI/Sore Throat General Chief Complaint: Upper Respiratory Infection Stated Complaint: FLU SYMPTOMS. TESTED POSITIVE TODAY Time Seen by Provider: 05/05/24 18:57 Source: patient Mode of arrival: ambulatory Limitations: no limitations History of Present Illness HPI Narrative: This is a 33-year-old male that presents to the emergency department for cold symptoms. Ongoing over the last 3 days. Reports his is currently influenza positive. Reports fevers, chills, myalgias, sore throat, cough, congestion. Related Data Home Medications ?Medication ?Instructions ?Recorded ?Confirmed ?Last Taken ?Type Symbicort 10/03/21 Unknown History albuterol 10/03/21 Unknown History Allergies Allergy/AdvReac Type Severity Reaction Status Date / Time aspirin Allergy Intermediate Swelling Verified 05/05/24 17:55 of Lip/Tongue/Throat ibuprofen Allergy Intermediate LIP Verified 05/05/24 17:55 SWELLING dog dander Allergy Unknown Unknown Verified 05/05/24 17:55 Review of Systems Review of Systems: All systems reviewed & are unremarkable except as noted in HPI and below PMFSH Past Medical History Medical History Asthma COVID-19 Sickle cell trait Surgical History Surgical History No pertinent past surgical history Family History Family History Father Sickle cell disease Sibling Sickle cell trait Mother Drug overdose Social History Social History Social History: The patient lives in [place] with his . He has no children. He works at [employer]. Lifelong nonsmoker. Consumes perhaps 1 alcoholic beverage a week. No illicit substance use. He designates his as his surrogate decision maker and he wishes to be a full code. Smoking packs per day: 10 Smoking cigarettes per day: 200.0 Years smoked: 3 Smoking pack-years: 30.00 Smoking status: Former smoker Smoking end date: 04/07/13 Living arrangements: with family Gender identity (if verbalized by the patient): Male Sexual Orientation (if Verbalized by the Patient): Straight or Heterosexual Spiritual care concerns: No Exam Narrative: GENERAL: Well-appearing, well-nourished, and in no acute distress. HEAD: Normocephalic, atraumatic. EYES: EOMI. ENT: Nares clear, no rhinorrhea or epistaxis. Mucous membranes moist. Oropharynx without tonsillar hypertrophy exudate or other lesions. Bilateral TMs pearly valdez non-bulging NECK: Supple. No adenopathy or masses. CHEST: Clear to auscultation. No respiratory distress. No wheezes rales or rhonchi HEART: Regular rate and rhythm. No murmur heard. Normal peripheral pulses. EXTREMITIES: Normal range of motion. No edema. SKIN: Warm, dry, no rash. NEURO: No focal deficits. Alert and oriented x3. PSYCH: Normal mood and affect Course Course Emergency Course: Patient updated on his workup and agrees with plan of care Vital Signs Vital signs: Vital Signs Temperature 98.9 F 05/05/24 18:06 Pulse Rate 100 05/05/24 18:06 Respiratory Rate 20 05/05/24 18:06 Blood Pressure 125/83 05/05/24 18:06 Pulse Oximetry 97 05/05/24 18:06 Oxygen Delivery Room Air 05/05/24 18:06 Temperature 98.9 F 05/05/24 18:06 Pulse Rate 100 05/05/24 18:06 Respiratory Rate 20 05/05/24 18:06 Blood Pressure 125/83 05/05/24 18:06 Pulse Oximetry 97 05/05/24 18:06 Oxygen Delivery Room Air 05/05/24 18:06 MDM - URI/Sore Throat MDM Narrative Medical decision making narrative: Patient presents emergency department for cold symptoms. He is afebrile nontoxic appearing. Patient is influenza A positive. Chest x-ray without acute cardiopulmonary abnormality. Oxygen saturations normal on room air. Lungs are clear exam. Patient will be started on Tamiflu. Instructed on other symptomatic care infection. He is to follow up with primary provider. He was given warnings to return to the ER Differential Diagnosis Differential diagnosis: Likely upper respiratory infection, sinusitis, viral infection, bronchitis, influenza and other (COVID) Lab Data Attestation: I reviewed the patient's lab results. Labs: Lab Results 05/05/24 Range/Units 18:13 Influenza A (RT-PCR) Positive A (Negative) Influenza B (RT-PCR) Negative (Negative) RSV (RT-PCR) Negative (Negative) SARS-CoV-2 RNA (RT-PCR) Negative (Negative) Imaging Data Radiologist's impression: ITS Impressions Chest X-Ray 05/05/24 18:29 IMPRESSION: No acute cardiopulmonary process. Critical Care Time Critical Care Time Critical Care Time: No Discharge Plan Discharge Clinical Impression: Influenza A Patient Disposition: Home, Self-Care Condition: Stable Instructions: Influenza (ED) Additional Instructions: Return to the emergency department for worsening symptoms, or any other concerns Remain well-hydrated, get plenty of rest. Take Tylenol or Motrin [id number] for pain as needed. Flonase for nasal congestion. Zyrtec for runny nose. Lozenges or Chloraseptic spray for sore throat. Take Tamiflu as prescribed Follow up with primary care doctor Patient Language: Korean Prescriptions: New oseltamivir 75 mg capsule 75 mg PO Q12H 5 Days Qty: 10 0RF No Action Symbicort albuterol prednisone 20 mg tablet 40 mg PO DAILY Qty: 10 0RF benzonatate 200 mg capsule 200 mg PO TID PRN (Reason: cough) Qty: 30 0RF Follow-up/Referrals: Avelino Rico MD [Primary Care Provider] - Stand Alone Forms: Work/School Release IP
== END 2024-05-05 20:39 | disposition home or self-care (01) ==
PROVIDERS: Emergency Medicine; Emergency Provider Physician Assistant; PCP Emergency Medicine
DX: J10.1 Influenza due to other identified influenza virus with other respiratory manifestations (principal); J45.909 Unspecified asthma, uncomplicated; D57.3 Sickle-cell trait; Z86.16 Personal history of COVID-19; Z20.822 Contact with and (suspected) exposure to COVID-19
CPT/HCPCS: 71046; 87637; 99283